=== PATIENT | male | born 1945 | race Caucasian/White ===

== ENCOUNTER 2016-07-01 15:20 | Inpatient (IN) | payer MEDICARE, OTHER ==
[2016-07-01] MEDS ORDERED: SODIUM CHLORIDE 0.9% 1,000 ML IV ONE (15:35)
--- NOTE | 2016-07-01 15:44 | ED ---
General Adult HPI - General Chief complaint: Extremity Injury, Lower Stated complaint: Fall Time Seen by Provider: 07/01/16 15:31 Source: patient, EMS, RN notes reviewed Mode of arrival: EMS Limitations: no limitations - History of Present Illness Initial comments: Patient is a pleasant 70-year-old male presenting to the emergency department following a fall. Incident occurred around 8 or so this morning. Patient states his chair broke and he fell to the ground. Patient did land on his right hip. Patient complains of pain since that time. Pain increases with movement. Patient is unable to get up or bear weight with the right hip. Patient is unclear if he hit his head. Patient has mild discomfort right posterior head. Patient denies any syncope or loss of consciousness. No neck or back pain. No chest pain or dyspnea. No abdominal pain. - Related Data Home Medications Medication Instructions Recorded Confirmed ALPRAZolam [Xanax] 0.25 mg PO Q8HR PRN 01/14/16 01/14/16 Albuterol Inhaler [Ventolin Hfa 1 - 2 puff INHALATION Q6HR PRN 01/15/16 01/15/16 Inhaler] Previous Rx's Medication Instructions Recorded HYDROcodone/APAP 7.5-325MG [[place] 1 tab PO Q6HR PRN #28 tab 01/14/16 7.5-325] Budesonide-Formot 160-4.5 Mcg 2 puff INHALATION BID #1 inhaler 01/15/16 [Symbicort 160-4.5 Mcg Inhaler] Levofloxacin [Levaquin] 750 mg PO DAILY #7 tab 01/15/16 Allergies Allergy/AdvReac Type Severity Reaction Status Date / Time No Known Allergies Allergy Verified 01/14/16 08:14 Review of Systems ROS Statement: Those systems with pertinent positive or pertinent negative responses have been documented in the HPI. ROS Other: All systems not noted in ROS Statement are negative. Constitutional: Denies: fever Eyes: Denies: eye pain ENT: Denies: ear pain Respiratory: Denies: cough Cardiovascular: Denies: chest pain Endocrine: Denies: fatigue Gastrointestinal: Denies: abdominal pain Genitourinary: Denies: dysuria Musculoskeletal: Reports: arthralgia Skin: Denies: rash Neurological: Reports: headache Past Medical History Past Medical History: COPD, Osteoarthritis (OA), Thyroid Disorder Additional Past Medical History / Comment(s): knees History of Any Multi-Drug Resistant Organisms: None Reported Past Surgical History: Orthopedic Surgery Additional Past Surgical History / Comment(s): knee surg. Past Anesthesia/Blood Transfusion Reactions: No Reported Reaction Past Psychological History: No Psychological Hx Reported Smoking Status: Former smoker Past Alcohol Use History: Rare Past Drug Use History: Marijuana Additional Drug Use History / Comment(s): rare use - Past Family History Mother Family Medical History: No Reported History ( at age 90), Unable to Obtain Father Family Medical History: Renal Disease ( from complications related to nephrostomy or kidney surgery) Brother(s) Family Medical History: Congestive Heart Failure (CHF) Sister(s) Family Medical History: Cancer (Lung cancer) Daughter(s) Family Medical History: No Reported History General Exam Limitations: no limitations General appearance: alert, in no apparent distress Head exam: Present: other (Mild soft tissue swelling right posterior scalp) Eye exam: Present: normal appearance, PERRL, EOMI ENT exam: Present: normal oropharynx Neck exam: Present: normal inspection. Absent: tenderness Respiratory exam: Present: normal lung sounds bilaterally. Absent: chest wall tenderness Cardiovascular Exam: Present: regular rate, normal rhythm Expanded Peripheral pulses: 2+: Posterior Tibialis (R), Dorsalis Pedis (R) GI/Abdominal exam: Present: soft. Absent: distended, tenderness Extremities exam: Present: tenderness (Moderate to severe tenderness right hip region.), other (Extremity is neurovascular intact) Back exam: Present: normal inspection. Absent: tenderness Neurological exam: Present: alert, CN II-XII intact. Absent: motor sensory deficit Expanded Motor strength exam: RUE: 5, LUE: 5, RLE: 5, LLE: 5 Psychiatric exam: Present: normal affect, normal mood Skin exam: Absent: rash Course Vital Signs 07/01/16 07/01/16 07/01/16 15:28 15:30 15:31 Temperature 98.6 F Pulse Rate 100 107 H Pulse Rate [ Apical] Respiratory 20 24 Rate Blood Pressure 176/106 207/89 O2 Sat by Pulse 96 97 Oximetry 07/01/16 07/01/16 07/01/16 15:42 16:27 17:00 Temperature 98.4 F Pulse Rate 98 95 97 Pulse Rate [ 105 H Apical] Respiratory 20 20 20 Rate Blood Pressure 178/91 179/77 157/87 O2 Sat by Pulse 98 99 99 Oximetry 07/01/16 07/01/16 18:00 19:00 Temperature Pulse Rate 100 98 Pulse Rate [ Apical] Respiratory 18 20 Rate Blood Pressure 156/97 178/80 O2 Sat by Pulse 98 95 Oximetry - Reevaluation(s) Reevaluation #1: 07/01/16 15:41 Patient did receive morphine by EMS just prior to arrival EKG Findings - EKG Comments: EKG Findings:: Sinus tachycardia 106. WA 132. QRS 94. QT 356. QTc 472. Normal axis. Normal QRS. Nonspecific ST-T. Medical Decision Making - Medical Decision Making Patient reevaluated and updated. Case discussed with practitioner Emelina bell, who will admit for Dr. Ceballos, covering for Dr. Canas. Patient will be given IV fluids and will need to have CPK and renal function monitored. Consult will be placed for orthopedics, Dr. Long notified. - Lab Data Result diagrams: 07/01/16 15:30 07/01/16 15:30 Lab Results 07/01/16 07/01/16 07/01/16 Range/Units 15:30 15:30 15:30 WBC 10.8 H (3.8-10.6) k/uL RBC 5.31 (4.30-5.90) m/uL Hgb 15.4 (13.0-17.5) gm/dL Hct 47.5 (39.0-53.0) % MCV 89.4 (80.0-100.0) fL MCH 29.0 (25.0-35.0) pg MCHC 32.5 (31.0-37.0) g/dL RDW 14.4 (11.5-15.5) % Plt Count 253 (150-450) k/uL Neutrophils % 80 % Lymphocytes % 13 % Monocytes % 6 % Eosinophils % 0 % Basophils % 0 % Neutrophils # 8.6 H (1.3-7.7) k/uL Lymphocytes # 1.4 (1.0-4.8) k/uL Monocytes # 0.7 (0-1.0) k/uL Eosinophils # 0.0 (0-0.7) k/uL Basophils # 0.0 (0-0.2) k/uL PT 10.7 (9.0-12.0) sec INR 1.1 (<1.1) APTT 22.7 (22.0-30.0) sec Sodium 142 (137-145) mmol/L Potassium 3.9 (3.5-5.1) mmol/L Chloride 103 (98-107) mmol/L Carbon Dioxide 27 (22-30) mmol/L Anion Gap 12 mmol/L BUN 16 (9-20) mg/dL Creatinine 0.89 (0.66-1.25) mg/dL Est GFR (MDRD) Af Amer >60 (>60 ml/min/1.73 sqM) Est GFR (MDRD) Non-Af >60 (>60 ml/min/1.73 sqM) Glucose 146 H (74-99) mg/dL Calcium 9.0 (8.4-10.2) mg/dL Total Bilirubin 1.2 (0.2-1.3) mg/dL AST 140 H (17-59) U/L ALT 49 (21-72) U/L Alkaline Phosphatase 99 (38-126) U/L Creatine Kinase (55-170) U/L Total Protein 7.9 (6.3-8.2) g/dL Albumin 4.2 (3.5-5.0) g/dL 07/01/16 Range/Units 15:30 WBC (3.8-10.6) k/uL RBC (4.30-5.90) m/uL Hgb (13.0-17.5) gm/dL Hct (39.0-53.0) % MCV (80.0-100.0) fL MCH (25.0-35.0) pg MCHC (31.0-37.0) g/dL RDW (11.5-15.5) % Plt Count (150-450) k/uL Neutrophils % % Lymphocytes % % Monocytes % % Eosinophils % % Basophils % % Neutrophils # (1.3-7.7) k/uL Lymphocytes # (1.0-4.8) k/uL Monocytes # (0-1.0) k/uL Eosinophils # (0-0.7) k/uL Basophils # (0-0.2) k/uL PT (9.0-12.0) sec INR (<1.1) APTT (22.0-30.0) sec Sodium (137-145) mmol/L Potassium (3.5-5.1) mmol/L Chloride (98-107) mmol/L Carbon Dioxide (22-30) mmol/L Anion Gap mmol/L BUN (9-20) mg/dL Creatinine (0.66-1.25) mg/dL Est GFR (MDRD) Af Amer (>60 ml/min/1.73 sqM) Est GFR (MDRD) Non-Af (>60 ml/min/1.73 sqM) Glucose (74-99) mg/dL Calcium (8.4-10.2) mg/dL Total Bilirubin (0.2-1.3) mg/dL AST (17-59) U/L ALT (21-72) U/L Alkaline Phosphatase (38-126) U/L Creatine Kinase 4693 H (55-170) U/L Total Protein (6.3-8.2) g/dL Albumin (3.5-5.0) g/dL - Radiology Data Radiology results: image reviewed (Hip x-ray shows no fracture of the femur. Questionable iliac crest fracture. Chest x-ray shows no acute process. CT of the right hip shows no fracture however does not show eyes the iliac crest region.) Disposition Clinical Impression: Rhabdomyolysis, Fracture of iliac crest Disposition: ADMITTED IP TO THIS HOSP
[2016-07-01 15:52] LABS: Basophils % (A) 0 %; CH 29.2; CHCM 32.8; Eosinophils % (A) 0 %; HCT 47.5 % (39.0-53.0); HDW 2.69; HGB 15.4 gm/dL (13.0-17.5); Luc % (Auto) 1; Lymphocytes # (A) 1.4 k/uL (1.0-4.8); Lymphocytes % (A) 13 %; MCHC 32.5 g/dL (31.0-37.0); MCV 89.4 fL (80.0-100.0); Mean Platelet Volume 7.2; Monocytes # (A) 0.7 k/uL (0-1.0); Monocytes % (A) 6 %; Neutrophils # (A) 8.6 k/uL (1.3-7.7); Neutrophils % (A) 80 %; RBC 5.31 m/uL (4.30-5.90); RDW 14.4 % (11.5-15.5); WBC 10.8 k/uL (3.8-10.6); WBC (Perox) 10.41
[2016-07-01 15:56] LABS: INR 1.1 (<1.1); Partial Thromboplastin Time 22.7 sec (22.0-30.0); Prothrombin Time 10.7 sec (9.0-12.0)
[2016-07-01 16:01] LABS: ALT 49 U/L (21-72); AST 140 U/L (17-59); Alkaline Phosphatase 99 U/L (38-126); Anion Gap 12 mmol/L; Blood Urea Nitrogen 16 mg/dL (9-20); Carbon Dioxide 27 mmol/L (22-30); Chloride 103 mmol/L (98-107); Glucose 146 mg/dL (74-99); Non-African American GFR(MDRD) >60 (>60 ml/min/1.73 sqM); Potassium 3.9 mmol/L (3.5-5.1); Sodium 142 mmol/L (137-145); Total Bilirubin 1.2 mg/dL (0.2-1.3); Total Protein 7.9 g/dL (6.3-8.2)
--- NOTE | 2016-07-01 16:18 | CT ---
EXAMINATION TYPE: CT brain wo con DATE OF EXAM: 07/01/2016 4:03 PM COMPARISON: NONE HISTORY: 70-year-old male fell today and hit head. Patient has high blood pressure. TECHNIQUE: Examination was done in axial plane without intravenous contrast. Coronal and sagittal r econstructions performed. CT DLP: 2116 mGycm Automated exposure control for dose reduction was used. FINDINGS: There is extensive motion artifact limiting the evaluation. No calvarial fracture is seen. Large scal p hematoma posteriorly extending up to the vertex. There is mild ventriculomegaly likely in part due to central cerebral atrophy. Moderate confluent per iventricular and deep white matter hypodensities. Allowing for all of the motion artifacts, no definite acute intracranial hemorrhage. No acute ischemi c changes, masses, mass effect, midline shift, or extra-axial fluid collection seen. No effacement of cerebral sulci or basal subarachnoid cisterns. Minimal opacification inferior most left mastoid air cells. IMPRESSION: 1. Extensive motion artifact limiting evaluation. No definite acute intracranial abnormality seen. 2. Large posterior scalp hematoma extending up towards the vertex. No underlying skull fracture. 3. Ventriculomegaly likely in part due to central cerebral atrophy. Correlate for a component of NPH. 4. Moderate confluent white matter hypodensities likely changes related to chronic small vessel ische arely disease.
--- NOTE | 2016-07-01 16:21 | XR ---
EXAMINATION TYPE: XR chest 1V portable DATE OF EXAM: 07/01/2016 4:16 PM Comparison: 10/27/2014 Clinical History: 70-year-old male with fall and pain Findings: Heart is upper limits of normal in size. Aorta and pulmonary vasculature within normal limits. Mild i nterstitial prominence is unchanged. No consolidation or pleural effusion seen. Impression: Chronic changes without acute process.
--- NOTE | 2016-07-01 16:29 | XR ---
EXAMINATION TYPE: XR Hip RT and AP Pelvis DATE OF EXAM: 07/01/2016 4:16 PM COMPARISON: NONE HISTORY: 70-year-old male right hip pain after fall TECHNIQUE: AP view pelvis and 2 views right hip. FINDINGS: Limited visualization of the femoral necks due to external rotation of the hips during patient positi oning. No displaced fracture seen at the hips. There is curvilinear bone density seen projecting above the right iliac bone. SI joints appear symmet linda and intact as does the pubic symphysis. IMPRESSION: 1. External rotation at the hips limiting adequate visualization of the femoral necks. No displaced h ip fracture seen. If the patient is nonweightbearing or concern for underlying occult fracture, CT or MRI can be performed. 2. Clinical correlation recommended for large curvilinear bone density projecting above the right amara ac bone. The possibility of an age indeterminate avulsion fracture of the right iliac crest is diffic ult to exclude but would be an unusual injury in an adult patient. Correlate for any focal symptoms i n this area and for any prior trauma history.
--- NOTE | 2016-07-01 17:07 | CT ---
EXAMINATION TYPE: CT hip RT wo con DATE OF EXAM: 07/01/2016 4:58 PM COMPARISON: Radiographs today HISTORY: 70-year-old male with right hip pain after fall injury. TECHNIQUE: Contiguous axial scanning of the right hip without IV contrast. Coronal and sagittal recon structions performed. CT DLP: 1102.6 mGycm Automated exposure control for dose reduction was used. FINDINGS: The patient's hip continues to remain prominently externally rotated. There is moderate degenerative joint space narrowing at the right hip. No acute fracture is seen of the acetabulum or proximal right femur. No significant hip joint effusion. There is prominent enthesopathy along the posterior superior margin of the acetabulum at the origin o f the tensor fascia kathryn. IMPRESSION: 1. THE PATIENT'S HIP CONTINUES TO REMAIN PROMINENTLY EXTERNALLY ROTATED. QUERY, IS THE PATIENT UNABLE TO REPOSITION THE HIP? NO ACUTE FRACTURE IS IDENTIFIED. 2. UNDERLYING MILD TO MODERATE OSTEOARTHROSIS. 3. THE RIGHT ILIAC CREST IS NOT INCLUDED ON THIS HIP EXAM. FURTHER CLINICAL CORRELATION IS RECOMMENDE D FOR THE RADIOGRAPHIC FINDINGS.
[2016-07-01] MEDS ORDERED: MORPHINE SULFATE 4 MG/ML SYRINGE IVP STA (19:02)
[2016-07-01] MEDS ORDERED: NALOXONE 0.4 MG/ML 1 ML VIAL IV PRN (19:48)
[2016-07-01] MEDS ORDERED: MORPHINE SULFATE 4 MG/ML SYRINGE IV PRN (19:48)
[2016-07-01] MEDS: SODIUM CHLORIDE 0.9% 1,000 ML IV SCH (21:05)
[2016-07-01 21:40] LABS: Appearance,Urine Clear (Clear); Bacteria,Urine Rare /hpf; Bilirubin,Urine Negative (Negative); Glucose,Urine (UA) Trace (Negative); Ketones,Urine Negative (Negative); Leukocyte Esterase,Urine Negative (Negative); Mucus,Urine Few /hpf; Nitrite,Urine Negative (Negative); PH, Urine 5.5 (5.0-8.0); Particle Count 5257; Protein,Urine 1+ (Negative); RBC,Urine 3 /hpf (0-5); Specific Gravity,Urine 1.023 (1.001-1.035); UA Billing (MACRO vs. MICRO) MICRO; Urobilinogen,Urine <2.0 mg/dL (<2.0); WBC,Urine 2 /hpf (0-5)
[2016-07-01] MEDS ORDERED: IPRATROPIUM-ALBUTEROL 3 ML NEB INHALATION PRN (22:42)
[2016-07-01] MEDS ORDERED: ALBUTEROL INHALER 60 PUFF/8 GM INHALER INHALATION PRN (22:42)
[2016-07-01] MEDS ORDERED: ALPRAZolam 0.5 MG TAB PO PRN (22:44)
[2016-07-02 01:04] LABS: Creatine Kinase MB 9.2 ng/mL (0.0-2.4)
[2016-07-02] MEDS: SODIUM CHLORIDE 0.9% 1,000 ML IV SCH ×2 (05:19→09:26)
[2016-07-02 08:03] LABS: Anion Gap 7 mmol/L; Blood Urea Nitrogen 16 mg/dL (9-20); Calcium 8.3 mg/dL (8.4-10.2); Carbon Dioxide 26 mmol/L (22-30); Chloride 107 mmol/L (98-107); Glucose 116 mg/dL (74-99); Non-African American GFR(MDRD) >60 (>60 ml/min/1.73 sqM); Potassium 3.8 mmol/L (3.5-5.1); Sodium 140 mmol/L (137-145)
[2016-07-02 08:07] LABS: Creatine Kinase MB 6.4 ng/mL (0.0-2.4)
[2016-07-02] MEDS: SYMBICORT 160-4.5 MCG INHALER INHALATION SCH ×2 (08:21→21:18)
[2016-07-02] MEDS: PANTOPRAZOLE 40 MG/10 ML VIAL IV SCH (09:25)
--- NOTE | 2016-07-02 10:12 | P.CNOR ---
History of Present Illness - HPI Consult date: 07/01/16 History of present illness: This is a 70-year-old male who presented to the on 07/01/2016 after a fall causing right hip pain. Patient states he fell out of his chair 2 days ago and landed on the right hip. Orthopedics is consulted due to possible avulsion fracture noted to the right hip. Patient states pain is worse to the lateral right hip, but patient states the pain has improved. Patient denies any numbness/weakness/tingling. Patient states he has not been able to ambulate since the injury. Patient denies being on any anticoagulants. Patient denies any known past injuries of the hip. Review of Systems See HPI. Past Medical History Past Medical History: COPD, Osteoarthritis (OA) Additional Past Medical History / Comment(s): knees-arthritis History of Any Multi-Drug Resistant Organisms: None Reported Past Surgical History: Orthopedic Surgery Additional Past Surgical History / Comment(s): knee surg. Past Anesthesia/Blood Transfusion Reactions: No Reported Reaction Past Psychological History: No Psychological Hx Reported Smoking Status: Former smoker Past Alcohol Use History: Rare Past Drug Use History: Marijuana Additional Drug Use History / Comment(s): rare use - Past Family History Mother Family Medical History: No Reported History, Unable to Obtain Father Family Medical History: Renal Disease Brother(s) Family Medical History: Congestive Heart Failure (CHF) Sister(s) Family Medical History: Cancer Daughter(s) Family Medical History: No Reported History Medications and Allergies Home Medications Medication Instructions Recorded Confirmed Type Albuterol Inhaler [Ventolin Hfa 2 puff INHALATION RT-QID PRN 01/15/16 07/01/16 History Inhaler] ALPRAZolam [Xanax] 1 mg PO HS PRN 07/01/16 07/01/16 History Budesonide-Formot 160-4.5 Mcg 2 puff INHALATION RT-BID 07/01/16 07/01/16 History [Symbicort 160-4.5 Mcg Inhaler] Ipratropium/Albuterol Sulfate 2 puff INHALATION RT-BID PRN 07/01/16 07/01/16 History [Combivent Respimat Inhaler] [place]-3 Fatty Acids/Fish Oil [Fish 1 cap PO DAILY 07/01/16 07/01/16 History Oil 1,000 mg Softgel] Triamcinolone 0.1% Cream [Kenalog] 1 applicatio TOPICAL BID PRN 07/01/16 History Allergies Allergy/AdvReac Type Severity Reaction Status Date / Time No Known Allergies Allergy Verified 01/14/16 08:14 Physical Examination Vital signs are stable. Patient has full foot and ankle motion. There is mild tenderness to palpation of the lateral aspect of the right hip. No ecchymosis. No pain with range of motion of the right hip. Neurovascular status is intact. Results - Labs Labs: Abnormal Lab Results - Last 24 Hours (Table) 07/01/16 07/02/16 07/02/16 Range/Units 21:30 00:03 07:09 Glucose 116 H (74-99) mg/dL Calcium 8.3 L (8.4-10.2) mg/dL Total Creatine Kinase 2420 H (55-170) U/L CK-MB (CK-2) 9.2 H* (0.0-2.4) ng/mL Urine Protein 1+ H (Negative) Urine Glucose (UA) Trace H (Negative) Urine Bacteria Rare H (None) /hpf Urine Mucus Few H (None) /hpf 07/02/16 Range/Units 07:09 Glucose (74-99) mg/dL Calcium (8.4-10.2) mg/dL Total Creatine Kinase 1580 H (55-170) U/L CK-MB (CK-2) 6.4 H* (0.0-2.4) ng/mL Urine Protein (Negative) Urine Glucose (UA) (Negative) Urine Bacteria (None) /hpf Urine Mucus (None) /hpf Result Diagrams: 07/01/16 15:30 07/02/16 07:09 Assessment and Plan (1) Right hip pain Status: Acute Plan: #1. PT to evaluate patient's ability to ambulate. #2. No surgery is planned at this time.
[2016-07-02 12:53] LABS: Creatine Kinase MB 4.8 ng/mL (0.0-2.4)
[2016-07-02] MEDS ORDERED: TRIAMCINOLONE 0.1% CREAM 80 GM TUBE TOPICAL PRN (14:34)
[2016-07-02] MEDS: HYDROcodone/APAP 5-325MG 1 EACH TAB PO PRN ×2 (14:58→22:47)
[2016-07-02] MEDS ORDERED: KETOROLAC 30 MG/ML 1 ML VIAL IVP PRN (15:59)
--- NOTE | 2016-07-02 20:23 | HP ---
DATE OF ADMISSION: Patient is admitted secondary to mechanical fall and found to have avulsion fracture of the right hip. Patient also was found to have elevated creatinine because of the fall. There was suspicion of rhabdomyolysis, although my suspicion is extremely low for that, as his CK is not high enough to cause rhabdomyolysis and UA did not show any blood or myoglobin. Patient may have sleep apnea. He is morbidly obese. Patient will be evaluated by Physical Therapy. Patient denied any fever or chills. Patient denied any dysuria, nausea, vomiting. Patient was having pain in the hip area after his fall. Patient denied any syncopal episode. REVIEW OF SYSTEMS: CONSTITUTIONAL: No fever, no malaise, no fatigue. HEENT: No recent visual problems or hearing problems. Denied any sore throat. CARDIOVASCULAR: No chest pain, orthopnea, PND, no palpitations, no syncope. PULMONARY: No shortness of breath, no cough, no hemoptysis. GASTROINTESTINAL: No diarrhea, no nausea, no vomiting, no abdominal pain. Normoactive bowel sounds. NEUROLOGICAL: No headaches, no weakness, no numbness. HEMATOLOGICAL: Denies any bleeding or petechiae. GENITOURINARY: Denies any burning micturition, frequency, or urgency. MUSCULOSKELETAL/RHEUMATOLOGICAL: As described in HPI. ENDOCRINE: Denies any polyuria or polydipsia. The rest of the 14 point review of systems is negative. PAST MEDICAL HISTORY: 1. COPD. 2. Osteoarthritis. 3. Patient may have sleep apnea. Patient does have all symptoms of sleep apnea, including daytime sleeping, excessive snoring and apneic episodes as described by his . SOCIAL HISTORY: Former smoker. Denied any alcohol abuse. Occasional use of marijuana. FAMILY HISTORY: Father had renal disease. Brother had congestive heart failure. Sister had cancer. Home medications include: 1. Albuterol. 2. Alprazolam. 3. Budesonide/Formoterol. 4. Combivent. 5. [place]-3 fatty acids. 6. Triamcinolone. ALLERGIES: NO KNOWN DRUG ALLERGIES. PHYSICAL EXAMINATION: VITAL SIGNS: Temperature 98.0, pulse of 95, respiratory rate of 16. Blood pressure is 150/81. Saturating at 95% on room air. GENERAL: Morbidly obese. Alert and oriented x3. HEENT: Pupils are round and equally reacting to light. EOMI. No scleral icterus. No conjunctival pallor. Normocephalic, atraumatic. No pharyngeal erythema. No thyromegaly. CARDIOVASCULAR: S1 and S2 present. No murmurs, rubs, or gallops. PULMONARY: Chest is clear to auscultation, no wheezing or crackles. ABDOMEN: Soft, nontender, nondistended, normoactive bowel sounds. No palpable organomegaly. MUSCULOSKELETAL: Deferred to Orthopedic Surgery. EXTREMITIES: No cyanosis, clubbing, or pedal edema. NEUROLOGICAL: Gross neurological examination did not reveal any focal deficits. SKIN: No rashes. LABORATORY DATA: All the imaging was reviewed. There is a large scalp hematoma as well without any underlying skull fracture. ASSESSMENT AND PLAN: 1. Mechanical fall and avulsion fracture of the iliac crest. Management as per Orthopedic Surgery. Pain management and physical therapy consultation and stabilization of the hip. 2. Elevated creatine kinase secondary to fall with low suspicion of rhabdomyolysis. Patient will be continued on IV fluids. 3. Morbid obesity. Counseling was provided. 4. Sleep apnea. Patient will need an outpatient sleep study. 5. Restrictive lung disease with a competent of obstructive lung disease and chronic obstructive pulmonary disease without any acute exacerbation. Continue his home medications. Patient probably can be discharged tomorrow to subacute rehabilitation, depending on the assessment from Physical Therapy and Occupational Therapy.
[2016-07-03] MEDS: SODIUM CHLORIDE 0.9% 1,000 ML IV SCH ×3 (07:14→15:11)
[2016-07-03] MEDS: SYMBICORT 160-4.5 MCG INHALER INHALATION SCH ×2 (08:22→20:35)
[2016-07-03] MEDS: PANTOPRAZOLE 40 MG/10 ML VIAL IV SCH (08:56)
[2016-07-03 14:22] VITALS: RESP 18
[2016-07-03] MEDS: HYDROcodone/APAP 5-325MG 1 EACH TAB PO PRN ×2 (15:51→20:00)
--- NOTE | 2016-07-03 20:24 | PN ---
Patient's pain is fairly controlled and he is complaining of pain now and patient is admitted for pelvic fracture. Awaiting disposition to subacute rehabilitation tomorrow. His CK has come down. No renal dysfunction at this time. REVIEW OF SYSTEMS: CARDIOVASCULAR: No chest pain, no orthopnea, no PND, no palpitations. PULMONARY: Denied any shortness of breath. No cough or hemoptysis. GASTROINTESTINAL: No diarrhea, nausea or vomiting. No abdominal pain. Normoactive bowel sounds. NEUROLOGIC: No headaches, no weakness, no numbness. MUSCULOSKELETAL: As described in HPI. Medications were reviewed. PHYSICAL EXAMINATION: VITAL SIGNS: Temperature 99.2, pulse of 95, respiratory rate of 18. Blood pressure is 160/74. Saturating at 94% on room air. GENERAL: Morbidly obese. Alert and oriented x3. HEENT: Pupils are round and equally reacting to light. EOMI. No scleral icterus. No conjunctival pallor. Normocephalic, atraumatic. No pharyngeal erythema. No thyromegaly. CARDIOVASCULAR: S1 and S2 present. No murmurs, rubs, or gallops. PULMONARY: Chest is clear to auscultation, no wheezing or crackles. ABDOMEN: Soft, nontender, nondistended, normoactive bowel sounds. No palpable organomegaly. MUSCULOSKELETAL: Deferred to Orthopedic Surgery. EXTREMITIES: No cyanosis, clubbing, or pedal edema. NEUROLOGICAL: Gross neurological examination did not reveal any focal deficits. SKIN: No rashes. ASSESSMENT AND PLAN 1. Mechanical fall and avulsion fracture of the iliac crest. Patient will need physical therapy. Disposition to subacute rehabilitation. Pain management until then. 2. Elevated creatine kinase secondary to fall. Low suspicion for rhabdomyolysis. Patient does not have any kidney dysfunction. 3. Morbid obesity. Counseling was provided. 4. Patient will need sleep study for sleep apnea. 5. Possibility of restrictive lung disease from morbid obesity.
[2016-07-04] MEDS: SODIUM CHLORIDE 0.9% 1,000 ML IV SCH ×3 (04:21→08:16)
[2016-07-04] MEDS: HYDROcodone/APAP 5-325MG 1 EACH TAB PO PRN (05:31)
[2016-07-04] MEDS: SYMBICORT 160-4.5 MCG INHALER INHALATION SCH (08:37)
[2016-07-04] MEDS ORDERED: PANTOPRAZOLE 40 MG TABLET PO SCH (09:00)
--- NOTE | 2016-07-04 12:48 | P.DS ---
Providers Date of admission: 07/01/16 19:48 Expected date of discharge: 07/04/16 Attending physician: MD Dr. Josias Burger Consults: AMA Kruse Primary care physician: Oskar [facility] Course: Final Diagnoses: 1. Mechanical fall with avulsion fracture of the right iliac crest, management as per orthopedic surgery, pain management and physical therapy regarding stabilization of hip ,nonacute as per orthopedics with no surgical intervention recommended. 2. Elevated creatinine kinase secondary to follow with low suspicion of rhabdomyolysis, 3. Morbid obesity, BMI 44.3 4. Sleep apnea, patient will need outpatient sleep study 5. Restrictive lung disease with a component of obstructive lung disease, COPD without acute exacerbation. Hospital course this is a 70-year-old gentleman admitted status post mechanical fall , right hip pain with discovered avulsion fracture of the right hip, elevated CK possible rhabdomyolysis and multiple other medical issues. She denied syncope, fever, chills, dysuria, nausea vomiting. UA failed to show any blood or myoglobin. Retained on IV fluid hydration with significant clinical improvement. Evaluated by orthopedics, with Hip x-ray and CT reviewed; no acute fracture, no surgical intervention. Evaluated by physical therapy, activity as per physical therapy and orthopedics .Patient is being discharged to [facility] rehab in a stable condition with guarded prognosis. Patient Condition at Discharge: Stable Plan - Discharge Summary New Discharge Prescriptions: ALPRAZolam [Xanax] 0.5 mg PO DAILY PRN #10 tab PRN Reason: Anxiety HYDROcodone/APAP 5-325MG [[place] 5-325] 1 each PO Q6HR PRN #20 tab PRN Reason: Moderate Pain Discharge Medication List [place]-3 Fatty Acids/Fish Oil [Fish Oil 1,000 mg Softgel] 1 cap PO DAILY [History] Triamcinolone 0.1% Cream [Kenalog] 1 applicatio TOPICAL BID PRN 07/01/16 [ History] ALPRAZolam [Xanax] 0.5 mg PO DAILY PRN #10 tab 07/04/16 [Rx] Budesonide-Formot 160-4.5 Mcg [Symbicort 160-4.5 Mcg Inhaler] 2 puff INHALATION RT-BID puff 07/04/16 [Rx] HYDROcodone/APAP 5-325MG [[place] 5-325] 1 each PO Q6HR PRN #20 tab 07/04/16 [Rx] Ipratropium-Albuterol Nebulize [Duoneb 0.5 mg-3 mg/3 ml Soln] 3 ml INHALATION RT -BID PRN #0 ampul.neb 07/04/16 [Rx] Pantoprazole [Protonix] 40 mg PO DAILY tablet. 07/04/16 [Rx] Follow up Appointment(s)/Referral(s): Yuri Baez MD [STAFF PHYSICIAN] - 3 Days (while at [facility]) Oskar Larkin DO [Primary Care Provider] - 1 Week (After DC from [facility]) [facility] [Provider Group] - As Needed Activity/Diet/Wound Care/Special Instructions: [facility] cbc,bmp [facility] 3 days Discharge Disposition: TRANSFER TO SNF/ECF
[2016-07-04 14:27] VITALS: BP 147/85; PULSE 82; TEMP 97.4
== END 2016-07-04 15:49 | DRG 536 ==
LOC: EC 15:20 → 3SUR 19:48
PROVIDERS: ADMIT Internal Medicine; ATTEND Internal Medicine
DX: S32.311A Displaced avulsion fracture of right ilium, initial encounter for closed fracture (principal); J44.9 Chronic obstructive pulmonary disease, unspecified; Z68.41 Body mass index [BMI] 40.0-44.9, adult; E66.01 Morbid (severe) obesity due to excess calories; R79.89 Other specified abnormal findings of blood chemistry; R00.0 Tachycardia, unspecified; E07.9 Disorder of thyroid, unspecified; M17.0 Bilateral primary osteoarthritis of knee; R51 Headache; J98.4 Other disorders of lung; G47.30 Sleep apnea, unspecified; F12.90 Cannabis use, unspecified, uncomplicated; Z82.49 Family history of ischemic heart disease and other diseases of the circulatory system; Z87.891 Personal history of nicotine dependence; Z79.51 Long term (current) use of inhaled steroids; Z79.899 Other long term (current) drug therapy; Z71.3 Dietary counseling and surveillance; Z80.1 Family history of malignant neoplasm of trachea, bronchus and lung; Z84.1 Family history of disorders of kidney and ureter; W07.XXXA Fall from chair, initial encounter; Y92.019 Unspecified place in single-family (private) house as the place of occurrence of the external cause
CPT/HCPCS: 36415; 70450; 71010; 73502; 80048; 80053; 81001; 82550; 82553; 85025; 85610; 85730; 93005; 94640; 94760; 96374; 96376; 99285

== ENCOUNTER 2016-08-21 20:17 | Inpatient (IN) | payer MEDICARE, OTHER ==
[2016-08-21] MEDS ORDERED: SODIUM CHLORIDE 0.9% 1,000 ML IV STA ×2 (20:25)
--- NOTE | 2016-08-21 20:40 | ED ---
Weakness HPI - General Chief complaint: Weakness Stated complaint: Nausea, Vomiting Time Seen by Provider: 08/21/16 20:17 Source: patient, EMS, RN notes reviewed, old records reviewed Mode of arrival: EMS Limitations: no limitations - History of Present Illness Initial comments: This is a 70-year-old male was running by EMS for evaluation was weakness. He had nausea vomiting and also was incontinent of urine and bowel movements. He was lethargic and pale per paramedics. Blood pressure 178/72/100. CMP chair he would lean to the left. No focal deficits was rechecked upper and lower extremity movement no facial drooping. He has a cough fevers chills sweats. No dysuria. MD Complaint: generalized weakness - Related Data Home Medications Medication Instructions Recorded Confirmed Albuterol Inhaler [Ventolin Hfa 2 puff INHALATION RT-Q6H PRN 08/21/16 08/21/16 Inhaler] HYDROcodone/APAP 5-325MG [[place] 1 tab PO Q6HR PRN 08/21/16 08/21/16 5-325] Previous Rx's Medication Instructions Recorded ALPRAZolam [Xanax] 0.5 mg PO DAILY PRN #10 tab 07/04/16 Budesonide-Formot 160-4.5 Mcg 2 puff INHALATION RT-BID puff 07/04/16 [Symbicort 160-4.5 Mcg Inhaler] Allergies Allergy/AdvReac Type Severity Reaction Status Date / Time No Known Allergies Allergy Verified 08/21/16 22:11 Review of Systems ROS Statement: Those systems with pertinent positive or pertinent negative responses have been documented in the HPI. ROS Other: All systems not noted in ROS Statement are negative. Past Medical History Past Medical History: COPD, Osteoarthritis (OA) Additional Past Medical History / Comment(s): knees-arthritis History of Any Multi-Drug Resistant Organisms: None Reported Past Surgical History: Orthopedic Surgery Additional Past Surgical History / Comment(s): knee surg. Past Anesthesia/Blood Transfusion Reactions: No Reported Reaction Past Psychological History: No Psychological Hx Reported Smoking Status: Former smoker Past Alcohol Use History: Rare Past Drug Use History: Marijuana - Past Family History Mother Family Medical History: No Reported History, Unable to Obtain Father Family Medical History: Renal Disease Brother(s) Family Medical History: Congestive Heart Failure (CHF) Sister(s) Family Medical History: Cancer Daughter(s) Family Medical History: No Reported History General Exam - General Exam Comments Initial Comments: Physical well-nourished awake alert but somewhat lethargic male Limitations: no limitations General appearance: alert, in no apparent distress Head exam: Present: atraumatic, normocephalic, normal inspection Eye exam: Present: normal appearance, PERRL, EOMI. Absent: scleral icterus, conjunctival injection, periorbital swelling ENT exam: Present: mucous membranes dry Neck exam: Present: normal inspection. Absent: tenderness, meningismus, lymphadenopathy Respiratory exam: Present: normal lung sounds bilaterally. Absent: respiratory distress, wheezes, rales, rhonchi, stridor Cardiovascular Exam: Present: regular rate, normal rhythm, normal heart sounds. Absent: systolic murmur, diastolic murmur, rubs, gallop, clicks GI/Abdominal exam: Present: soft, normal bowel sounds. Absent: distended, tenderness, guarding, rebound, rigid Extremities exam: Present: normal inspection, full ROM, normal capillary refill. Absent: tenderness, pedal edema, joint swelling, calf tenderness Back exam: Present: normal inspection Neurological exam: Present: alert, oriented X3, CN II-XII intact Psychiatric exam: Present: normal affect, normal mood Skin exam: Present: warm, dry, intact, normal color. Absent: rash Course Vital Signs 08/21/16 08/21/16 08/21/16 20:25 20:55 22:23 Temperature 97.8 F Pulse Rate 88 81 80 Respiratory 20 20 20 Rate Blood Pressure 170/82 153/71 177/78 O2 Sat by Pulse 94 L 98 98 Oximetry 08/21/16 23:38 Temperature 97.7 F Pulse Rate 82 Respiratory 18 Rate Blood Pressure 171/85 O2 Sat by Pulse 95 Oximetry EKG Findings - EKG Results: EKG: interpreted by ERMD, sinus rhythm (Sinus rhythm rate of 80 MA interval 150 QRS 98 QT/QTC of 400/461 nonspecific T-wave configuration no changes seen with compared to an EKG dated 07/16) Medical Decision Making - Medical Decision Making I did discuss findings with the patient family and later with the patient the CAT scan report patient be admitted consultation by neurology. This is not an acute CVA patient does not want code stroke activation this time. - Lab Data Result diagrams: 08/21/16 20:25 08/21/16 20:25 Lab Results 08/21/16 08/21/16 08/21/16 Range/Units 20:25 20:25 20:25 WBC 7.8 (3.8-10.6) k/uL RBC 5.34 (4.30-5.90) m/uL Hgb 16.2 (13.0-17.5) gm/dL Hct 46.4 (39.0-53.0) % MCV 87.0 (80.0-100.0) fL MCH 30.4 (25.0-35.0) pg MCHC 35.0 (31.0-37.0) g/dL RDW 13.9 (11.5-15.5) % Plt Count 251 (150-450) k/uL Neutrophils % 84 % Lymphocytes % 10 % Monocytes % 4 % Eosinophils % 1 % Basophils % 0 % Neutrophils # 6.6 (1.3-7.7) k/uL Lymphocytes # 0.8 L (1.0-4.8) k/uL Monocytes # 0.3 (0-1.0) k/uL Eosinophils # 0.1 (0-0.7) k/uL Basophils # 0.0 (0-0.2) k/uL PT (9.0-12.0) sec INR (<1.1) APTT (22.0-30.0) sec Sodium 139 (137-145) mmol/L Potassium 4.4 (3.5-5.1) mmol/L Chloride 104 (98-107) mmol/L Carbon Dioxide 22 (22-30) mmol/L Anion Gap 13 mmol/L BUN 16 (9-20) mg/dL Creatinine 0.79 (0.66-1.25) mg/dL Est GFR (MDRD) Af Amer >60 (>60 ml/min/1.73 sqM) Est GFR (MDRD) Non-Af >60 (>60 ml/min/1.73 sqM) Glucose 162 H (74-99) mg/dL Calcium 8.9 (8.4-10.2) mg/dL Magnesium 1.7 (1.6-2.3) mg/dL Total Bilirubin 0.9 (0.2-1.3) mg/dL AST 33 (17-59) U/L ALT 27 (21-72) U/L Alkaline Phosphatase 108 (38-126) U/L Total Creatine Kinase 73 (55-170) U/L CK-MB (CK-2) 1.5 (0.0-2.4) ng/mL CK-MB (CK-2) Rel Index 2.1 Troponin I <0.012 (0.000-0.034) ng/mL NT-Pro-B Natriuret Pep pg/mL Total Protein 7.6 (6.3-8.2) g/dL Albumin 4.1 (3.5-5.0) g/dL Amylase 31 (30-110) U/L Lipase 51 (23-300) U/L Urine Color Urine Appearance (Clear) Urine pH (5.0-8.0) Ur Specific [place] (1.001-1.035) Urine Protein (Negative) Urine Glucose (UA) (Negative) Urine Ketones (Negative) Urine Blood (Negative) Urine Nitrite (Negative) Urine Bilirubin (Negative) Urine Urobilinogen (<2.0) mg/dL Ur Leukocyte Esterase (Negative) 08/21/16 08/21/16 08/21/16 Range/Units 20:25 20:25 22:26 WBC (3.8-10.6) k/uL RBC (4.30-5.90) m/uL Hgb (13.0-17.5) gm/dL Hct (39.0-53.0) % MCV (80.0-100.0) fL MCH (25.0-35.0) pg MCHC (31.0-37.0) g/dL RDW (11.5-15.5) % Plt Count (150-450) k/uL Neutrophils % % Lymphocytes % % Monocytes % % Eosinophils % % Basophils % % Neutrophils # (1.3-7.7) k/uL Lymphocytes # (1.0-4.8) k/uL Monocytes # (0-1.0) k/uL Eosinophils # (0-0.7) k/uL Basophils # (0-0.2) k/uL PT 10.8 (9.0-12.0) sec INR 1.1 (<1.1) APTT 22.6 (22.0-30.0) sec Sodium (137-145) mmol/L Potassium (3.5-5.1) mmol/L Chloride (98-107) mmol/L Carbon Dioxide (22-30) mmol/L Anion Gap mmol/L BUN (9-20) mg/dL Creatinine (0.66-1.25) mg/dL Est GFR (MDRD) Af Amer (>60 ml/min/1.73 sqM) Est GFR (MDRD) Non-Af (>60 ml/min/1.73 sqM) Glucose (74-99) mg/dL Calcium (8.4-10.2) mg/dL Magnesium (1.6-2.3) mg/dL Total Bilirubin (0.2-1.3) mg/dL AST (17-59) U/L ALT (21-72) U/L Alkaline Phosphatase (38-126) U/L Total Creatine Kinase (55-170) U/L CK-MB (CK-2) (0.0-2.4) ng/mL CK-MB (CK-2) Rel Index Troponin I (0.000-0.034) ng/mL NT-Pro-B Natriuret Pep 328 pg/mL Total Protein (6.3-8.2) g/dL Albumin (3.5-5.0) g/dL Amylase (30-110) U/L Lipase (23-300) U/L Urine Color Yellow Urine Appearance Clear (Clear) Urine pH 7.0 (5.0-8.0) Ur Specific [place] 1.013 (1.001-1.035) Urine Protein Trace H (Negative) Urine Glucose (UA) Trace H (Negative) Urine Ketones 1+ H (Negative) Urine Blood Negative (Negative) Urine Nitrite Negative (Negative) Urine Bilirubin Negative (Negative) Urine Urobilinogen <2.0 (<2.0) mg/dL Ur Leukocyte Esterase Negative (Negative) - Radiology Data Radiology results: report reviewed (I did review the imaging and reports and discussed the CAT scan with radiologist. CAT scan does show evidence of a interval development of a posterior left cerebellar infarct since her last CAT scan.), image reviewed Disposition Clinical Impression: CVA (cerebral vascular accident), Near syncope Disposition: ADMITTED IP TO THIS [facility] Condition: Stable Referrals: Oskar Larkin DO [Primary Care Provider] - 1-2 days
[2016-08-21 20:43] LABS: Basophils % (A) 0 %; CHCM 33.5; Eosinophils # (A) 0.1 k/uL (0-0.7); Eosinophils % (A) 1 %; HCT 46.4 % (39.0-53.0); HDW 2.83; HGB 16.2 gm/dL (13.0-17.5); Luc # (Auto) 0.07; Luc % (Auto) 1; Lymphocytes # (A) 0.8 k/uL (1.0-4.8); Lymphocytes % (A) 10 %; MCH 30.4 pg (25.0-35.0); Mean Platelet Volume 7.4; Monocytes # (A) 0.3 k/uL (0-1.0); Monocytes % (A) 4 %; Neutrophils # (A) 6.6 k/uL (1.3-7.7); Neutrophils % (A) 84 %; RBC 5.34 m/uL (4.30-5.90); RDW 13.9 % (11.5-15.5); WBC 7.8 k/uL (3.8-10.6); WBC (Perox) 7.62
[2016-08-21 20:52] LABS: ALT 27 U/L (21-72); AST 33 U/L (17-59); Alkaline Phosphatase 108 U/L (38-126); Amylase 31 U/L (30-110); Anion Gap 13 mmol/L; Blood Urea Nitrogen 16 mg/dL (9-20); Calcium 8.9 mg/dL (8.4-10.2); Carbon Dioxide 22 mmol/L (22-30); Chloride 104 mmol/L (98-107); Glucose 162 mg/dL (74-99); Magnesium 1.7 mg/dL (1.6-2.3); Non-African American GFR(MDRD) >60 (>60 ml/min/1.73 sqM); Potassium 4.4 mmol/L (3.5-5.1); Sodium 139 mmol/L (137-145); Total Bilirubin 0.9 mg/dL (0.2-1.3); Total Protein 7.6 g/dL (6.3-8.2)
[2016-08-21 20:54] LABS: INR 1.1 (<1.1); Partial Thromboplastin Time 22.6 sec (22.0-30.0); Prothrombin Time 10.8 sec (9.0-12.0)
--- NOTE | 2016-08-21 21:14 | XR ---
EXAMINATION TYPE: XR chest 2V DATE OF EXAM: 08/21/2016 COMPARISON: 07/01/2016 HISTORY: Weakness TECHNIQUE: Frontal and lateral views of the chest are obtained. FINDINGS: Heart and mediastinum are normal. Lungs are clear. There is no pleural effusion. Bony thor ax appears intact. There are chest leads. IMPRESSION: No active cardiopulmonary disease. No change.
[2016-08-21 21:24] LABS: Creatine Kinase 73 U/L (55-170)
[2016-08-21 21:36] LABS: Creatine Kinase MB 1.5 ng/mL (0.0-2.4); Troponin I <0.012 ng/mL (0.000-0.034)
[2016-08-21 22:33] LABS: Appearance,Urine Clear (Clear); Bilirubin,Urine Negative (Negative); Glucose,Urine (UA) Trace (Negative); Ketones,Urine 1+ (Negative); Leukocyte Esterase,Urine Negative (Negative); Nitrite,Urine Negative (Negative); Protein,Urine Trace (Negative); Specific Gravity,Urine 1.013 (1.001-1.035); UA Billing (MACRO vs. MICRO) CHEM; Urobilinogen,Urine <2.0 mg/dL (<2.0)
--- NOTE | 2016-08-21 23:21 | CT ---
EXAM: CT Head Without Intravenous Contrast CLINICAL HISTORY: Reason: Weakness and dizziness TECHNIQUE: Axial computed tomography images of the head/brain without intravenous contrast. CTDI is 57.40 mGy and DLP is 922.80 mGy-cm. This CT exam was performed using one or more of the following dose reduction techniques: automated exposure control, adjustment of the mA and/or kV according to patient size, and/or use of iterative reconstruction technique. COMPARISON: 07/01/[address] FINDINGS: Brain: There is now hypodensity within the inferior and medial left cerebellum, suggesting sequela from interval infarct, that may be recent. No associated mass effect or midline shift. There is again prominence of the ventricles slightly greater than the degree of sulcal prominence that may be on the basis of advanced central atrophy versus NPH. Likewise stable bilateral periventricular white matter hypodensity most commonly seen on a chronic small vessel ischemic basis. No acute intracranial hemorrhage. Ventricles: Stable. Bones/joints: No acute fracture. Soft tissues: Interval resolution of previous posterior scalp soft tissue swelling. Sinuses: Unremarkable as visualized. No acute sinusitis. Mastoid air cells: Stable. No mastoid effusion. IMPRESSION: Interval development of inferior left cerebellar infarct, which may be recent. No associated mass effect or shift is seen. [employer] 08/21/16 23:25 Call Doctor Regarding Stroke, called Dr. Godwin on 08/21 23: 24 (-04:00)
[2016-08-21] MEDS ORDERED: HYDROcodone/APAP 5-325MG 1 EACH TAB PO PRN (23:53)
[2016-08-21] MEDS ORDERED: ALPRAZolam 0.5 MG TAB PO PRN (23:53)
[2016-08-21] MEDS ORDERED: ALBUTEROL NEBULIZED 2.5 MG/3 ML INHALATION PRN (23:53)
[2016-08-22] MEDS: SODIUM CHLORIDE 0.9% 1,000 ML IV SCH ×2 (02:02→08:49)
[2016-08-22 06:28] LABS: Cholesterol 219 mg/dL (<200); HDL Cholesterol 39 mg/dL (40-60); Triglycerides 143 mg/dL (<150)
[2016-08-22] MEDS: SYMBICORT 160-4.5 MCG INHALER INHALATION SCH ×2 (07:38→20:13)
[2016-08-22 10:18] VITALS: BMI 41.0
--- NOTE | 2016-08-22 11:00 | US ---
EXAMINATION TYPE: US carotid duplex BILAT DATE OF EXAM: 08/22/2016 COMPARISON: NONE CLINICAL HISTORY: Stenosis. Overall body weakness. Weakness and dizziness yesterday. EXAM MEASUREMENTS: RIGHT: Peak Systolic Velocity (PSV) cm/sec ----- Right CCA: 48.1 ----- Right ICA: 41.2 ----- Right ECA: 92.5 ICA/CCA ratio: 0.9 RIGHT: End Diastole cm/sec ----- Right CCA: 10.6 ----- Right ICA: 15.6 ----- Right ECA: 11.6 LEFT: Peak Systolic Velocity (PSV) cm/sec ----- Left CCA: 59.0 ----- Left ICA: 68.8 ----- Left ECA: 120.5 ICA/CCA ratio: 1.2 LEFT: End Diastole cm/sec ----- Left CCA: 9.5 ----- Left ICA: 18.2 ----- Left ECA: 13.9 VERTEBRALS (direction of flow): Right Vertebral: Antegrade Left Vertebral: Antegrade Mild to moderate irregular intimal wall changes are noted at bilateral carotid bifurcation, but PSV i s wnl bilaterally. Exam is technically limited by short, thick neck and low carotid bifurcation. Suboptimal study per technologist as noted above. Grayscale images show more prominent plaque at left carotid bulb. Velocity measurements and ratios in visualized portion of both internal carotid arteri es is within normal limits. IMPRESSION: No hemodynamically significant stenosis is seen in either internal carotid artery.
[2016-08-22] MEDS: ASPIRIN 325 MG TAB PO SCH (12:18)
--- NOTE | 2016-08-22 13:51 | P.CNNES ---
History of Present Illness Consult date: 08/22/16 Reason for Consult: Patient admitted with weakness and acute stroke. History of Present Illness: This patient is a 70-year-old right-handed white male was initially usual state of health until early yesterday morning. Patient states he had awakened his usual at about 9 AM and was trying to get to the kitchen area when he noticed that he was very unsteady and weak in his legs. He was able to contact his girlfriend who came to assist him. Apparently he was having difficulty with weakness and unsteadiness in his gait. He was leaning to his left side. The girlfriend immediately called EMS who arrived at the home to assess him. He was felt to have some weakness and for this reason was transported to the emergency room at [facility]. He was seen in the ER by Dr. Godwin. His NIH stroke scale was noted to be 0. He was sent for computed tomography scan of the brain in the ER which came back positive for a left cerebellar infarct. It is unclear if this was acute versus subacute and it was felt the patient should be admitted for full stroke evaluation. He was not felt to be a TPA candidate as the onset of symptoms and the NIH findings were not consistent with acute stroke. Patient was noted to have some difficulty with his speech at home as well as in the ER. He was advised admission to the hospital for a full stroke evaluation. Patient states he has no previous history of TIA or stroke. He has not been taking any aspirin on any regular basis. According to the girlfriend about 2 months ago he did sustain a right hip fracture and from that time has been having difficulty with walking and gait imbalance. His major medical problem has been COPD for which she is under treatment. Patient states that she no family history of stroke. He is not on any specific medication for hypercholesterolemia. He states that his speech has improved but he does have dentures which may be contributing to some of his difficulties. The patient is now been admitted and neurology has been consulted for further evaluation and recommendations. Review of Systems Constitutional: Denies chills, Denies fever Eyes: denies blurred vision, denies pain Ears, nose, mouth and throat: Denies headache, Denies sore throat Cardiovascular: Denies chest pain, Denies shortness of breath Respiratory: Denies cough Gastrointestinal: Denies abdominal pain, Denies diarrhea, Denies nausea, Denies vomiting Musculoskeletal: Denies myalgias Integumentary: Denies pruritus, Denies rash Neurological: Reports change in speech, Reports gait dysfunction, Reports lack of coordination, Reports motor disturbance, Reports tingling, Denies numbness, Denies weakness Psychiatric: Denies anxiety, Denies depression Endocrine: Denies fatigue, Denies weight change Past Medical History Past Medical History: COPD, Osteoarthritis (OA) Additional Past Medical History / Comment(s): knees-arthritis History of Any Multi-Drug Resistant Organisms: None Reported Past Surgical History: Orthopedic Surgery Additional Past Surgical History / Comment(s): knee surg. Past Anesthesia/Blood Transfusion Reactions: No Reported Reaction Past Psychological History: No Psychological Hx Reported Smoking Status: Former smoker Past Alcohol Use History: Rare Past Drug Use History: Marijuana - Past Family History Mother Family Medical History: No Reported History Father Family Medical History: Renal Disease Brother(s) Family Medical History: Congestive Heart Failure (CHF) Sister(s) Family Medical History: Cancer Daughter(s) Family Medical History: No Reported History Medications and Allergies Home Medications Medication Instructions Recorded Confirmed Type Albuterol Inhaler [Ventolin Hfa 2 puff INHALATION RT-Q6H PRN 08/21/16 08/21/16 History Inhaler] HYDROcodone/APAP 5-325MG [[place] 1 tab PO Q6HR PRN 08/21/16 08/21/16 History 5-325] Allergies Allergy/AdvReac Type Severity Reaction Status Date / Time No Known Allergies Allergy Verified 08/21/16 22:11 Physical Examination - Vital Signs Vital Signs: Vital Signs Temp Pulse Pulse Resp BP BP BP 08/22/16 11:40 97.6 F 81 16 148/82 08/22/16 08:59 97.7 F 95 16 144/92 08/22/16 04:00 84 18 159/99 08/22/16 01:05 97.9 F 90 18 166/87 08/22/16 01:02 97.9 F 90 18 166/87 08/21/16 23:38 97.7 F 82 18 171/85 08/21/16 22:23 80 20 177/78 08/21/16 20:55 81 20 153/71 08/21/16 20:25 97.8 F 88 20 170/82 Pulse Ox 08/22/16 11:40 93 L 08/22/16 08:59 92 L 08/22/16 04:00 95 08/22/16 01:05 96 08/22/16 01:02 96 08/21/16 23:38 95 08/21/16 22:23 98 08/21/16 20:55 98 08/21/16 20:25 94 L Intake and Output 08/21/16 08/22/16 08/22/16 22:59 06:59 14:59 Intake Total 120 Output Total 300 450 Balance -180 -450 Intake: IV 120 Sodium Chloride 0.9% 1, 120 000 ml @ 20 mls/hr IV . Q24H [facility] Rx#:[id number] Output: Urine 300 450 Other: Voiding Method Urinal # Voids 1 1 Weight 136.078 kg 126 kg 126 kg Patient Weight 08/23/16 06:59 Weight 126 kg - Constitutional General appearance: average body habitus, cooperative - EENT EENT: PERRL, mucous membranes moist - Respiratory Respiratory: lungs clear, normal breath sounds - Cardiovascular Cardiovascular: regular rate, normal S1, normal S2 Extremities: no peripheral edema bilaterally - Gastrointestinal Gastrointestinal: normoactive bowel sounds - Integumentary Integumentary: normal - Neurologic Cranial nerve examination: PERRL, EOMI, VFF, V1/V2/V3 grossly intact, face symmetric, tongue midline, intact gag reflex, intact corneal reflex, normal palatal elevation Speech examination: intact Sensorimotor examination: intact Motor examination - right side: 4/5: biceps, triceps, wrist flexion, wrist extension, tile professional, hip flexors, knee extensors, dorsiflexion, toe extension (EHL) , plantarflexion Motor examination - left side: 4/5: biceps, triceps, wrist flexion, wrist extension, tile professional, hip flexors, knee extensors, dorsiflexion, toe extension (EHL) , plantarflexion Detailed sensory examination: intact Reflex and gait examination: intact Reflexes: 1+: ankle, bicep, knee, tricep Cerebellar examination: dysmetria - Musculoskeletal Musculoskeletal: no pain - Psychiatric Psychiatric: mood/affect appropriate, cooperative Results - Laboratory Findings CBC and BMP: 08/21/16 20:25 08/21/16 20:25 Abnormal Lab Findings: Abnormal Labs 08/21/16 08/21/16 08/21/16 20:25 20:25 22:26 Lymphocytes # 0.8 L Glucose 162 H Cholesterol LDL Cholesterol, Calc HDL Cholesterol Urine Protein Trace H Urine Glucose (UA) Trace H Urine Ketones 1+ H 08/22/16 05:53 Lymphocytes # Glucose Cholesterol 219 H LDL Cholesterol, Calc 151 H HDL Cholesterol 39 L Urine Protein Urine Glucose (UA) Urine Ketones Assessment and Plan (1) Cerebellar stroke syndrome Status: Acute Code(s): G46.4 - CEREBELLAR STROKE SYNDROME (2) COPD (chronic obstructive pulmonary disease) Status: Acute Code(s): J44.9 - CHRONIC OBSTRUCTIVE PULMONARY DISEASE, UNSPECIFIED (3) Hip fracture, right Status: Acute Code(s): S72.001A - FRACTURE OF UNSP PART OF NECK OF RIGHT FEMUR , INIT (4) Near syncope Status: Acute Code(s): R55 - SYNCOPE AND COLLAPSE Plan: This patient is a 70-year-old right-handed white male who was seen in the emergency room at the [facility] yesterday for symptoms of unsteady gait and weakness. Patient apparently woke up yesterday morning and was unable to ambulate due to unsteady gait and ataxia. He was leaning to his left side. He was brought in by EMS to the emergency room where he was evaluated by Dr. Godwin. Underwent a computed tomography scan of the brain which revealed evidence of a left cerebellar infarct. This was not appreciated on previous CAT scan that was done on 07/01/2016. Patient was admitted to hospital last it was felt he had a subacute infarct. His NIH stroke scale in the ER was 0. His neurological examination reveals dysmetria with the left finger nose testing. His computed tomography scan of the brain was reviewed and revealed evidence of an acute infarct in the left cerebellar hemisphere. We are recommending an MRI of the brain for further evaluation. Patient will be admitted for a complete stroke evaluation. We will check his lipid profile as well. He is to be maintained on aspirin daily for secondary stroke prevention. His overall prognosis at this time remains guarded. Time with Patient: Greater than 30
--- NOTE | 2016-08-22 17:40 | MR ---
MR brain without contrast HISTORY: Left cerebellar stroke Multiplanar multisequence imaging obtained through the brain. Fast brain protocol utilized Correlation CT brain 08/21/2016 Abnormal increased signal present on diffusion, inversion recovery and T2-weighted sequences along th e inferior left cerebellar hemisphere corresponding to abnormal findings on CT brain compatible with patient's history of left cerebellar infarct, there is no hemorrhage or hydrocephalus. Cortical atrop hy is present. Confluent areas of hyperintensity present in the periventricular and deep white matter on inversion recovery and T2-weighted sequences. Corpus callosum, pituitary, cervical medullary junc tion, cerebellopontine angles are within normal limits. There is no significant mass effect or midlin e shift. Orbits show symmetric appearance. IMPRESSION: Left inferior cerebellar subacute infarct. Age-related changes of atrophy and probable ch ronic small vessel ischemia.
--- NOTE | 2016-08-22 17:49 | HP ---
DATE OF ADMISSION: 08/21/2016 Chief complaint: Weakness. HISTORY OF PRESENT ILLNESS: Mr. Delgado is a 70-year-old man with a known history of chronic obstructive pulmonary disease and osteoarthritis, was brought in by EMS with complaints of weakness. Apparently weakness started yesterday morning when he woke. Patient woke up in the morning and felt very weak and tried to get into the kitchen area and he noticed that he has unsteady gait and weak legs. He was leaning to the left side. Patient also had nausea and vomiting and also had incontinence of urine and a bowel movement and bowels. He was very lethargic and pale as per paramedics and blood pressure was 178/100 and he was leaning onto the left side when sitting up in the chair. No other focal deficit noted. Patient had a CT of the brain that showed evidence of left cerebellar infarct. He was not felt to be TPA candidate as onset of symptoms and stroke scale is not consistent with acute cerebrovascular accident. Patient had right hip fracture about 2 months ago. Patient had previous history of smoking but not currently smoking. Patient also found to hyperlipidemia with LDL level in 140s. Otherwise, the patient denied any recent illnesses or sick contacts at home. No recent travel. The patient otherwise poor historian. REVIEW OF SYSTEMS: CONSTITUTIONAL: No fever. No chills. Patient does have weakness. CARDIOVASCULAR: No chest pain. No short of breath. No leg swelling. RESPIRATORY: No cough or sputum production. No short of breath. ABDOMEN: No nausea, vomiting, abdominal pain. No diarrhea. GENITOURINARY: No dysuria. No hematuria. NEUROLOGIC: Patient denied any numbness or tingling. Patient does have weakness of the left side and unsteady gait. PSYCHIATRIC: Negative. SKIN: Negative. MUSCULOSKELETAL: Negative. All other fourteen-point review of systems negative except as above. PAST MEDICAL HISTORY: COPD, osteoarthritis. PAST SURGICAL HISTORY: 1. Appendectomy. 2. Orthopedic surgery. No psychosocial history. SOCIAL HISTORY: Patient is a former smoker, quit several years ago. History of marijuana use in the past. Denied any drugs and denied any alcohol, drugs or IVDU. FAMILY HISTORY: Father had renal disease, brother had congestive heart failure. Sister had cancer. Home medication: 1. Albuterol inhaler. 2. [place] 5. ALLERGIES: No known known drug allergies. PHYSICAL EXAMINATION: A 70-year-old male lying in the bed. Awake, alert, oriented, x3. Appears to be in no apparent distress. VITALS: Blood pressure is 148/82, pulse is 81, respirations 16, temperature afebrile. Pulse ox is 93% on 2 liters nasal cannula. HEENT: Atraumatic, currently neck is supple. No JVD. CVS: S1, S2 heard. No murmurs, no gallop. LUNGS: Bilateral air entry is present. No wheezing. Decreased air entry basally. Nonlabored breathing. ABDOMEN: Soft, obese. Bowel sounds are present. NEON TUBE PUMPER: Awake, alert, oriented, x3. No focal deficits noted. The patient does have gait abnormality and asymmetry in finger-nose testing. SKIN: No rash or skin lesions. EXTREMITIES: Trace edema. Pulses palpable bilaterally. No clubbing or cyanosis. PSYCHIATRIC: Cooperative. LABORATORY DATA: WBC 7.8, hemoglobin 16.2, platelets 251, sodium 139, potassium 4.4. Chloride 104, bicarb 62, BUN 16, creatinine 0.79. Liver enzymes are not elevated. NT proBNP 328. LDL is 151, total cholesterol is 219. UA negative for infection. EKG normal sinus rhythm. CHEST X-RAY: No acute cardiopulmonary process. CT head interval development of inferior left cerebellar infarct which may be recent no associated or mass affect or shift is noted. Carotid duplex, no significant carotid artery stenosis. IMPRESSION: 1. Acute left inferior infarct/cerebrovascular accident with gait disturbance. 2. History of chronic obstructive pulmonary disease, not in exacerbation. 3. Osteoarthritis. 4. Morbid obesity with body mass index 41.0. 5. Recent right hip fracture. 6. Near syncope secondary to #1. 7. Deep venous thrombosis prophylaxis with heparin subcu. 8. Hyperlipidemia. DISCUSSION AND PLAN: 68-year-old male admitted to the hospital for acute left cerebellar infarct with gait disturbance and abnormal balance. Patient will be continued on telemetry and continue with the aspirin at this time. We will start Atorvastatin 40 mg p.o. at bedtime due to hyperlipidemia. Neurology is following the patient. Stroke up work-up, including CT head and carotid duplex was done and MRI was ordered as per neurology recommendations. Will continue the breathing treatments and follow up closely. Continue the PT, OT. Further recommendations based on clinical course. Blood pressure seems to be improving.
[2016-08-22] MEDS: ATORVASTATIN 40 MG TAB PO SCH (19:49)
[2016-08-23] MEDS: ASPIRIN 325 MG TAB PO SCH (08:27)
[2016-08-23] MEDS: SYMBICORT 160-4.5 MCG INHALER INHALATION SCH ×2 (09:33→19:08)
--- NOTE | 2016-08-23 13:27 | P.PN ---
Subjective This patient is a 70-year-old right-handed white male who was seen yesterday in neurology consultation for evaluation of unsteady gait and weakness. Patient was subsequent admitted to the hospital and did undergo a evaluation in the emergency room. His NIH stroke scale was 0. He was seen in the ER by Dr. Godwin. Computed tomography scan of the brain was done and revealed evidence of a left cerebellar infarct. Patient subsequent he underwent MRI of the brain for further evaluation. This MRI confirmed evidence of a left inferior cerebellar subacute infarct. No evidence of vascular ischemia or edema. Age- related atrophy and chronic small vessel ischemic changes were noted. Patient continues to do fairly well today he's been sitting up in the chair at bedside. He denies any headache today. He is taking one aspirin daily for secondary stroke prevention. His laboratory testing including a lipid profile was done yesterday. His total cholesterol is 219. He was started on atorvastatin 40 mg daily for treatment of the hyperlipidemia. He underwent a carotid Doppler ultrasound yesterday which revealed no significant carotid artery stenosis. Patient has been up and walking in the room. He still feels unsteady with his gait. We have recommended a physical therapy consultation for the patient. He may benefit from inpatient rehab. We will await further evaluation by PT. Patient otherwise seems to be doing fairly well. We will continue his complete stroke evaluation at this time. His overall prognosis remains guarded. Objective - Vital Signs Vital signs: Vital Signs Temp 98.8 F 08/23/16 08:00 Pulse 78 08/23/16 12:14 Resp 16 08/23/16 12:15 BP 155/84 08/23/16 12:14 Pulse Ox 95 08/23/16 12:14 Intake & Output 08/22/16 08/23/16 08/23/16 18:59 06:59 18:59 Intake Total 350 480 Output Total 850 450 Balance -500 -450 480 Weight 126 kg 122.5 kg Intake: IV 160 240 Sodium Chloride 0.9% 1, 160 240 000 ml @ 20 mls/hr IV . Q24H [facility]ONIA Rx#:[id number] Oral 190 240 Output: Urine 850 450 Other: Voiding Method Urinal Urinal Urinal # Voids 1 1 - Exam Physical examination: PHYSICAL EXAMINATION: Patient is resting comfortably in bed. VITAL SIGNS: Blood pressure is [155/84]. Heart rate is [78]. Respiration is [18] . Temperature is [98.8]. HEENT: Head is atraumatic, neck is supple, there were no carotid bruits. CHEST: Lungs are clear to auscultation and percussion. CARDIAC: S1, S2 normal rate and rhythm. There is no murmur. ABDOMEN: Soft and nontender. Bowel sounds are present. EXTREMITIES: There is no pedal edema. Peripheral pulses are present. Neurological examination: Patient's neurological examination is unchanged from yesterday. Patient still demonstrates evidence of dysmetria with the left finger-nose testing and heel-to -mayers testing on the left side. He ambulates very slowly with unsteady gait. - Labs CBC & Chem 7: 08/21/16 20:25 08/21/16 20:25 Assessment and Plan (1) Cerebellar stroke syndrome Status: Acute Code(s): G46.4 - CEREBELLAR STROKE SYNDROME (2) COPD (chronic obstructive pulmonary disease) Status: Acute Code(s): J44.9 - CHRONIC OBSTRUCTIVE PULMONARY DISEASE, UNSPECIFIED (3) Hip fracture, right Status: Acute Code(s): S72.001A - FRACTURE OF UNSP PART OF NECK OF RIGHT FEMUR , INIT (4) Near syncope Status: Acute Code(s): R55 - SYNCOPE AND COLLAPSE Plan: This patient is a 70-year-old right-handed white male who was seen in the emergency room at the [facility] yesterday for symptoms of unsteady gait and weakness. Patient apparently woke up yesterday morning and was unable to ambulate due to unsteady gait and ataxia. He was leaning to his left side. He was brought in by EMS to the emergency room where he was evaluated by Dr. Godwin. Underwent a computed tomography scan of the brain which revealed evidence of a left cerebellar infarct. This was not appreciated on previous CAT scan that was done on 07/01/2016. Patient was admitted to hospital last it was felt he had a subacute infarct. His NIH stroke scale in the ER was 0. His neurological examination reveals dysmetria with the left finger nose testing. His computed tomography scan of the brain was reviewed and revealed evidence of an acute infarct in the left cerebellar hemisphere. We are recommending an MRI of the brain for further evaluation. Patient completed MRI of the brain results which are noted above. MRI confirms a left inferior cerebellar subacute infarct. Patient will require physical therapy evaluation and treatment. He is to continue on aspirin daily for secondary stroke prevention. Patient will be admitted for a complete stroke evaluation. We will check his lipid profile as well. His total cholesterol was 219. He has been started on atorvastatin 40 mg daily. He is to be maintained on aspirin daily for secondary stroke prevention. His overall prognosis at this time remains guarded.
[2016-08-23] MEDS: ATORVASTATIN 40 MG TAB PO SCH (20:21)
[2016-08-24] MEDS: SODIUM CHLORIDE 0.9% 1,000 ML IV SCH ×2 (02:30→23:14)
[2016-08-24 06:25] LABS: Basophils % (A) 0 %; CHCM 32.3; Eosinophils # (A) 0.2 k/uL (0-0.7); Eosinophils % (A) 2 %; HCT 48.1 % (39.0-53.0); HGB 15.3 gm/dL (13.0-17.5); Luc # (Auto) 0.16; Luc % (Auto) 2; Lymphocytes # (A) 2.2 k/uL (1.0-4.8); Lymphocytes % (A) 26 %; MCH 28.6 pg (25.0-35.0); MCHC 31.7 g/dL (31.0-37.0); MCV 90.2 fL (80.0-100.0); Mean Platelet Volume 6.8; Monocytes # (A) 0.5 k/uL (0-1.0); Monocytes % (A) 6 %; Neutrophils # (A) 5.4 k/uL (1.3-7.7); Neutrophils % (A) 64 %; RBC 5.34 m/uL (4.30-5.90); RDW 14.2 % (11.5-15.5); WBC 8.6 k/uL (3.8-10.6); WBC (Perox) 8.48
[2016-08-24 06:35] LABS: Anion Gap 9 mmol/L; Blood Urea Nitrogen 18 mg/dL (9-20); Calcium 8.8 mg/dL (8.4-10.2); Carbon Dioxide 22 mmol/L (22-30); Chloride 107 mmol/L (98-107); Glucose 98 mg/dL (74-99); Non-African American GFR(MDRD) >60 (>60 ml/min/1.73 sqM); Potassium 4.2 mmol/L (3.5-5.1); Sodium 138 mmol/L (137-145)
[2016-08-24] MEDS: SYMBICORT 160-4.5 MCG INHALER INHALATION SCH ×2 (08:42→21:16)
[2016-08-24] MEDS ORDERED: ASPIRIN 325 MG TAB ONE (09:00)
--- NOTE | 2016-08-24 11:21 | PN ---
DATE OF SERVICE: 08/23/2016 Mr. Delgado is a 70-year-old man with a known history of COPD and osteoarthritis was brought to the hospital with complaints of weakness and unsteady gait and swaying to the left side. Patient had a CT of the brain showed evidence of left cerebellar infarct. The patient had subsequent MRI which showed left inferior cerebellar subacute infarct and age related chronic small vessel ischemia. Patient had a stroke work-up including carotid duplex was done, showed no evidence of stenosis. Otherwise, patient denied any new complaints today. Tolerating p.o. diet. Patient is undergoing physical therapy and stroke prophylaxis with aspirin. Hence he was discharged to rehab. REVIEW OF SYSTEMS: CONSTITUTIONAL: No fever. No chills. RESPIRATORY: No cough or sputum production. CARDIOVASCULAR: No chest pain or shortness of breath. ABDOMEN: No nausea or vomiting, abdominal pain. GENITOURINARY: Negative. ENDOCRINE: Negative. PSYCHIATRY: Negative. SKIN: Negative. All other 14 point review of systems negative except as above. CURRENT MEDICATIONS: Reviewed. PHYSICAL EXAMINATION: A 70-year-old male lying in the bed. Awake, alert, oriented x3. No focal deficits. EXTREMITIES: ( ). VITAL SIGNS: Blood pressure is 153/76, pulse is 75, respirations 16, temperature afebrile, pulse ox 97% on room air. HEENT: Atraumatic, normocephalic. Neck is supple. No JVD. CENTRAL NERVOUS SYSTEM: S1, S2 heard. No murmurs, no gallop. LUNGS: Bilateral air entry is present. No wheezing. No crackles. ABDOMEN: Soft, nontender. Bowel sounds present. CENTRAL NERVOUS SYSTEM: Awake, alert, oriented x3. No focal deficits. Patient does have gait imbalance as well as asymmetry in finger-nose testing. EXTREMITIES: No edema. Pulses palpable bilaterally. No clubbing or cyanosis. PSYCHIATRIC: Cooperative. LABORATORY DATA: Reviewed. IMPRESSION: 1. Acute/subacute left inferior cerebellar infarct with gait disturbance and swaying to the left side. 2. Hyperlipidemia. 3. Chronic obstructive pulmonary disease, not in exacerbation. 4. Osteoarthritis. 5. Morbid obesity with body mass index of 41. 6. Recent right hip fracture. 7. Near syncope secondary to #1. 8. Deep venous thrombosis prophylaxis with heparin subcu. DISCUSSION AND PLAN: Patient will be continued on aspirin and statins. Continue with the physical therapy. Neurology is on board. Anticipate discharge to rehab possibly on Thursday.
--- NOTE | 2016-08-24 12:20 | EEG ---
DATE OF SERVICE: 08/23/2016 INDICATIONS FOR EXAMINATION: This patient is a 70-year-old male being evaluated for acute cerebellar stroke. AGE: 70Y FINDINGS: A routine 21-channel awake digital EEG recording was accomplished utilizing the 10 to 20 international system with bipolar and referential montages. The background activity in the most alert resting state consists of a low to medium amplitude fairly well developed and well sustained 7 to 8 Hz activity over the posterior head regions. This posterior rhythm attenuates to eye opening. There is a small amount of low amplitude 18 to 20 Hz beta activity seen maximally over the anterior head regions. Muscle and movement artifact was observed on a few occasions during the tracing. Hyperventilation was not performed. Photic stimulation at flash frequencies of 2 to 30 Hz produced a minimal occipital driving response. No epileptiform discharges were seen. IMPRESSION: This EEG is within normal limits for the patient's age. The EEG failed to reveal any focal, lateralizing or epileptiform abnormalities. Clinical correlation is recommended.
--- NOTE | 2016-08-24 12:24 | P.PN ---
Subjective This patient is a 70-year-old right-handed white male who was seen yesterday in neurology consultation for evaluation of unsteady gait and weakness. Patient was subsequent admitted to the hospital and did undergo a evaluation in the emergency room. His NIH stroke scale was 0. He was seen in the ER by Dr. Godwin. Computed tomography scan of the brain was done and revealed evidence of a left cerebellar infarct. Patient subsequent he underwent MRI of the brain for further evaluation. This MRI confirmed evidence of a left inferior cerebellar subacute infarct. No evidence of vascular ischemia or edema. Age- related atrophy and chronic small vessel ischemic changes were noted. Patient continues to do fairly well today he's been sitting up in the chair at bedside. He denies any headache today. He is taking one aspirin daily for secondary stroke prevention. His laboratory testing including a lipid profile was done yesterday. His total cholesterol is 219. He was started on atorvastatin 40 mg daily for treatment of the hyperlipidemia. He underwent a carotid Doppler ultrasound yesterday which revealed no significant carotid artery stenosis. Patient has been up and walking in the room. He still feels unsteady with his gait. We have recommended a physical therapy consultation for the patient. He may benefit from inpatient rehab. We will await further evaluation by PT. Patient is being considered for transfer to inpatient rehab tomorrow. He is sitting up in the chair today and states he is noticing still some unsteadiness when he stands and ambulates. He may benefit from use of a walker once he is evaluated in the inpatient rehab unit. Patient otherwise seems to be doing fairly well. We will continue his complete stroke evaluation at this time. Patient is being considered for placement into rehab possibly tomorrow. His overall prognosis remains guarded. Objective - Vital Signs Vital signs: Vital Signs Temp 98.0 F 08/24/16 08:00 Pulse 94 08/24/16 08:00 Resp 18 08/24/16 08:00 BP 131/95 08/24/16 08:00 Pulse Ox 95 08/24/16 08:00 Intake & Output 08/23/16 08/24/16 08/24/16 18:59 06:59 18:59 Intake Total 1120 240 Output Total 600 425 300 Balance 520 -425 -60 Weight 133.5 kg Intake: IV 400 Sodium Chloride 0.9% 1, 400 000 ml @ 20 mls/hr IV . Q24H [facility]ONIA Rx#:[id number] Oral 720 240 Output: Urine 600 425 300 Other: Voiding Method Urinal Urinal Urinal # Voids 2 1 # Bowel Movements 0 1 - Exam Physical examination: PHYSICAL EXAMINATION: Patient is resting comfortably in bed. VITAL SIGNS: Blood pressure is [131/95]. Heart rate is [94]. Respiration is [18] . Temperature is [98.0]. HEENT: Head is atraumatic, neck is supple, there were no carotid bruits. CHEST: Lungs are clear to auscultation and percussion. CARDIAC: S1, S2 normal rate and rhythm. There is no murmur. ABDOMEN: Soft and nontender. Bowel sounds are present. EXTREMITIES: There is no pedal edema. Peripheral pulses are present. Neurological examination: Patient's neurological examination is unchanged from yesterday. Patient still demonstrates evidence of dysmetria with the left finger-nose testing and heel-to -mayers testing on the left side. He ambulates very slowly with unsteady gait. - Labs CBC & Chem 7: 08/24/16 05:22 08/24/16 05:22 Assessment and Plan (1) Cerebellar stroke syndrome Status: Acute Code(s): G46.4 - CEREBELLAR STROKE SYNDROME (2) COPD (chronic obstructive pulmonary disease) Status: Acute Code(s): J44.9 - CHRONIC OBSTRUCTIVE PULMONARY DISEASE, UNSPECIFIED (3) Hip fracture, right Status: Acute Code(s): S72.001A - FRACTURE OF UNSP PART OF NECK OF RIGHT FEMUR , INIT (4) Near syncope Status: Acute Code(s): R55 - SYNCOPE AND COLLAPSE Plan: This patient is a 70-year-old male who is being followed for recent left cerebellar stroke. Patient is been making slow progress and has been working with PT OT. He is being considered for inpatient rehab placement. His stroke workup thus far has been negative for any acute findings. His MRI did confirm evidence of a left cerebellar infarct. We would recommend he continue on Lipitor for treatment of his hyperlipidemia. He underwent routine EEG yesterday which was reviewed and reveals only mild slowing with no epileptiform discharges. We reviewed the results of the EEG today with the patient. He is being considered for transfer to inpatient rehab tomorrow and we would agree with this treatment plan. He may follow-up in the outpatient neurology clinic once he is discharged from rehab in 3-4 weeks. His overall prognosis at this time remains guarded.
[2016-08-24] MEDS: ASPIRIN 325 MG TAB PO SCH (16:59)
[2016-08-24] MEDS: ATORVASTATIN 40 MG TAB PO SCH (20:58)
[2016-08-25] MEDS: ASPIRIN 325 MG TAB PO SCH (08:42)
[2016-08-25] MEDS: SYMBICORT 160-4.5 MCG INHALER INHALATION SCH ×2 (09:00→21:06)
--- NOTE | 2016-08-25 10:18 | P.CONS ---
History of Present Illness - Chief Complaint Gait disturbance - History of Present Illness I had the opportunity see patient for inpatient rehab consultation with regard to gait disturbance. He was admitted to [facility] August 21 acute onset gait disturbance. Head CT demonstrated left cerebellar infarct. MRI demonstrated subacute left cerebral infarct as well as age-related change. Seen by Dr. [place] Turner for the stroke. Carotid duplex and chest x-rays negative. PT reports minimal assistance for gait 10 feet with hand-held assist and fatigues. OT and speech prescribed. Previous functional history as elicited from patient: 70-year-old right-handed white male who is single lives in his first-floor of 2 floor home alone. Retired. Describes independent with cooking, laundry, driving, standing shower and gait with standard cane. Dr. Larkin is regular doctor. Family history of mother with CHF and father were chronic kidney disease. Review of Systems Review of systems: ENT: Denies sneezes or discharge. Eyes: Denies discharge or photophobia. Cardiac: Denies chest pain or palpitation. Pulmonary: Denies cough or shortness of breath. Gastrointestinal: Denies nausea, emesis, constipation, diarrhea. Genitourinary: Denies discharge or frequency. Musculoskeletal: Denies muscle or bone aches. Neurologic: Mild left-sided weakness. Endocrine: Denies shakes or sweats. Oncology: Denies cancers. Dermatologic: Denies rash, itching, pruritus. ALLERGY/immunology: Denies sneezes, rashes. Past Medical History Past Medical History: COPD, Osteoarthritis (OA) Additional Past Medical History / Comment(s): knees-arthritis History of Any Multi-Drug Resistant Organisms: None Reported Past Surgical History: Orthopedic Surgery Additional Past Surgical History / Comment(s): knee surg. Past Anesthesia/Blood Transfusion Reactions: No Reported Reaction Past Psychological History: No Psychological Hx Reported Smoking Status: Former smoker Past Alcohol Use History: Rare Past Drug Use History: Marijuana - Past Family History Mother Family Medical History: No Reported History Father Family Medical History: Renal Disease Brother(s) Family Medical History: Congestive Heart Failure (CHF) Sister(s) Family Medical History: Cancer Daughter(s) Family Medical History: No Reported History Medications and Allergies Home Medications Medication Instructions Recorded Confirmed Type Albuterol Inhaler [Ventolin Hfa 2 puff INHALATION RT-Q6H PRN 08/21/16 08/21/16 History Inhaler] HYDROcodone/APAP 5-325MG [[place] 1 tab PO Q6HR PRN 08/21/16 08/21/16 History 5-325] Allergies Allergy/AdvReac Type Severity Reaction Status Date / Time No Known Allergies Allergy Verified 08/21/16 22:11 Physical Exam Vitals: Vital Signs Temp Pulse Resp BP BP Pulse Ox 08/25/16 08:00 97.0 F L 83 18 143/78 92 L 08/25/16 04:00 97.4 F L 73 20 141/74 93 L 08/25/16 00:00 97.7 F 75 20 136/72 95 08/24/16 20:00 97.7 F 75 20 145/76 95 08/24/16 16:00 97.2 F L 76 18 152/75 95 08/24/16 11:49 97.4 F L 78 18 134/74 95 Intake and Output 08/24/16 08/25/16 08/25/16 22:59 06:59 14:59 Intake Total 240 0 240 Output Total 325 150 Balance -85 -150 240 Intake: IV 0 0 Sodium Chloride 0.9% 1, 0 0 000 ml @ 20 mls/hr IV . Q24H [facility]ONIA Rx#:[id number] Oral 240 240 Output: Urine 325 150 Other: Voiding Method Urinal Urinal Urinal # Voids 2 1 Weight 133.9 kg Skin: Good color, texture, turgor. Obese. General: Medium build and comfortable appearance. Head: Normocephalic, atraumatic. Eyes: Symmetric. Pupils equal round. Ears: Symmetric. Hearing within normal limits. Mouth: Clear. Neck: Supple. Carotid without bruit. Cardiac: Regular rate and rhythm. Lungs: Clear anteriorly and posteriorly. Abdomen: Soft active nontender obese. Extremities: Normal tone. Neurological: Mental status: Alert, cooperative, pleasant. Cranial nerves: Symmetric facial tone and trapezius. Motor: Normal strength and isolation all 4 limbs. Mildly apraxic left hand and ankle, only. Sensation: Intact throughout. DTRs: Symmetric and equal throughout. Mobility: Sits and stands with minimal assistance. Results CBC & Chem 7: 08/24/16 05:22 08/24/16 05:22 CT Scan - head: report reviewed (Left cerebellar infarct.) MRI - head: report reviewed (Subacute left cerebellar infarct with age-related atrophy as well as.) Assessment and Plan (1) Cerebellar stroke syndrome Status: Acute Plan: Impression: 1. Gait disturbance. 2. Left cerebellar stroke with left-sided ataxia. 3. Right femoral fracture reported. 4. Morbid obese. 5. COPD. 6. Osteoarthritis. Comments and plan: At this time PT, OT, PHONE TECHNICIAN ongoing. Noted PT did work on gait and fact patient reports ambulating in the hallway today. Unsure of diagnosis of femoral fracture. Neurologic deficits appear to be minimal currently. Complicated however by patient's obesity and lives alone. We'll follow with you for possible inpatient rehab needs.
--- NOTE | 2016-08-25 10:49 | PN ---
DATE OF SERVICE: 08/24/2016 INTERVAL HISTORY: Mr. Delgado is a 70-year-old male with known history of COPD and osteoarthritis, was brought to the hospital with complaints of weakness and unsteady gait and swaying to the left side. Patient was found to have CT evidence of left cerebellar infarct, confirmed with left inferior cerebellar subacute infarct. Currently, patient does not have any slurred speech, no difficulty in swallowing, continued on aspirin at this time for stroke prophylaxis. Carotid duplex showed no significant stenosis. Otherwise, patient is currently being followed with PT, OT and anticipate transfer to rehab tomorrow. REVIEW OF SYSTEMS: No complaints of chest pain or short of breath, no nausea or vomiting. No acute overnight issues. Other review of systems negative except as above. CURRENT MEDICATIONS: Reviewed. PHYSICAL EXAMINATION: A 70-year-old male lying in bed comfortably; awake, alert and oriented x3. Appears to be in no apparent distress. VITALS: Blood pressure is 136/72, pulse is 75, respirations 20, temperature afebrile, pulse ox 94% on room air. HEENT: Atraumatic, normocephalic. Neck is supple. No JVD. CVS EXAM: S1, S2 heard. No murmurs, no gallop, no rub. LUNGS: Bilateral air entry is present. No wheezing, no crackles. ABDOMEN: Soft, nontender, bowel sounds present, obese. BEREAVEMENT COUNSELOR: Awake, alert, and oriented x3. No focal deficit. EXTREMITIES: No edema, pulses palpable bilaterally. No clubbing or cyanosis. PSYCHIATRIC: Cooperative. LABORATORY DATA: Reviewed. WBC is 8.6, hemoglobin is 15.3 and platelets 232. Sodium 138, potassium 4.2, chloride 107, bicarb is 22, BUN 18, creatinine 1.0, calcium 8.8, LDL is 151. IMPRESSION: 1. Acute/subacute left inferior cerebellar infarct with gait disturbance and swaying to the left side. 2. Hyperlipidemia. 3. Chronic obstructive pulmonary disease, not in exacerbation. 4. Osteoarthritis. 5. Moderate obesity with body mass index of 41. 6. Recent right hip fracture. 7. Near syncope secondary to #1. 8. Deep venous thrombosis prophylaxis with heparin subcutaneous. DISCUSSION AND PLAN: Patient will be continued on aspirin and statins for prophylaxis. Continue with the PT, OT. Neurology on board. Anticipate discharge to rehab a possibly Thursday. ( ).
[2016-08-25] MEDS: ATORVASTATIN 40 MG TAB PO SCH (21:04)
--- NOTE | 2016-08-25 21:16 | P.PN ---
Subjective This patient is a 70-year-old right-handed white male who was seen yesterday in neurology consultation for evaluation of unsteady gait and weakness. Patient was subsequent admitted to the hospital and did undergo a evaluation in the emergency room. His NIH stroke scale was 0. He was seen in the ER by Dr. Godwin. Computed tomography scan of the brain was done and revealed evidence of a left cerebellar infarct. Patient subsequent he underwent MRI of the brain for further evaluation. This MRI confirmed evidence of a left inferior cerebellar subacute infarct. No evidence of vascular ischemia or edema. Age- related atrophy and chronic small vessel ischemic changes were noted. Patient continues to do fairly well today he's been sitting up in the chair at bedside. He denies any headache today. He is taking one aspirin daily for secondary stroke prevention. His laboratory testing including a lipid profile was done yesterday. His total cholesterol is 219. He was started on atorvastatin 40 mg daily for treatment of the hyperlipidemia. He underwent a carotid Doppler ultrasound yesterday which revealed no significant carotid artery stenosis. Patient has been up and walking in the room. He still feels unsteady with his gait. We have recommended a physical therapy consultation for the patient. He may benefit from inpatient rehab. We will await further evaluation by PT. Patient is being considered for transfer to inpatient rehab tomorrow. Patient was seen by Dr. Magaña today. We will await their final recommendation regarding inpatient rehab. He is sitting up in the chair today and states he is noticing still some unsteadiness when he stands and ambulates. He may benefit from use of a walker once he is evaluated in the inpatient rehab unit. Patient states he was able to walk in the hallway today with the use of the walker and did quite well. Patient otherwise seems to be doing fairly well. We will continue his complete stroke evaluation at this time. Patient is being considered for placement into rehab possibly tomorrow. His overall prognosis remains guarded. Objective - Vital Signs Vital signs: Vital Signs Temp 97.6 F 08/25/16 16:00 Pulse 75 08/25/16 16:00 Resp 18 08/25/16 16:00 BP 147/82 08/25/16 16:00 Pulse Ox 95 08/25/16 16:00 Intake & Output 08/25/16 08/25/16 08/26/16 06:59 18:59 06:59 Intake Total 0 840 Output Total 475 200 Balance -475 640 Weight 133.9 kg Intake: IV 0 Sodium Chloride 0.9% 1, 0 000 ml @ 20 mls/hr IV . Q24H [facility] Rx#:[id number] Oral 840 Output: Urine 475 200 Other: Voiding Method Urinal Urinal # Voids 1 - Exam Physical examination: PHYSICAL EXAMINATION: Patient is resting comfortably in bed. VITAL SIGNS: Blood pressure is [147/82]. Heart rate is [75]. Respiration is [18] . Temperature is [97.7]. HEENT: Head is atraumatic, neck is supple, there were no carotid bruits. CHEST: Lungs are clear to auscultation and percussion. CARDIAC: S1, S2 normal rate and rhythm. There is no murmur. ABDOMEN: Soft and nontender. Bowel sounds are present. EXTREMITIES: There is no pedal edema. Peripheral pulses are present. Neurological examination: Patient's neurological examination is unchanged from yesterday. Patient still demonstrates evidence of dysmetria with the left finger-nose testing and heel-to -mayers testing on the left side. He ambulates very slowly with unsteady gait. - Labs CBC & Chem 7: 08/24/16 05:22 08/24/16 05:22 Assessment and Plan (1) Cerebellar stroke syndrome Status: Acute Code(s): G46.4 - CEREBELLAR STROKE SYNDROME (2) COPD (chronic obstructive pulmonary disease) Status: Acute Code(s): J44.9 - CHRONIC OBSTRUCTIVE PULMONARY DISEASE, UNSPECIFIED (3) Hip fracture, right Status: Acute Code(s): S72.001A - FRACTURE OF UNSP PART OF NECK OF RIGHT FEMUR , INIT (4) Near syncope Status: Acute Code(s): R55 - SYNCOPE AND COLLAPSE Plan: This patient is a 70-year-old male who is being followed for recent left cerebellar stroke. Patient is been making slow progress and has been working with PT OT. He is being considered for inpatient rehab placement. His stroke workup thus far has been negative for any acute findings. His MRI did confirm evidence of a left cerebellar infarct. We would recommend he continue on Lipitor for treatment of his hyperlipidemia. He underwent routine EEG yesterday which was reviewed and reveals only mild slowing with no epileptiform discharges. We reviewed the results of the EEG today with the patient. He is being considered for transfer to inpatient rehab tomorrow and we would agree with this treatment plan. Patient was seen today by Dr. Magaña. He is being considered for inpatient rehab placement. He was able to ambulate today quite well with the use of his walker. He may follow-up in the outpatient neurology clinic once he is discharged from rehab in 3-4 weeks. His overall prognosis at this time remains guarded.
[2016-08-26] MEDS: SODIUM CHLORIDE 0.9% 1,000 ML IV SCH (00:48)
[2016-08-26] MEDS: SYMBICORT 160-4.5 MCG INHALER INHALATION SCH (07:51)
[2016-08-26] MEDS: ASPIRIN 325 MG TAB PO SCH (08:58)
[2016-08-26 09:30] VITALS: RESP 18
[2016-08-26 15:41] VITALS: BP 131/70; PULSE 78; TEMP 97.1
--- NOTE | 2016-08-26 23:45 | DS ---
DATE OF ADMISSION: 08/21/2016 DATE OF DISCHARGE: 08/26/2016 DISCHARGE DIAGNOSES: 1. Subacute left inferior cerebellar infarct with gait disturbance and swaying to the left side. 2. Hyperlipidemia. 3. Chronic obstructive pulmonary disease, not in exacerbation. 4. Osteoarthritis. 5. Morbid obesity with a body mass index of 41. 6. Recent right hip fracture. 7. Near-syncope secondary to number 1. 8. Deep venous thrombosis prophylaxis with subcutaneous heparin. HOSPITAL COURSE: Mr. Delgado is a 70-year-old male with a known history of COPD and osteoarthritis. He was brought to the hospital with complaints of weakness and unsteady gait and swaying to the left side. Patient was found to have CT evidence of left cerebellar infarct which was confirmed by MRI which did indicate left inferior cerebellar subacute infarct. The patient had stroke workup, including carotid duplex and EEG, which was an essentially negative workup. The patient was seen by Neurology while in the hospital. He was seen by ( ). Patient otherwise participated in physical therapy and is being discharged to rehabilitation. The patient was found to have hyperlipidemia and was started on atorvastatin. The patient will be continued on aspirin as well. Currently patient denies any complaints of chest pain or shortness of breath. No acute overnight issues. The patient will be discharged to rehab in stable condition. DISCHARGE PHYSICAL EXAMINATION: [id number]-old male lying in the bed comfortably. Awake, alert, oriented x3. No apparent distress. VITALS: Blood pressure 152/97, pulse 79, respiration 18, temperature afebrile, pulse ox 97% on room air. LAB DATA: Reviewed. Sodium 138, potassium 4.2, chloride 107, bicarb 72. BUN 18, creatinine 1.0. WBC 8.6, hemoglobin 15.3, platelets 232. MCV 90.2. RDW 14.2. LDL 151. UA negative. Discharge physical examination done. Discharge medications include: 1. Xanax 0.5 mg p.o. daily p.r.n. for anxiety. 2. Symbicort 2 puffs b.i.d. 3. Albuterol inhaler 2 puffs q.6 hourly p.r.n. for shortness of breath. 4. [place] 5/325 one tablet p.o. q.6 hourly p.r.n. for pain. 5. Aspirin 325 mg p.o. daily. 6. Atorvastatin 40 mg p.o. at bedtime. This patient will be discharged to rehab in stable condition. Activity as tolerated. Heart-healthy diet. Follow with Dr. Oskar Larkin in one week. [facility]
== END 2016-08-26 17:02 | DRG 65 ==
LOC: EC 20:17 → 6SEL 23:50
PROVIDERS: ADMIT Internal Medicine; ATTEND Internal Medicine
DX: I63.9 Cerebral infarction, unspecified (principal); Z68.41 Body mass index [BMI] 40.0-44.9, adult; J44.9 Chronic obstructive pulmonary disease, unspecified; E66.01 Morbid (severe) obesity due to excess calories; R26.0 Ataxic gait; R29.700 NIHSS score 0; M19.91 Primary osteoarthritis, unspecified site; G46.4 Cerebellar stroke syndrome; F12.90 Cannabis use, unspecified, uncomplicated; R32 Unspecified urinary incontinence; E78.5 Hyperlipidemia, unspecified; S72.001D Fracture of unspecified part of neck of right femur, subsequent encounter for closed fracture with routine healing; Z87.891 Personal history of nicotine dependence; Z79.51 Long term (current) use of inhaled steroids; Z79.899 Other long term (current) drug therapy
CPT/HCPCS: 36415; 70450; 70551; 71020; 80048; 80053; 80061; 81003; 82150; 82550; 82553; 83690; 83735; 83880; 84484; 85025; 85610; 85730; 93005; 93880; 94640; 95816; 96360; 99285

== ENCOUNTER 2017-01-14 10:58 | Day surgery (SDC) | payer MEDICARE, OTHER ==
[2017-01-12 10:19] VITALS: BMI 44.3
[2017-01-14] MEDS ORDERED: SODIUM CHLORIDE 0.9% 500 ML IV ONE (11:25)
[2017-01-14] MEDS ORDERED: MIDAZOLAM 2 MG/2 ML VIAL ONE (12:01)
[2017-01-14] MEDS ORDERED: fentaNYL (PF) 50 MCG/ML 2 ML AMP ONE (12:02)
[2017-01-14] MEDS ORDERED: fentaNYL (PF) 50 MCG/ML 2 ML AMP IV ONE (12:23)
[2017-01-14] MEDS ORDERED: BENZOCAINE SPRAY 1 CAN MUCOUS MEM ONE (12:24)
[2017-01-14] MEDS ORDERED: MIDAZOLAM 2 MG/2 ML VIAL IV ONE ×3 (12:24→12:30)
[2017-01-14 13:09] VITALS: RESP 22
[2017-01-14] MEDS ORDERED: SODIUM CHLORIDE 0.9% 1,000 ML IV SCH (13:15)
--- NOTE | 2017-01-14 13:24 | ECHOT ---
TRANSESOPHAGEAL ECHOCARDIOGRAM Mr. Delgado was advised transesophageal echocardiogram to rule out any cardiac source of emboli. The patient was given intravenous sedation with fentanyl and Versed and transesophageal echocardiogram was performed without any complications. FINDINGS: Left ventricular chamber is normal in size with normal left ventricular systolic function. Aortic valve is mildly thickened. Mitral and tricuspid valve morphology is normal. There is a mild mitral regurgitation noted. There is no evidence of any thrombus in left atrium or atrial appendage. Interatrial septum is intact. There is no evidence of any PFO by saline contrast study. Descending thoracic aorta shows minimal atherosclerotic abnormality. FINAL IMPRESSION: 1. There is no evidence of thrombus in left atrium or left atrial appendage. 2. Left ventricular systolic function is normal. 3. Aortic mitral and tricuspid valve morphology is normal. 4. Interatrial septum is intact. 5. There is no evidence of PFO by saline contrast study. MMODL / IJN: [id number] /
[2017-01-14 14:29] VITALS: BP 146/82; PULSE 76
== END 2017-01-14 14:05 | disposition home or self-care (01) ==
LOC: CATHCVL 10:58
PROVIDERS: ATTEND Internal Medicine Cardiovascular Disease
DX: Z86.73 Personal history of transient ischemic attack (TIA), and cerebral infarction without residual deficits (principal); E78.2 Mixed hyperlipidemia; J44.9 Chronic obstructive pulmonary disease, unspecified; Z82.49 Family history of ischemic heart disease and other diseases of the circulatory system; Z87.891 Personal history of nicotine dependence; Z79.82 Long term (current) use of aspirin; Z79.51 Long term (current) use of inhaled steroids; Z79.899 Other long term (current) drug therapy
CPT/HCPCS: 93312; 93320; 93325; J2250; J3010

== ENCOUNTER → 2017-09-10 | Outpatient (CLI) | payer MEDICARE, OTHER ==
[2017-09-10 12:57] LABS: HCT 45.7 % (39.0-53.0); HGB 14.5 gm/dL (13.0-17.5); MCH 27.9 pg (25.0-35.0); MCHC 31.8 g/dL (31.0-37.0); MCV 87.8 fL (80.0-100.0); Mean Platelet Volume 7.6; Platelet Count 226 k/uL (150-450); RDW 14.7 % (11.5-15.5); WBC 6.9 k/uL (3.8-10.6)
[2017-09-10 13:10] LABS: Albumin 3.9 g/dL (3.5-5.0); Calcium 8.9 mg/dL (8.4-10.2); Potassium 4.8 mmol/L (3.5-5.1); Total Bilirubin 0.4 mg/dL (0.2-1.3); Total Protein 6.8 g/dL (6.3-8.2)
[2017-09-10 13:12] LABS: Prothrombin Time 9.8 sec (9.0-12.0)
[2017-09-10 13:18] LABS: Appearance,Urine Clear (Clear); Bilirubin,Urine Negative (Negative); Blood,Urine Negative (Negative); Color,Urine Yellow; Glucose,Urine (UA) Negative (Negative); Ketones,Urine Negative (Negative); Leukocyte Esterase,Urine Negative (Negative); Nitrite,Urine Negative (Negative); Protein,Urine Negative (Negative); Specific Gravity,Urine 1.015 (1.001-1.035); Urobilinogen,Urine <2.0 mg/dL (<2.0)
== END | disposition home or self-care (01) ==
LOC: LABPAT 12:06
PROVIDERS: ATTEND Orthopaedic Surgery
DX: Z01.812 Encounter for preprocedural laboratory examination (principal); Z79.01 Long term (current) use of anticoagulants; Z51.81 Encounter for therapeutic drug level monitoring; Z01.818 Encounter for other preprocedural examination
CPT/HCPCS: 36415; 80053; 81003; 85027; 85610; 85730; 87070; 93005

== ENCOUNTER → 2017-09-23 | Outpatient (CLI) | payer MEDICARE, OTHER ==
--- NOTE | 2017-09-23 11:42 | XR ---
EXAMINATION TYPE: XR chest 2V DATE OF EXAM: 09/23/2017 COMPARISON: 08/21/2016 INDICATION: COPD, preop surgery evaluation TECHNIQUE: Frontal and lateral views of the chest are obtained. FINDINGS: The heart size is normal. The pulmonary vasculature is normal. The lungs are clear. There is some mild hyperinflation present. IMPRESSION: 1. No acute pulmonary process.
== END | disposition home or self-care (01) ==
LOC: RADXRMAIN 11:29
PROVIDERS: ATTEND Family Medicine
DX: Z01.818 Encounter for other preprocedural examination (principal); Z87.09 Personal history of other diseases of the respiratory system
CPT/HCPCS: 71046

== ENCOUNTER → 2018-07-30 | Outpatient (CLI) | payer MEDICARE, OTHER ==
--- NOTE | 2018-07-30 12:49 | CT ---
EXAMINATION TYPE: CT foot LT wo con DATE OF EXAM: 07/30/2018 COMPARISON: None HISTORY: Left heel fracture CT DLP: 313.3 mGycm Automated exposure control for dose reduction was used. FINDINGS: Multiple axial sections were obtained from the distal tibia to the bottom of the foot with no contras t. There is a nondisplaced fracture of the body of the calcaneus in the coronal plane extending to the s ubtalar joint and to the plantar calcaneus. There is small plantar calcaneal spur. There is moderate Achilles calcaneal spur. Subtalar joint is anatomic. There is some spurring at the ankle joint involving anterior malleolus. Ankle mortise is anatomic. Th e talus appears intact. Distal fibula is intact. There is calcification at the distal fibula and medi al malleolus consistent with old ligamentous injury. There is 4 mm degenerative cyst formation in the medial dome of the talus. There is subcutaneous edema and soft tissue swelling around the hindfoot. Metatarsals are intact. The toes appear intact. IMPRESSION: NONDISPLACED CALCANEUS FRACTURE. ANKLE JOINT OSTEOARTHRITIS. CALCANEAL SPURRING.
== END | disposition home or self-care (01) ==
LOC: RADCTMAIN 11:45
PROVIDERS: ATTEND Orthopaedic Surgery
DX: S92.002A Unspecified fracture of left calcaneus, initial encounter for closed fracture (principal); M19.072 Primary osteoarthritis, left ankle and foot

== ENCOUNTER → 2018-12-01 | Outpatient (CLI) | payer MEDICARE, OTHER ==
--- NOTE | 2018-12-01 14:08 | CT ---
EXAMINATION TYPE: CT chest wo con DATE OF EXAM: 12/01/2018 COMPARISON: NONE HISTORY: pulmonary nodules per order CT DLP: 800 mGycm. Automated Exposure Control for Dose Reduction was Utilized. TECHNIQUE: CT scan of the thorax is performed without IV contrast. FINDINGS: LUNGS: Mild peripheral reticulation and fibrosis is seen bilaterally. There is additional patchy or l inear scarring or atelectasis in both bases. There is 5 mm anterior inferior right upper lobe nodule image 21. No additional definitive greater than 4 mm nodules. No pleural effusion or pneumothorax. MEDIASTINUM: Lack of IV contrast is noted to limit evaluation for mediastinal and especially hilar a denopathy. There are no definitive greater than 1 cm hilar or mediastinal lymph nodes. No cardiomeg dominic or pericardial effusion is seen. Moderate coronary artery calcification is present. Moderate conc entric wall thickening mid to distal esophagus. Debris-filled stomach. OTHER: Fairly severe multilevel spurring in the spine. Cholecystectomy clips are redemonstrated. Occa sional colonic diverticula. IMPRESSION: 1. There is 5 mm anterior-inferior right upper lobe nodule. Correlate clinically and/or with outside studies to determine follow-up. 2. Moderate concentric wall thickening mid to distal esophagus could reflect esophagitis or product o f reflux. Correlate clinically.
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
== END | disposition home or self-care (01) ==
LOC: RADCTMAIN 12:31
PROVIDERS: ATTEND Family Medicine
DX: R91.8 Other nonspecific abnormal finding of lung field (principal); G31.1 Senile degeneration of brain, not elsewhere classified; Z87.828 Personal history of other (healed) physical injury and trauma
CPT/HCPCS: 70551; 71250

== ENCOUNTER → 2018-12-08 | Outpatient (CLI) | payer MEDICARE, OTHER ==
--- NOTE | 2018-12-08 15:47 | US ---
EXAMINATION TYPE: US kidneys/renal and bladder DATE OF EXAM: 12/08/2018 COMPARISON: NONE CLINICAL HISTORY: R31.9 Hematuria. Hematuria. Exam limitations due to body habitus. 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 Bladder: Anechoic Bilateral Jets seen: No There is no evidence for hydronephrosis at this point in time. No nephrolithiasis is seen. No suspi cious renal masses are identified. The urinary bladder is anechoic. IMPRESSION: No hydronephrosis nor nephrolithiasis. Urinary bladder is anechoic and grossly unremarkab le on ultrasound.
== END | disposition home or self-care (01) ==
LOC: RADUSWWP 14:59
PROVIDERS: ATTEND Urology
DX: R31.9 Hematuria, unspecified (principal)
CPT/HCPCS: 76770

== ENCOUNTER 2019-02-20 11:17 | Emergency (ER) | payer MEDICARE, OTHER ==
[2019-02-20 11:24] VITALS: BP 128/82; PULSE 99; RESP 20; TEMP 97.8
[2019-02-20] MEDS ORDERED: HYDROmorphone 0.5 MG/0.5 ML SYRINGE IM STA (12:02)
--- NOTE | 2019-02-20 12:30 | ED ---
Upper Extremity HPI - General Chief Complaint: Extremity Injury, Upper Stated Complaint: right arm pain Time Seen by Provider: 02/20/19 11:19 Source: patient, RN notes reviewed, old records reviewed Mode of arrival: wheelchair Limitations: physical limitation - History of Present Illness Initial Comments: this is a 73-year-old male here for evaluation of right elbow pain. patient has significant right elbowal pain and unable to straighten his right elbow Y states patient fools her own sleep and may have had an injury during that time. Patient currently and we'll choose for the most part not Raquel complaining of right elbow pain. Denying any other injury or complaints symptoms 3 days swelling is worsening and range of motion of right elbow has worsened MD Complaint: Injury to:: right, elbow -: days(s) Other Extremity Injury: Elbow: Right Other Injuries: none Handedness: right Place: home Severity scale (1-10): 8 Improves With: none Worsens With: none Context: direct blow Associated Symptoms: denies other symptoms - Related Data Home Medications Medication Instructions Recorded Confirmed Albuterol Inhaler [Ventolin Hfa 2 puff INHALATION RT-Q6H PRN 08/21/16 09/24/17 Inhaler] Albuterol Updraft-Unknown Dose 1 dose INHALATION DIRECTED PRN 09/24/17 Cholecalciferol (Vitamin D3) 2,000 unit PO DAILY 09/24/17 [Vitamin D3] Donepezil HCl [Aricept] 10 mg PO QAM 09/24/17 Memantine [Namenda] 10 mg PO BID 09/24/17 Tamsulosin HCl [Flomax] 0.4 mg PO BID 09/24/17 Previous Rx's Medication Instructions Recorded Budesonide-Formot 160-4.5 Mcg 2 puff INHALATION RT-BID puff 07/04/16 [Symbicort 160-4.5 Mcg Inhaler] Aspirin 325 mg PO DAILY #30 tab 08/26/16 Allergies Allergy/AdvReac Type Severity Reaction Status Date / Time No Known Allergies Allergy Verified 02/20/19 11:24 Review of Systems ROS Statement: Those systems with pertinent positive or pertinent negative responses have been documented in the HPI. ROS Other: All systems not noted in ROS Statement are negative. Past Medical History Past Medical History: COPD, CVA/TIA, Osteoarthritis (OA) Additional Past Medical History / Comment(s): knees-arthritis, mini stroke last June. History of Any Multi-Drug Resistant Organisms: None Reported Past Surgical History: Cholecystectomy Additional Past Surgical History / Comment(s): knee surg. Past Anesthesia/Blood Transfusion Reactions: No Reported Reaction Past Psychological History: No Psychological Hx Reported Smoking Status: Former smoker Past Alcohol Use History: None Reported Past Drug Use History: None Reported - Past Family History Mother Family Medical History: No Reported History Father Family Medical History: Renal Disease Brother(s) Family Medical History: Congestive Heart Failure (CHF) Sister(s) Family Medical History: Cancer Daughter(s) Family Medical History: No Reported History General Exam - General Exam Comments Initial Comments: decreased range of motion of right elbow with tenderness Limitations: physical limitation General appearance: alert, in no apparent distress Head exam: Present: atraumatic, normocephalic, normal inspection Eye exam: Present: normal appearance, PERRL, EOMI. Absent: scleral icterus, conjunctival injection, periorbital swelling ENT exam: Present: normal exam, mucous membranes moist Neck exam: Present: normal inspection. Absent: tenderness, meningismus, lymphadenopathy Respiratory exam: Present: normal lung sounds bilaterally. Absent: respiratory distress, wheezes, rales, rhonchi, stridor Cardiovascular Exam: Present: regular rate, normal rhythm, normal heart sounds. Absent: systolic murmur, diastolic murmur, rubs, gallop, clicks GI/Abdominal exam: Present: soft, normal bowel sounds. Absent: distended, tenderness, guarding, rebound, rigid Extremities exam: Present: normal inspection, full ROM, normal capillary refill. Absent: tenderness, pedal edema, joint swelling, calf tenderness Back exam: Present: normal inspection Neurological exam: Present: alert, oriented X3, CN II-XII intact Psychiatric exam: Present: normal affect, normal mood Skin exam: Present: warm, dry, intact, normal color. Absent: rash Course Vital Signs 02/20/19 11:20 Temperature 97.8 F Pulse Rate 99 Respiratory 20 Rate Blood Pressure 128/82 O2 Sat by Pulse 95 Oximetry Medical Decision Making - Medical Decision Making 73 male who is here in ER with likely radial head fracture, patient is splinted here in the ER will be discharged home - Radiology Data Radiology results: report reviewed (ultrasound right upper x-rays negative for DVT x-ray right elbow is positive for likely radial head fracture), image reviewed Disposition Clinical Impression: Elbow fracture, right, Fall, Radial head fracture Disposition: HOME SELF-CARE Condition: Good Instructions (If sedation given, give patient instructions): Arm Fracture in Adults (ED) Is patient prescribed a controlled substance at d/c from ED?: No Referrals: Janusz Hickey MD [STAFF PHYSICIAN] - 1-2 days
--- NOTE | 2019-02-20 12:54 | US ---
EXAMINATION TYPE: US venous doppler duplex UE RT DATE OF EXAM: 02/20/2019 COMPARISON: NONE CLINICAL HISTORY: pain. SIDE PERFORMED: Right Right Arm: Negative for DVT Morbidly obese patient, technically difficult study. IMPRESSION: THIS EXAMINATION IS NEGATIVE FOR DVT IN THE RIGHT ARM.
--- NOTE | 2019-02-20 13:54 | XR ---
EXAMINATION TYPE: XR elbow complete RT , 4 VIEWS DATE OF EXAM ORDERED: 02/20/2019 HISTORY: pain. COMPARISON: None. FINDINGS: There are degenerative changes within the elbow joint. There is a small olecranon spur. Th ere is a lucency through the radial head in multiple projections. I cannot exclude a joint effusion. IMPRESSION: MILDLY SUSPICIOUS FOR RADIAL HEAD FRACTURE. IMMOBILIZATION AND REPEAT EXAMINATION IN 10-14 DAYS WOULD BE SUGGESTED.
[2019-02-20] MEDS ORDERED: ACET/COD 300 MG/30 MG STARTER PACK 6 TAB BTL PO STA (14:15)
--- NOTE | 2019-02-23 04:18 | CDI ---
Dear Vince Evans DO: Please do addendum type of the splint applied. Thank you, Pao Rodriguez, Masonry Teacher. If you have any questions, please contact [employer] at [phone]. mtdD
--- NOTE | 2019-03-07 17:32 | ED ---
Medical Decision Making - Medical Decision Making This is documentation regarding splint application 73 male ER for evaluation of left elbow injury and pain, patient does have a radial head fracture. Patient is put in a posterior mold splint with sling. Patient feeling comfortable can be discharged home Disposition Clinical Impression: Elbow fracture, right, Fall, Radial head fracture Disposition: HOME SELF-CARE Condition: Good Instructions (If sedation given, give patient instructions): Arm Fracture in Adults (ED) Is patient prescribed a controlled substance at d/c from ED?: No Referrals: Janusz Hickey MD [STAFF PHYSICIAN] - 1-2 days Procedures - Orthopedic Splinting/Casting Injury #1 Side: right Upper Extremity Injury Location: elbow Upper Extremity Immobilizer: posterior splint
== END 2019-02-20 14:42 | disposition home or self-care (01) ==
LOC: EC 11:17
DX: S52.121A Displaced fracture of head of right radius, initial encounter for closed fracture (principal); J44.9 Chronic obstructive pulmonary disease, unspecified; Z87.891 Personal history of nicotine dependence; Z79.899 Other long term (current) drug therapy; X58.XXXA Exposure to other specified factors, initial encounter; Y92.009 Unspecified place in unspecified non-institutional (private) residence as the place of occurrence of the external cause; M79.601 Pain in right arm
CPT/HCPCS: 99284 ×2; 29105 ×2; 96372 ×2; 73080; 93971; J1170

== ENCOUNTER 2022-03-15 13:09 | Inpatient (IN) | payer MEDICARE, OTHER ==
--- NOTE | 2022-03-15 13:44 | ED ---
General Adult HPI - General Chief complaint: Weakness Stated complaint: AMS Time Seen by Provider: 03/15/22 13:15 Source: EMS Mode of arrival: EMS Limitations: altered mental status - History of Present Illness Initial comments: Dictation was produced using [employer] dictation software. please excuse any grammatical, word or spelling errors. Chief Complaint: 76-year-old male brought in by significant other for altered mental status History of Present Illness: Patient is 68-year-old male who has past medical history of COPD, stroke and early onset dementia. He is brought in by who provides history of present illness. at the bedside reports that since last night patient has been having outbursts as if he was in pain. She also notes that when he did fall asleep that his oxygen levels with decrease to the 80s. Patient has history of COPD and stroke. Patient does not use supplemental oxygen at home. Patient unable to write history present illness at this time due to baseline mental health. at the bedside reports that she has a visiting physician is I come to the house. Patient normally is unwilling to l eave the house for evaluation. This time he agreed. The ROS documented in this emergency department record has been reviewed and confirmed by me. Those systems with pertinent positive or negative responses have been documented in the HPI. All other systems are other negative and/or noncontributory. PHYSICAL EXAM: General Impression: Alert and oriented, not in acute distress HEENT: Normocephalic atraumatic, extra-ocular movements intact, pupils equal and reactive to light bilaterally, mucous membranes moist. Cardiovascular: Heart regular rate and rhythm Chest: no retractions, no tachypnea Abdomen: abdomen soft, non-tender, non-distended, no organomegaly Musculoskeletal: Pulses present and equal in all extremities, no peripheral edema Motor: no focal deficits noted Neurological: CN II-XII grossly intact, no focal motor or sensory deficits noted Skin: Intact with no visualized rashes Psych: Normal affect and mood ED course: 76-year-old male presents to the emergency department for altered mental status. Patient is well-appearing no acute distress. Vital signs upon arrival are within acceptable limits. Nursing notes and chart review was performed My EKG interpretation: Ventricular rate 70, sinus rhythm, HI interval 152, QRS 108, QTC 418. No HI prolongation, no QTC prolongation, no ST or T-wave changes noted. EKG compared to 09/10/2017 showing no changes. Overall, this EKG is unremarkable Lavatory evaluation obtained. CBC unremarkable. Coag panel is negative. Ve nous blood gas shows pCO2 of 62 with a bicarb of 32. She is regular flex hypercarbia with metabolic compensation. Metabolic panel shows acute kidney injury with significant elevated creatinine of 5.5 and BUN of 73. Rest of labs unremarkable. Computed tomography scan of brain is negative. Chest x-ray is nonacute. Patient be admitted with consultation to nephrology. Case discussed with Dr. Ferrara. Was pt. sent in by a medical professional or institution (, PA, [employer], urgent care, hospital, or residential...) When possible be specific @ -No Did you speak to anyone other than the patient for history (EMS, parent, family, police, friend...)? What history was obtained from this source @ - Did you review nursing and triage notes (agree or disagree)? Why? @ -I reviewed and agree with nursing and triage notes Were old charts reviewed (outside hosp., previous admission, EMS record, old EKG, old radiological studies, urgent care reports/EKG's, residential records)? Report findings @ -No old charts were reviewed Differential Diagnosis (chest pain, altered mental status, abdominal pain women, abdominal pain men, vaginal bleeding, weakness, fever, dyspnea, syncope, headache, dizziness, GI bleed, back pain, seizure, CVA, palpatations, mental health)? @ -not applicable EKG interpreted by me (3pts min.). @ -As above X-rays interpreted by me (1pt min.). @ -As above CT interpreted by me (1pt min.). @ -As above U/S interpreted by me (1pt. min.). @ -None done What testing was considered but not performed or refused? (CT, X-rays, U/S, labs)? Why? @ -None What meds were considered but not given or refused? Why? @ -None Did you discuss the management of the patient with other professionals (professionals i.e. , JOSE, AUT[employer]TER, lab, RT, psych nurse, social sciences department chair, angledozer operator, teacher, special weapons and tactics officer, case maker)? Give summary @ -See above Was smoking cessation discussed for >3mins.? @ -No Was critical care preformed (if so, how long)? @ -No Were there social determinants of health that impacted care today? How? (Homelessness, low income, unemployed, alcoholism, drug addiction, transportation, low edu. Level, literacy, decrease access to med. care, correction, rehab)? @ -No Was there de-escalation of care discussed even if they declined (Discuss DNR or withdrawal of care, Hospice)? DNR status @ -No What co-morbidities impacted this encounter? (DM, HTN, Smoking, COPD, CAD, Cancer, CVA, ARF, Chemo, Hep., AIDS, mental health diagnosis, sleep apnea, mor bid obesity)? @ -Obesity, CVA Was patient admitted / discharged? Hospital course, mention meds given and route, prescriptions, significant lab abnormalities, going to OR and other pertinent info. @ -See above Undiagnosed new problem with uncertain prognosis? @ -No Drug Therapy requiring intensive monitoring for toxicity (Heparin, Nitro, Insulin, Cardizem)? @ -No Were any procedures done? @ -No Diagnosis/symptom? @ -Acute kidney injury Acute, or Chronic, or Acute on Chronic? @ -Acute Uncomplicated (without systemic symptoms) or Complicated (systemic symptoms)? @ -default Side effects of treatment? @ -No Exacerbation, Progression, or Severe Exacerbation? @ -No Poses a threat to life or bodily function? How? (Chest pain, USA, VT, pneumonia, PE, COPD, DKA, ARF, appy, cholecystitis, CVA, Diverticulitis, Homicidal, Suicidal, threat to staff... and all critical care pts) @ -Yes - Related Data Home Medications Medication Instructions Recorded Confirmed Albuterol Inhaler [Ventolin Hfa 2 puff INHALATION RT-Q6H PRN 08/21/16 03/15/22 Inhaler] Memantine [Namenda] 10 mg PO BID 09/24/17 03/15/22 Tamsulosin HCl [Flomax] 0.4 mg PO BID 09/24/17 03/15/22 Atorvastatin [Lipitor] 10 mg PO DIRECTED 03/15/22 03/15/22 Cholecalciferol [Vitamin D3 (25 50 mcg PO DAILY 03/15/22 03/15/22 Mcg = 1000 Iu)] Furosemide [Lasix] 40 mg PO BID 03/15/22 03/15/22 Glycopyrrolate [Robinul Forte] 2 mg PO TID 03/15/22 03/15/22 Potassium Chloride [Klor-Con M20] 20 meq PO DAILY 03/15/22 03/15/22 Sertraline [Zoloft] 50 mg PO DIRECTED 03/15/22 03/15/22 Umeclidinium [place] [Incruse 1 puff INHALATION RT-DAILY 03/15/22 03/15/22 Ellipta] Allergies Allergy/AdvReac Type Severity Reaction Status Date / Time No Known Allergies Allergy Verified 03/15/22 15:33 Review of Systems ROS Statement: Those systems with pertinent positive or pertinent negative responses have been documented in the HPI. ROS Other: All systems not noted in ROS Statement are negative. Past Medical History Past Medical History: COPD, CVA/TIA, Osteoarthritis (OA) Additional Past Medical History / Comment(s): knees-arthritis, mini stroke last June. History of Any Multi-Drug Resistant Organisms: None Reported Past Surgical History: Cholecystectomy Additional Past Surgical History / Comment(s): knee surg. Past Anesthesia/Blood Transfusion Reactions: No Reported Reaction Past Psychological History: No Psychological Hx Reported Smoking Status: Never smoker Past Alcohol Use History: Rare Past Drug Use History: Marijuana - Past Family History Mother Family Medical History: No Reported History Father Family Medical History: Renal Disease Brother(s) Family Medical History: Congestive Heart Failure (CHF) Sister(s) Family Medical History: Cancer Daughter(s) Family Medical History: No Reported History General Exam Limitations: altered mental status Course Vital Signs 03/15/22 03/15/22 13:16 13:22 Temperature 97.4 F L Pulse Rate 72 Respiratory 22 Rate Blood Pressure 146/83 O2 Sat by Pulse 98 97 Oximetry Medical Decision Making - Lab Data Result diagrams: 03/15/22 13:46 03/15/22 13:46 Lab Results 03/15/22 03/15/22 03/15/22 Range/Units 13:46 13:46 13:46 WBC 7.7 (3.8-10.6) k/uL RBC 4.66 (4.30-5.90) m/uL Hgb 13.4 (13.0-17.5) gm/dL Hct 40.6 (39.0-53.0) % MCV 87.0 (80.0-100.0) fL MCH 28.6 (25.0-35.0) pg MCHC 32.9 (31.0-37.0) g/dL RDW 14.5 (11.5-15.5) % Plt Count 265 (150-450) k/uL MPV 7.8 Neutrophils % 70 % Lymphocytes % 18 % Monocytes % 7 % Eosinophils % 3 % Basophils % 0 % Neutrophils # 5.4 (1.3-7.7) k/uL Lymphocytes # 1.4 (1.0-4.8) k/uL Monocytes # 0.5 (0-1.0) k/uL Eosinophils # 0.3 (0-0.7) k/uL Basophils # 0.0 (0-0.2) k/uL PT (9.0-12.0) sec INR (<1.2) APTT (22.0-30.0) sec VBG pH (7.31-7.41) VBG pCO2 (37-51) mmHg VBG HCO3 (24-28) mmol/L Sodium 140 (137-145) mmol/L Potassium 4.3 (3.5-5.1) mmol/L Chloride 99 (98-107) mmol/L Carbon Dioxide 31 H (22-30) mmol/L Anion Gap 10 mmol/L BUN 73 H (9-20) mg/dL Creatinine 5.53 H (0.66-1.25) mg/dL Est GFR (CKD-EPI)AfAm 11 (>60 ml/min/1.73 sqM) Est GFR (CKD-EPI)NonAf 9 (>60 ml/min/1.73 sqM) Glucose 118 H (74-99) mg/dL Plasma Lactic Acid Samuel 0.8 (0.7-2.0) mmol/L Calcium 8.4 (8.4-10.2) mg/dL Magnesium 2.4 H (1.6-2.3) mg/dL Total Bilirubin 0.7 (0.2-1.3) mg/dL AST 29 (17-59) U/L ALT 23 (4-49) U/L Alkaline Phosphatase 116 (38-126) U/L Ammonia <9 (<30) umol/L Troponin I (0.000-0.034) ng/mL Total Protein 6.9 (6.3-8.2) g/dL Albumin 3.8 (3.5-5.0) g/dL Influenza Type A (PCR) (Not Detectd) Influenza Type B (PCR) (Not Detectd) RSV (PCR) (Not Detectd) SARS-CoV-2 (PCR) (Not Detectd) 03/15/22 03/15/22 03/15/22 Range/Units 13:46 13:46 13:46 WBC (3.8-10.6) k/uL RBC (4.30-5.90) m/uL Hgb (13.0-17.5) gm/dL Hct (39.0-53.0) % MCV (80.0-100.0) fL MCH (25.0-35.0) pg MCHC (31.0-37.0) g/dL RDW (11.5-15.5) % Plt Count (150-450) k/uL MPV Neutrophils % % Lymphocytes % % Monocytes % % Eosinophils % % Basophils % % Neutrophils # (1.3-7.7) k/uL Lymphocytes # (1.0-4.8) k/uL Monocytes # (0-1.0) k/uL Eosinophils # (0-0.7) k/uL Basophils # (0-0.2) k/uL PT 10.0 (9.0-12.0) sec INR 0.9 (<1.2) APTT 23.6 (22.0-30.0) sec VBG pH 7.33 (7.31-7.41) VBG pCO2 62 H (37-51) mmHg VBG HCO3 32 H (24-28) mmol/L Sodium (137-145) mmol/L Potassium (3.5-5.1) mmol/L Chloride (98-107) mmol/L Carbon Dioxide (22-30) mmol/L Anion Gap mmol/L BUN (9-20) mg/dL Creatinine (0.66-1.25) mg/dL Est GFR (CKD-EPI)AfAm (>60 ml/min/1.73 sqM) Est GFR (CKD-EPI)NonAf (>60 ml/min/1.73 sqM) Glucose (74-99) mg/dL Plasma Lactic Acid Samuel (0.7-2.0) mmol/L Calcium (8.4-10.2) mg/dL Magnesium (1.6-2.3) mg/dL Total Bilirubin (0.2-1.3) mg/dL AST (17-59) U/L ALT (4-49) U/L Alkaline Phosphatase (38-126) U/L Ammonia (<30) umol/L Troponin I 0.015 (0.000-0.034) ng/mL Total Protein (6.3-8.2) g/dL Albumin (3.5-5.0) g/dL Influenza Type A (PCR) (Not Detectd) Influenza Type B (PCR) (Not Detectd) RSV (PCR) (Not Detectd) SARS-CoV-2 (PCR) (Not Detectd) 03/15/22 Range/Units 13:46 WBC (3.8-10.6) k/uL RBC (4.30-5.90) m/uL Hgb (13.0-17.5) gm/dL Hct (39.0-53.0) % MCV (80.0-100.0) fL MCH (25.0-35.0) pg MCHC (31.0-37.0) g/dL RDW (11.5-15.5) % Plt Count (150-450) k/uL MPV Neutrophils % % Lymphocytes % % Monocytes % % Eosinophils % % Basophils % % Neutrophils # (1.3-7.7) k/uL Lymphocytes # (1.0-4.8) k/uL Monocytes # (0-1.0) k/uL Eosinophils # (0-0.7) k/uL Basophils # (0-0.2) k/uL PT (9.0-12.0) sec INR (<1.2) APTT (22.0-30.0) sec VBG pH (7.31-7.41) VBG pCO2 (37-51) mmHg VBG HCO3 (24-28) mmol/L Sodium (137-145) mmol/L Potassium (3.5-5.1) mmol/L Chloride (98-107) mmol/L Carbon Dioxide (22-30) mmol/L Anion Gap mmol/L BUN (9-20) mg/dL Creatinine (0.66-1.25) mg/dL Est GFR (CKD-EPI)AfAm (>60 ml/min/1.73 sqM) Est GFR (CKD-EPI)NonAf (>60 ml/min/1.73 sqM) Glucose (74-99) mg/dL Plasma Lactic Acid Samuel (0.7-2.0) mmol/L Calcium (8.4-10.2) mg/dL Magnesium (1.6-2.3) mg/dL Total Bilirubin (0.2-1.3) mg/dL AST (17-59) U/L ALT (4-49) U/L Alkaline Phosphatase (38-126) U/L Ammonia (<30) umol/L Troponin I (0.000-0.034) ng/mL Total Protein (6.3-8.2) g/dL Albumin (3.5-5.0) g/dL Influenza Type A (PCR) Not Detected (Not Detectd) Influenza Type B (PCR) Not Detected (Not Detectd) RSV (PCR) Not Detected (Not Detectd) SARS-CoV-2 (PCR) Not Detected (Not Detectd) Disposition Clinical Impression: VINAY (acute kidney injury) Disposition: ADMITTED IP TO THIS HOSP Condition: Fair Referrals: Keshia Oneill MD [Primary Care Provider] - 1-2 days Decision Time: 15:42
[2022-03-15 14:17] LABS: VBG PH 7.33 (7.31-7.41)
--- NOTE | 2022-03-15 14:23 | XR ---
EXAMINATION TYPE: XR chest 2V DATE OF EXAM: 03/15/2022 COMPARISON: 02/13/2021 HISTORY: Altered mental status TECHNIQUE: 2 views FINDINGS: There is no heart failure or confluent pneumonic infiltrate. Costophrenic angles are clear. Bony thorax is intact heart size is normal. IMPRESSION: No active cardiopulmonary disease. No change.
[2022-03-15 14:28] LABS: Lactic Acid, Venous 0.8 mmol/L (0.7-2.0)
[2022-03-15 14:32] LABS: INR 0.9 (<1.2); Partial Thromboplastin Time 23.6 sec (22.0-30.0)
[2022-03-15 14:33] LABS: Albumin 3.8 g/dL (3.5-5.0); Basophils % (A) 0 %; Calcium 8.4 mg/dL (8.4-10.2); Eosinophils # (A) 0.3 k/uL (0-0.7); Eosinophils % (A) 3 %; HCT 40.6 % (39.0-53.0); HGB 13.4 gm/dL (13.0-17.5); Lymphocytes # (A) 1.4 k/uL (1.0-4.8); Lymphocytes % (A) 18 %; MCH 28.6 pg (25.0-35.0); MCHC 32.9 g/dL (31.0-37.0); Magnesium 2.4 mg/dL (1.6-2.3); Mean Platelet Volume 7.8; Monocytes # (A) 0.5 k/uL (0-1.0); Monocytes % (A) 7 %; Neutrophils # (A) 5.4 k/uL (1.3-7.7); Neutrophils % (A) 70 %; Platelet Count 265 k/uL (150-450); Potassium 4.3 mmol/L (3.5-5.1); RBC 4.66 m/uL (4.30-5.90); RDW 14.5 % (11.5-15.5); Total Bilirubin 0.7 mg/dL (0.2-1.3); Total Protein 6.9 g/dL (6.3-8.2); WBC 7.7 k/uL (3.8-10.6)
--- NOTE | 2022-03-15 15:10 | CT ---
EXAMINATION TYPE: CT brain wo con DATE OF EXAM: 03/15/2022 COMPARISON: 08/21/2016 HISTORY: AMS CT DLP: 1158.4 mGycm Automated exposure control for dose reduction was used. There is moderate diffuse cerebral cortical atrophy. There is extensive hypodensity in the periventri cular white matter. There is enlargement of the ventricles. No mass effect or midline shift. No sign of intracranial hemorrhage. There is hypodensity in the inferior left cerebellar hemisphere consisten t with old infarct. Calvarium is intact. IMPRESSION: Cerebral atrophy and chronic small vessel ischemia. 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 No acute intracranial abnormality.
[2022-03-15] MEDS ORDERED: SODIUM CHLORIDE 0.9% 1,000 ML IV STA (15:15)
[2022-03-15] MEDS ORDERED: NALOXONE 0.4 MG/ML 1 ML VIAL IV PRN (15:38)
[2022-03-15] MEDS ORDERED: ALBUTEROL NEBULIZED 2.5 MG/3 ML INHALATION PRN (16:02)
[2022-03-15 16:26] LABS: Appearance,Urine Clear (Clear); Bacteria,Urine Rare /hpf; Bilirubin,Urine Negative (Negative); Blood,Urine Large (Negative); Color,Urine Light Yellow; Glucose,Urine (UA) Negative (Negative); Hyaline Casts,Urine 1 /lpf (0-2); Ketones,Urine Negative (Negative); Leukocyte Esterase,Urine Negative (Negative); Nitrite,Urine Negative (Negative); PH, Urine 5.5 (5.0-8.0); Protein,Urine Trace (Negative); RBC,Urine 89 /hpf (0-5); Specific Gravity,Urine 1.006 (1.001-1.035); Squamous Epithelial Cell,Urine <1 /hpf (0-4); Urobilinogen,Urine <2.0 mg/dL (<2.0); WBC,Urine 1 /hpf (0-5)
--- NOTE | 2022-03-15 16:40 | P.HPIM ---
History of Present Illness 70-year-old male was brought in because of altered mental status patient has been not been himself. Patient does have Alzheimer's dementia history. Patient is any fever chills patient had nausea vomiting. Patient the is alert oriented 2. Patient appears to have advanced dementia at baseline from the history obtained from his significant other. Patient is found to be in acute renal failure with a limited be enough 73 and creatinine of 5.53. Patient baseline is within normal limits. Patient does take Lasix at home doesn't have any history of His Heart Failure. Patient Is Obese Probably Taking His Lasix for Peripheral Edema. REVIEW OF SYSTEMS: Current review of systems dictated in HPI PHYSICAL EXAMINATION: GENERAL: The patient is alert and oriented x1, not in any acute distress. Well developed, well nourished. HEENT: Pupils are round and equally reacting to light. EOMI. No scleral icterus. No conjunctival pallor. Normocephalic, atraumatic. No pharyngeal erythema. No thyromegaly. CARDIOVASCULAR: S1 and S2 present. No murmurs, rubs, or gallops. PULMONARY: Chest is clear to auscultation, no wheezing or crackles. ABDOMEN: Soft, nontender, nondistended, normoactive bowel sounds. No palpable organomegaly. MUSCULOSKELETAL: No joint swelling or deformity. EXTREMITIES: No cyanosis, clubbing, or pedal edema. NEUROLOGICAL: Gross neurological examination did not reveal any focal deficits. SKIN: No rashes. Assessment and plan -Acute renal failure: Patient does have urinary retention about 2 L of urine most probably secondary to urinary retention patient has a Henry catheter at this time, there may be a competent of renal azotemia from Lasix use Lasix will be held and patient was started on IV fluids will monitor the kidney function OF THE KIDNEY WILL BE OBTAINED URINE RANDOM SODIUM URINE RANDOM CREATININE WILL BE OBTAINED. -Dementia, also must type: Patient's CT although showed some chronic small vessel ischemic changes as well have a competent of vascular dementia patient appears to have advanced dementia, supportive care physical therapy and occupational therapy evaluation -History of for CVAs TIAs in the past -COPD without any acute exacerbation -Hyperlipidemia -Depression - benign prostatic hypertrophy for which patient is on tamsulosin DVT prophylaxis: Subcutaneous heparin Past Medical History Past Medical History: COPD, CVA/TIA, Osteoarthritis (OA) Additional Past Medical History / Comment(s): knees-arthritis, mini stroke last June. History of Any Multi-Drug Resistant Organisms: None Reported Past Surgical History: Cholecystectomy Additional Past Surgical History / Comment(s): knee surg. Past Anesthesia/Blood Transfusion Reactions: No Reported Reaction Past Psychological History: No Psychological Hx Reported Smoking Status: Never smoker Past Alcohol Use History: Rare Past Drug Use History: Marijuana - Past Family History Mother Family Medical History: No Reported History Father Family Medical History: Renal Disease Brother(s) Family Medical History: Congestive Heart Failure (CHF) Sister(s) Family Medical History: Cancer Daughter(s) Family Medical History: No Reported History Medications and Allergies Home Medications Medication Instructions Recorded Confirmed Type Albuterol Inhaler [Ventolin Hfa 2 puff INHALATION RT-Q6H PRN 08/21/16 03/15/22 History Inhaler] Memantine [Namenda] 10 mg PO BID 09/24/17 03/15/22 History Tamsulosin HCl [Flomax] 0.4 mg PO BID 09/24/17 03/15/22 History Atorvastatin [Lipitor] 10 mg PO DIRECTED 03/15/22 03/15/22 History Cholecalciferol [Vitamin D3 (25 50 mcg PO DAILY 03/15/22 03/15/22 History Mcg = 1000 Iu)] Furosemide [Lasix] 40 mg PO BID 03/15/22 03/15/22 History Glycopyrrolate [Robinul Forte] 2 mg PO TID 03/15/22 03/15/22 History Potassium Chloride [Klor-Con M20] 20 meq PO DAILY 03/15/22 03/15/22 History Sertraline [Zoloft] 50 mg PO DIRECTED 03/15/22 03/15/22 History Umeclidinium [place] [Incruse 1 puff INHALATION RT-DAILY 03/15/22 03/15/22 History Ellipta] Allergies Allergy/AdvReac Type Severity Reaction Status Date / Time No Known Allergies Allergy Verified 03/15/22 15:33 Physical Exam Vitals: Vital Signs Temp Pulse Resp BP Pulse Ox 03/15/22 16:08 91 20 154/88 95 03/15/22 13:22 97 03/15/22 13:16 97.4 F L 72 22 146/83 98 Intake and Output 03/15/22 03/15/22 03/15/22 06:59 14:59 22:59 Other: Weight 136.078 kg Results CBC & Chem 7: 03/15/22 13:46 03/15/22 13:46 Labs: Abnormal Lab Results - Last 24 Hours (Table) 03/15/22 03/15/22 03/15/22 Range/Units 13:46 13:46 13:46 VBG pCO2 62 H (37-51) mmHg VBG HCO3 32 H (24-28) mmol/L Carbon Dioxide 31 H (22-30) mmol/L BUN 73 H (9-20) mg/dL Creatinine 5.53 H (0.66-1.25) mg/dL Glucose 118 H (74-99) mg/dL Phosphorus (2.5-4.5) mg/dL Magnesium 2.4 H (1.6-2.3) mg/dL Urine Protein Trace H (Negative) Urine Blood Large H (Negative) Urine RBC 89 H (0-5) /hpf Urine Bacteria Rare H (None) /hpf 03/15/22 Range/Units 13:46 VBG pCO2 (37-51) mmHg VBG HCO3 (24-28) mmol/L Carbon Dioxide (22-30) mmol/L BUN (9-20) mg/dL Creatinine (0.66-1.25) mg/dL Glucose (74-99) mg/dL Phosphorus 6.8 H (2.5-4.5) mg/dL Magnesium (1.6-2.3) mg/dL Urine Protein (Negative) Urine Blood (Negative) Urine RBC (0-5) /hpf Urine Bacteria (None) /hpf
--- NOTE | 2022-03-15 16:55 | US ---
EXAMINATION TYPE: US kidneys/renal and bladder DATE OF EXAM: 03/15/2022 COMPARISON: NONE CLINICAL HISTORY: VINAY. EXAM MEASUREMENTS: Right Kidney: 13.2 x 6.3 x 5.2 cm Left Kidney: unable to visualize well enough to obtain estimate on sagittal view. 5.2 cm transverse Morbidly obese patient, laying supine, unable to move for examiner. Technically difficult, very limit ed study. Right Kidney: hydronephrosis vs pyonephrosis. measures large Left Kidney: probable hydronephrosis vs pyonephrosis seen on this kidney as well, visualization much more limited than right Bladder: not visualized due to Henry and obesity There is no evidence for hydronephrosis at this point in time. No nephrolithiasis is seen. No karie s are identified. The urinary bladder is anechoic. Bilateral ureteral jets are seen. IMPRESSION: Exam was technically limited. There is evidence for bilateral hydronephrosis. Urinary bladder not wel l seen. No evidence of a solid renal mass. Limited exam.
[2022-03-15] MEDS: SERTRALINE 50 MG TAB PO SCH (17:19)
[2022-03-15] MEDS: SODIUM CHLORIDE 0.9% 1,000 ML IV SCH (18:06)
[2022-03-15] MEDS ORDERED: traZODone HCL 50 MG TAB PO PRN (19:32)
[2022-03-15] MEDS: ATORVASTATIN 10 MG TAB PO SCH (20:05)
[2022-03-15] MEDS: FAMOTIDINE 20 MG TAB PO SCH (20:05)
[2022-03-15] MEDS: HEPARIN SODIUM,PORCINE/PF 5,000 UNIT/0.5 ML SYRINGE SQ SCH (20:05)
[2022-03-15] MEDS: TAMSULOSIN 0.4 MG CAP.ER.24H PO SCH (20:06)
[2022-03-15] MEDS: HYDROcodone/APAP 5-325MG 1 EACH TAB PO PRN (20:06)
[2022-03-15] MEDS ORDERED: MEMANTINE 10 MG TAB PO SCH (21:00)
[2022-03-16] MEDS: SODIUM CHLORIDE 0.9% 1,000 ML IV SCH (06:26)
[2022-03-16 06:51] LABS: African American GFR (CKD) 11 (>60 ml/min/1.73 sqM); Anion Gap 9 mmol/L; Blood Urea Nitrogen 73 mg/dL (9-20); Calcium 8.5 mg/dL (8.4-10.2); Carbon Dioxide 28 mmol/L (22-30); Chloride 101 mmol/L (98-107); Glucose 161 mg/dL (74-99); Magnesium 2.3 mg/dL (1.6-2.3); Non-African American GFR(CKD) 9 (>60 ml/min/1.73 sqM); Potassium 4.5 mmol/L (3.5-5.1); Sodium 138 mmol/L (137-145)
[2022-03-16] MEDS: IPRATROPIUM 0.5 MG/2.5 ML NEBU INHALATION SCH ×4 (08:17→20:58)
[2022-03-16] MEDS: HEPARIN SODIUM,PORCINE/PF 5,000 UNIT/0.5 ML SYRINGE SQ SCH ×2 (08:53→20:21)
[2022-03-16] MEDS: SERTRALINE 50 MG TAB PO SCH (09:00)
[2022-03-16] MEDS: TAMSULOSIN 0.4 MG CAP.ER.24H PO SCH ×2 (09:00→20:21)
[2022-03-16] MEDS: MEMANTINE 5 MG TAB PO SCH ×2 (09:01→20:21)
[2022-03-16] MEDS: CHOLECALCIFEROL 25 MCG (1000 IU) TABLET PO SCH (09:01)
--- NOTE | 2022-03-16 11:36 | XR ---
EXAMINATION TYPE: XR chest 1V portable DATE OF EXAM: 03/16/2022 11:12 AM COMPARISON: Chest radiographs from same day TECHNIQUE: XR chest 1V portable Portable AP radiograph of the chest. CLINICAL INDICATION:Male, 76 years old with history of difficulty breathing; FINDINGS: Lungs/Pleura: There is no evidence of pleural effusion, focal consolidation, or pneumothorax. Pulmonary vascularity: Pulmonary vascular congestion. Heart/mediastinum: Cardiomediastinal silhouette is enlarged and stable. Musculoskeletal: No acute osseous pathology. IMPRESSION: Cardiomegaly and mild pulmonary vascular congestion. Correlate with BNP for congestive heart failure.
--- NOTE | 2022-03-16 12:20 | P.NPCON ---
History of Present Illness - Reason for Consult Consult date: 03/16/22 acute renal failure - Chief Complaint Acute kidney injury - History of Present Illness This is 68-year-old male with history of dementia who came in because of changes in mental status. He is unable to give any reliable history Spoke to his girlfriend. He's been eating well. No nausea vomiting no fever chills he was incontinent of urine. Creatinine on admission is 5.53, previously was 0.9 dated 08/05/2021. Vital signs are stable urine output is documented 16 50 mL with an indwelling catheter, blood-tinged urine. Urinalysis suggestive of urinary tract infection with large blood 89 RBCs but only 1 WBC. Workup has included a ultrasound which shows technically limited bilateral hydronephrosis right kidney 13.2 and left kidney not visualized well chest x-ray that shows cardiomegaly and mild vascular congestion CT of the head cerebral atrophy and chronic small is ischemia old left cerebellar hemisphere cortical infarct History of Present Illness: Patient is 68-year-old male who has past medical history of COPD, stroke and early onset dementia. He is brought in by who provides history of present illness. at the bedside reports that since last night patient has been having outbursts as if he was in pain. She also notes that when he did fall asleep that his oxygen levels with decrease to the 80s. Patient has history of COPD and stroke. Patient does not use supplemental oxygen at home. Patient unable to write history present illness at this time due to baseline mental health. at the bedside reports that she has a visiting physician is I come to the house. Patient normally is unwilling to leave the house for evaluation. This time he agreed. Past Medical History Past Medical History: COPD, CVA/TIA, Osteoarthritis (OA) Additional Past Medical History / Comment(s): knees-arthritis, mini stroke last June. History of Any Multi-Drug Resistant Organisms: None Reported Past Surgical History: Cholecystectomy Additional Past Surgical History / Comment(s): knee surg. Past Anesthesia/Blood Transfusion Reactions: No Reported Reaction Past Psychological History: No Psychological Hx Reported Additional Psychological History / Comment(s): Was very agitated when I spoke with him on the phone. Smoking Status: Never smoker Past Alcohol Use History: Rare Past Drug Use History: Marijuana Additional Drug Use History / Comment(s): rare use - Past Family History Mother Family Medical History: No Reported History Father Family Medical History: Renal Disease Brother(s) Family Medical History: Congestive Heart Failure (CHF) Sister(s) Family Medical History: Cancer Daughter(s) Family Medical History: No Reported History Medications and Allergies Home Medications Medication Instructions Recorded Confirmed Type Albuterol Inhaler [Ventolin Hfa 2 puff INHALATION RT-Q6H PRN 08/21/16 03/15/22 H istory Inhaler] Memantine [Namenda] 10 mg PO BID 09/24/17 03/15/22 History Tamsulosin HCl [Flomax] 0.4 mg PO BID 09/24/17 03/15/22 History Atorvastatin [Lipitor] 10 mg PO DAILY 03/15/22 03/15/22 History Cholecalciferol [Vitamin D3 (25 50 mcg PO DAILY 03/15/22 03/15/22 History Mcg = 1000 Iu)] Furosemide [Lasix] 40 mg PO BID 03/15/22 03/15/22 History Glycopyrrolate [Robinul Forte] 2 mg PO TID 03/15/22 03/15/22 History Potassium Chloride [Klor-Con M20] 20 meq PO DAILY 03/15/22 03/15/22 History Sertraline [Zoloft] 50 mg PO DAILY 03/15/22 03/15/22 History Umeclidinium [place] [Incruse 1 puff INHALATION RT-DAILY 03/15/22 03/15/22 History Ellipta] Allergies Allergy/AdvReac Type Severity Reaction Status Date / Time No Known Allergies Allergy Verified 03/15/22 15:33 Physical Exam Vitals: Vital Signs Temp Pulse Pulse Resp BP BP Pulse Ox 03/16/22 11:36 78 03/16/22 11:28 78 03/16/22 11:25 98 03/16/22 11:08 95 24 131/72 98 03/16/22 07:05 98.1 F 83 17 128/61 93 L 03/15/22 20:06 91 20 03/15/22 19:51 97.9 F 91 20 163/90 93 L 03/15/22 18:13 18 03/15/22 17:53 98 F 93 18 139/70 97 03/15/22 16:08 91 20 154/88 95 03/15/22 13:22 97 03/15/22 13:16 97.4 F L 72 22 146/83 98 Intake and Output 03/15/22 03/16/22 03/16/22 22:59 06:59 14:59 Output Total 900 750 Balance -900 -750 Output: Urine 900 750 Other: Voiding Method Indwelling Catheter Weight 136.078 kg on examination is somewhat obtunded. He does follow commands. No JVP noted neck is supple no facial asymmetry Lungs are significant for an occasional coarse crackle and diminished air entry. Heart sounds unremarkable except for irregular heartbeat. Abdomen is soft obese no masses felt nontender Extremity exams trace edema Neurologically arousable pressure follow commands Results - Lab Results Most recent lab results Calcium 8.5 mg/dL (8.4-10.2) 03/16/22 06:07 Phosphorus 6.8 mg/dL (2.5-4.5) H 03/15/22 13:46 Magnesium 2.3 mg/dL (1.6-2.3) 03/16/22 06:07 03/15/22 13:46 03/16/22 06:07 Assessment and Plan Assessment: Impression 1. Acute kidney injury likely from outlet obstruction rule out urinary tract infection although urine analysis does not have any WBCs but has blood RBCs and bacteria. Creatinine on admission yesterday was 5.53 and this morning is 5.4. He is making fair amount of urine. Ultrasound shows 13.2 cm right kidney left kidney is not well visualized, hydronephrosis was noted bilaterally 2. Possible congestive heart failure. 3. Irregular heart beat although EKG shows normal sinus rhythm yesterday. 4. Dementia 5. Rule out urinary tract infection Recommendation 1. KVO IV fluids because of risk for congestive heart failure 2. 20 mg of Lasix IV 1 dose 3. Urine culture is not done 4. Rocephin 1 g every 24 hours until cultures are back 5. Repeat labs tomorrow Thank you for this consultation we'll continue follow closely
[2022-03-16] MEDS ORDERED: FUROSEMIDE 10 MG/ML 2 ML VIAL IV ONE (12:30)
--- NOTE | 2022-03-16 14:18 | P.PN ---
Subjective Progress Note Date: 03/16/22 70-year-old male was brought in because of altered mental status patient has been not been himself. Patient does have Alzheimer's dementia history. Patient is any fever chills patient had nausea vomiting. Patient the is alert oriented 2. Patient appears to have advanced dementia at baseline from the history obtained from his significant other. Patient is found to be in acute renal failure with a limited be enough 73 and creatinine of 5.53. Patient baseline is within normal limits. Patient does take Lasix at home doesn't have any history of His Heart Failure. Patient Is Obese Probably Taking His Lasix for Peripheral Edema. 03/16/2022 Patient is evaluated today resting in bed with his significant other at the bedside. She is concerned with his mentation, he appears encephalopathic. There is no focal weakness noted on exam. He is following commands however he is significantly weak. He has been followed by Dr. Selvin huynh who has been coming to the house to see him, he has not been out of the house in the last year and his significant other has been caring for him. Currently he is requiring 2L of oxygen via nasal cannula. He had abdomen/bladder ultrasound completed showing eveidence for bilateral hydronephrosis and indwelling catheter was placed. His creatinine today is stable and not improved currently 5.40 today and nephrology is consulted. His labs otherwise are essentially normal. He was receiving IV fluids initially for the kidney injury however he had chest xray done as he does appear to be short of breath which his xray is showing cardiomegaly and mild pulmonary vascular congestion possible CHF. He is currently on 2 to 3L of oxygen, afebrile, heart rate 78 and blood pressure 131/72. Review of Systems Difficult to complete ros as patient has some respiratory distress and is drowsy today. All inpatient medications were reviewed and appropriate changes in these medications as dictated in the interval history and assessment and plan. PHYSICAL EXAMINATION: GENERAL: The patient is alert and oriented x1, having some mild respiratory distress on 3 L nasal cannula.. Well developed, well nourished. HEENT: Pupils are round and equally reacting to light. EOMI. No scleral icterus. No conjunctival pallor. Normocephalic, atraumatic. No pharyngeal erythema. No thyromegaly. CARDIOVASCULAR: S1 and S2 present. No murmurs, rubs, or gallops. PULMONARY: Chest is diminished and tight with decreased aeration throughout. ABDOMEN: Soft, nontender, nondistended, normoactive bowel sounds. No palpable organomegaly. MUSCULOSKELETAL: No joint swelling or deformity. EXTREMITIES: No cyanosis, clubbing, or pedal edema. Mild peripheral edema. NEUROLOGICAL: Gross neurological examination did not reveal any focal deficits. SKIN: No rashes. Assessment and plan -Acute renal failure: patient was found to have obstructive uropathy with bilateral hydronephrosis and indwelling catheter was placed. Lasix was placed on hold and patient was being hydrated without improvement of his creatinine. -Acute hypoxic respiratory failure most likely from CHF exacerbation received a dose of IV lasix and continues on 2-3L of oxygen. -Altered mental status likely from metabolic encephalopathy from VINAY with component of dementia -Dementia, Alzheimers type: Patient's CT although showed some chronic small vessel ischemic changes as well have a competent of vascular dementia patient appears to have advanced dementia, supportive care physical therapy and occupational therapy evaluation -History of for CVAs TIAs in the past -COPD without any acute exacerbation -Hyperlipidemia -Depression -Benign prostatic hypertrophy for which patient is on tamsulosin DVT prophylaxis: Subcutaneous heparin GI prophylaxis: Pepcid Full Code Plan IV fluids will be discontinued, patient is given a one time dose of IV lasix and will repeat labs in the morning. Nephrology is following the patient closely. He continues indwelling catheter in place. Will check a serum BNP and obtain echocardiogram. Patient has been started on empiric antibiotics with IV ceftriaxone although urinalysis not overly suspicious for infection patient has no white count and normal lactic acid. Urine culture is pending and procalcitonin level will be checked also. Continue all other supportive care and also physical therapy and occupational therapy will be consulted. Recommend also for bedside swallow evaluation and caution with oral intake until his mentation improves. Consider speech therapy evaluation also. The impression and plan of care has been dictated by Leena Sal Nurse Practitioner as directed. Dr. Josias MD I have performed a history and physical examination and medical decision making of this patient, discussed the same with the dictator, and agree with the d ictators assessment and plan as written, documented as a scribe. Based on total visit time, I have performed more than 50% of this visit. Objective - Vital Signs Vital signs: Vital Signs Temp 98.1 F 03/16/22 07:05 Pulse 78 01/15/23 11:36 Resp 24 03/16/22 11:08 BP 131/72 03/16/22 11:08 Pulse Ox 98 03/16/22 11:25 FiO2 Intake & Output 03/15/22 03/16/22 03/16/22 18:59 06:59 18:59 Output Total 1650 Balance -1650 Weight 136.078 kg 136.078 kg Output: Urine 1650 Other: Voiding Method Indwelling Catheter Indwelling Catheter - Labs CBC & Chem 7: 03/15/22 13:46 03/16/22 06:07 Labs: Abnormal Lab Results - Last 24 Hours (Table) 03/15/22 03/15/22 03/15/22 Range/Units 13:46 13:46 13:46 VBG pCO2 62 H (37-51) mmHg VBG HCO3 32 H (24-28) mmol/L Carbon Dioxide 31 H (22-30) mmol/L BUN 73 H (9-20) mg/dL Creatinine 5.53 H (0.66-1.25) mg/dL Glucose 118 H (74-99) mg/dL Phosphorus (2.5-4.5) mg/dL Magnesium 2.4 H (1.6-2.3) mg/dL Urine Protein Trace H (Negative) Urine Blood Large H (Negative) Urine RBC 89 H (0-5) /hpf Urine Bacteria Rare H (None) /hpf 03/15/22 03/16/22 Range/Units 13:46 06:07 VBG pCO2 (37-51) mmHg VBG HCO3 (24-28) mmol/L Carbon Dioxide (22-30) mmol/L BUN 73 H (9-20) mg/dL Creatinine 5.40 H (0.66-1.25) mg/dL Glucose 161 H (74-99) mg/dL Phosphorus 6.8 H (2.5-4.5) mg/dL Magnesium (1.6-2.3) mg/dL Urine Protein (Negative) Urine Blood (Negative) Urine RBC (0-5) /hpf Urine Bacteria (None) /hpf Assessment and Plan Time with Patient: Greater than 30
[2022-03-16] MEDS: FAMOTIDINE 20 MG TAB PO SCH (20:21)
[2022-03-16] MEDS: ATORVASTATIN 10 MG TAB PO SCH (20:21)
[2022-03-16] MEDS ORDERED: METOPROLOL TARTRATE 50 MG TAB PO STA (23:30)
[2022-03-16] MEDS ORDERED: HEPARIN SODIUM 1,000 UN/ML (10ML VL) IV ONE (23:50)
[2022-03-17] MEDS: HEPARIN SOD,PORK IN 0.45% NACL 25,000 UNIT in 0.45% NACL 1 250ML.BAG IV SCH ×2 (00:03→21:43)
[2022-03-17] MEDS ORDERED: DILTIAZEM 125 MG in SODIUM CHLORIDE 0.9% 100 ML IV SCH (00:15)
[2022-03-17 00:38] LABS: INR 1.2 (<1.2); Partial Thromboplastin Time 84.1 sec (22.0-30.0)
[2022-03-17] MEDS: HYDROcodone/APAP 5-325MG 1 EACH TAB PO PRN (03:43)
[2022-03-17] MEDS ORDERED: HYDROmorphone 0.5 MG/0.5 ML SYRINGE IVP STA (06:17)
[2022-03-17 06:39] LABS: Basophils % (A) 0 %; Eosinophils % (A) 0 %; HCT 40.2 % (39.0-53.0); HGB 12.8 gm/dL (13.0-17.5); Lymphocytes # (A) 1.3 k/uL (1.0-4.8); Lymphocytes % (A) 8 %; MCH 27.5 pg (25.0-35.0); MCHC 31.9 g/dL (31.0-37.0); MCV 86.1 fL (80.0-100.0); Mean Platelet Volume 7.8; Monocytes # (A) 0.8 k/uL (0-1.0); Monocytes % (A) 5 %; Neutrophils # (A) 13.7 k/uL (1.3-7.7); Neutrophils % (A) 86 %; Platelet Count 304 k/uL (150-450); RBC 4.67 m/uL (4.30-5.90); RDW 14.1 % (11.5-15.5); WBC 15.9 k/uL (3.8-10.6)
[2022-03-17 07:04] LABS: INR 1.1 (<1.2); Partial Thromboplastin Time 42.7 sec (22.0-30.0); Prothrombin Time 11.3 sec (9.0-12.0)
[2022-03-17] MEDS: CHOLECALCIFEROL 25 MCG (1000 IU) TABLET PO SCH (08:21)
[2022-03-17] MEDS: SERTRALINE 50 MG TAB PO SCH (08:21)
[2022-03-17] MEDS: ACETAMINOPHEN TAB 325 MG TAB PO PRN (08:21)
[2022-03-17] MEDS: MEMANTINE 5 MG TAB PO SCH ×2 (08:21→21:43)
[2022-03-17] MEDS: TAMSULOSIN 0.4 MG CAP.ER.24H PO SCH ×2 (08:21→21:43)
[2022-03-17] MEDS: HEPARIN SODIUM 1,000 UN/ML (10ML VL) IV PRN (08:24)
[2022-03-17 08:36] LABS: Calcium 8.3 mg/dL (8.4-10.2); Potassium 4.1 mmol/L (3.5-5.1)
[2022-03-17] MEDS: IPRATROPIUM 0.5 MG/2.5 ML NEBU INHALATION SCH ×2 (09:18→12:16)
--- NOTE | 2022-03-17 11:09 | P.PN ---
Subjective Patient is seen for follow-up for acute kidney injury. Admitted with a serum creatinine of about 5.5 which increased to 5.8 today. Previous creatinine 0.9 on 08/05/2021. Ultrasound shows evidence of bilateral hydronephrosis. Patient currently has an indwelling Henry catheter which was flushed last night. Urine output documented at 1.8 L. Patient's mentation has decreased from baseline according to girlfriend's report. This morning however patient was lethargic but was able to communicate. He is also noted to be eating. Chest x-ray showed evidence of pulmonary vascular congestion. Currently not on any IV fluids. Patient also has A. fib with RVR and maintained on IV Cardizem drip. Objective - Vital Signs Vital signs: Vital Signs Temp 98.3 F 03/17/22 08:20 Pulse 84 03/17/22 09:18 Resp 20 03/17/22 08:20 BP 129/67 03/17/22 08:20 Pulse Ox 88 L 03/17/22 08:20 FiO2 Intake & Output 03/16/22 03/17/22 03/17/22 18:59 06:59 18:59 Intake Total 83.333 Output Total 1100 700 Balance -1100 -700 83.333 Weight 137 kg Intake: Intake, IV Titration 83.333 Amount Heparin Sod,Pork in 0.45% 83.333 NaCl 25,000 unit In 0.45 % NaCl 1 250ml.bag @ 7. 3487 UNITS/KG/HR 10 mls/ hr IV .Q24H [facility] Rx#: [id number] Output: Urine 1100 700 Other: Voiding Method Indwelling Catheter Indwelling Catheter # Bowel Movements 0 - Exam Awake, comfortable, no acute distress. Does not communicate much however he was communicating with the respiratory therapist. Examination of the heart S1 and S2 Examination lungs decreased breath sounds at the bases Abdomen is soft distended obese, nontender Examination lower extremity shows chronic skin changes, trace edema No asterixis noted. - Labs CBC & Chem 7: 03/17/22 05:54 03/17/22 05:54 Labs: Abnormal Lab Results - Last 24 Hours (Table) 03/16/22 03/17/22 03/17/22 Range/Units 18:50 00:12 05:54 WBC (3.8-10.6) k/uL Hgb (13.0-17.5) gm/dL Neutrophils # (1.3-7.7) k/uL INR 1.2 H (<1.2) APTT 84.1 H 42.7 H (22.0-30.0) sec BUN (9-20) mg/dL Creatinine (0.66-1.25) mg/dL Glucose (74-99) mg/dL Calcium (8.4-10.2) mg/dL Procalcitonin 0.62 H (0.02-0.09) ng/mL 03/17/22 03/17/22 Range/Units 05:54 05:54 WBC 15.9 H (3.8-10.6) k/uL Hgb 12.8 L (13.0-17.5) gm/dL Neutrophils # 13.7 H (1.3-7.7) k/uL INR (<1.2) APTT (22.0-30.0) sec BUN 71 H (9-20) mg/dL Creatinine 5.88 H (0.66-1.25) mg/dL Glucose 133 H (74-99) mg/dL Calcium 8.3 L (8.4-10.2) mg/dL Procalcitonin (0.02-0.09) ng/mL Microbiology - Last 24 Hours (Table) 03/16/22 12:24 Urine Culture - Preliminary Urine,Clean Catch Assessment and Plan Assessment: 1. Acute kidney injury likely from outlet obstruction rule out urinary tract infection although urine analysis does not have any WBCs but has blood RBCs and bacteria. Creatinine on admission yesterday was 5.53 and is 5.8 today He is making fair amount of urine. Ultrasound shows 13.2 cm right kidney left kidney is not well visualized, hydronephrosis was noted bilaterally 2. Possible congestive heart failure. 3. Irregular heart beat although EKG shows normal sinus rhythm yesterday. Maintained on Cardizem drip. Being followed by cardiology and patient will be switched to oral Cardizem. 4. Dementia 5. Altered mentation most likely related to worsening renal function Plan: If renal function does not improve in the next 24-48 hours patient will need to start renal replacement therapy. Consult urology.
--- NOTE | 2022-03-17 13:42 | XR ---
EXAMINATION TYPE: XR abdomen 1V DATE OF EXAM: 03/17/2022 COMPARISON: NONE HISTORY: Abdominal pain TECHNIQUE: Supine view of the abdomen was obtained with 3 radiographs. FINDINGS: Small bowel demonstrates no evidence for dilatation or air fluid levels. Gas and fecal material is seen in the distended colon. No convincing evidence for pneumoperitoneum. Multiple pelvic phleboliths. The lung bases are clear. The osseous structures are intact. Multilevel degenerative disc disease of the lumbar spine. IMPRESSION: Mildly distended colon with moderate amount of stool present throughout the colon and rectum. Correla te for constipation.
--- NOTE | 2022-03-17 14:42 | P.CRDCN ---
History of Present Illness Consult date: 03/17/22 Consult reason: atrial fibrillation (with RVR) History of present illness: History of present illness: This is a 76 year old male patient with no previous cardiac history, does not follow with cleaner signs. Patient has a past medical history of Alzheimer's dementia, TIA, osteoarthritis. Patient is normally oriented 2. He has been homebound for the past year. Patient presented with worsening mental status changes noted was found to have acute kidney injury and bilateral hydronephrosis. Patient is also been treated for urinary tract infection. We've been asked to see the patient for A. fib with RVR around midnight last evening. Ventricular rate was in the 150s to 160s. Patient was started on Cardizem drip and heparin drip. Patient has converted to a sinus rhythm in the 90s EKG #1 A. fib with RVR #2 sinus rhythm Chest x-ray cardiomegaly with mild pulmonary vascular congestion BNP 1930, TSH 5.2, BUN 73 and creatinine 5.4 Home cardiac medications include Lipitor. Review Of Systems: At the time of my evaluation: Unable to obtain due to patient's confusion Physical examination: Gen: This is a 76-year-old obese occasional male. He is resting in bed and appears to be comfortable. No acute distress VS: reviewed HEENT: Head is atraumatic, normocephalic. Pupils equal, round. Sclerae is anicteric. Oral mucous membranes very dry NECK: Supple. No JVD. No lymphadenopathy. No thyromegaly. LUNGS: Clear to auscultation. No wheezes or rhonchi. No intercostal retractions. HEART: Regular rate and rhythm. ABDOMEN: Soft. No tenderness. EXTREMITIES: No pedal edema. No calf tenderness. NEUROLOGICAL: Patient is awake, confused. Assessment: New onset of paroxysmal atrial fibrillation with RVR, currently in a sinus rhythm Acute kidney injury Bilateral hydronephrosis Alzheimer's dementia Plan: Discontinue Cardizem drip Start patient on Toprol-XL 50 mg daily Further recommendations to follow based upon clinical course Thank you kindly for this consultation. Nurse practitioner note has been reviewed, I agree with documented findings and plan of care. Patient was seen and examined. Past Medical History Past Medical History: COPD, CVA/TIA, Osteoarthritis (OA) Additional Past Medical History / Comment(s): knees-arthritis, mini stroke last June. History of Any Multi-Drug Resistant Organisms: None Reported Past Surgical History: Cholecystectomy Additional Past Surgical History / Comment(s): knee surg. Past Anesthesia/Blood Transfusion Reactions: No Reported Reaction Past Psychological History: No Psychological Hx Reported Additional Psychological History / Comment(s): Was very agitated when I spoke with him on the phone. Smoking Status: Never smoker Past Alcohol Use History: Rare Past Drug Use History: Marijuana Additional Drug Use History / Comment(s): rare use - Past Family History Mother Family Medical History: No Reported History Father Family Medical History: Renal Disease Brother(s) Family Medical History: Congestive Heart Failure (CHF) Sister(s) Family Medical History: Cancer Daughter(s) Family Medical History: No Reported History Medications and Allergies Home Medications Medication Instructions Recorded Confirmed Type Albuterol Inhaler [Ventolin Hfa 2 puff INHALATION RT-Q6H PRN 08/21/16 03/15/22 History Inhaler] Memantine [Namenda] 10 mg PO BID 09/24/17 03/15/22 History Tamsulosin HCl [Flomax] 0.4 mg PO BID 09/24/17 03/15/22 History Atorvastatin [Lipitor] 10 mg PO DAILY 03/15/22 03/15/22 History Cholecalciferol [Vitamin D3 (25 50 mcg PO DAILY 03/15/22 03/15/22 History Mcg = 1000 Iu)] Furosemide [Lasix] 40 mg PO BID 03/15/22 03/15/22 History Glycopyrrolate [Robinul Forte] 2 mg PO TID 03/15/22 03/15/22 History Potassium Chloride [Klor-Con M20] 20 meq PO DAILY 03/15/22 03/15/22 History Sertraline [Zoloft] 50 mg PO DAILY 03/15/22 03/15/22 History Umeclidinium [place] [Incruse 1 puff INHALATION RT-DAILY 03/15/22 03/15/22 History Ellipta] Allergies Allergy/AdvReac Type Severity Reaction Status Date / Time No Known Allergies Allergy Verified 03/15/22 15:33 Physical Exam Vitals: Vital Signs Temp Pulse Pulse Resp BP Pulse Ox 03/17/22 03:49 111 H 17 140/69 96 03/17/22 01:20 109/58 03/17/22 00:50 100/56 03/17/22 00:40 150 H 18 128/68 95 03/17/22 00:18 153 H 116/63 96 03/16/22 23:49 153 H 97/54 03/16/22 23:30 168 H 119/72 96 03/16/22 21:09 90 03/16/22 20:58 88 03/16/22 18:55 98.6 F 102 H 19 135/68 95 03/16/22 15:28 90 03/16/22 15:17 95 03/16/22 13:47 99.1 F 50 L 17 124/66 95 03/16/22 11:36 78 03/16/22 11:28 78 164 H 22 110/61 95 03/16/22 11:25 98 03/16/22 11:08 95 24 131/72 98 Intake and Output 03/16/22 03/17/22 03/17/22 22:59 06:59 14:59 Output Total 1100 700 Balance -1100 -700 Output: Urine 1100 700 Other: Voiding Method Indwelling Catheter Indwelling Catheter # Bowel Movements 0 Weight 137 kg Results 03/17/22 05:54 03/17/22 05:54 Coagulation 03/17/22 03/17/22 Range/Units 00:12 05:54 PT 12.0 11.3 (9.0-12.0) sec APTT 84.1 H 42.7 H (22.0-30.0) sec CBC 03/17/22 Range/Units 05:54 WBC 15.9 H (3.8-10.6) k/uL RBC 4.67 (4.30-5.90) m/uL Hgb 12.8 L (13.0-17.5) gm/dL Hct 40.2 (39.0-53.0) % Plt Count 304 (150-450) k/uL Current Medications Generic Name Dose Route Start Last Admin Trade Name Freq PRN Reason Stop Dose Admin Hydrocodone Bitart/Acetaminophen 1 each 03/15/22 19:32 03/17/22 03:43 Hydrocodone/Apap 5-325mg 1 Each Tab PO 1 each Q8HR PRN Administration Pain Albuterol Sulfate 2.5 mg 03/15/22 16:02 Albuterol Nebulized 2.5 Mg/3 Ml INHALATION RT-Q6H PRN Shortness Of Breath Atorvastatin Calcium 10 mg 03/15/22 21:00 03/16/22 20:21 Atorvastatin 10 Mg Tab PO 10 mg HS ZONIA Administration Cholecalciferol 50 mcg 03/16/22 09:00 03/16/22 09:01 Cholecalciferol 25 Mcg (1000 Iu) Tablet PO Not Given DAILY ZONIA Famotidine 20 mg 03/15/22 21:00 03/16/22 20:21 Famotidine 20 Mg Tab PO 20 mg HS ZONIA Administration Heparin Sodium (Porcine) 0 unit 03/16/22 23:50 Heparin Sodium 1,000 Un/Ml (10ml Vl) IV PER PROTOCOL PRN Low PTT Protocol Ceftriaxone Sodium 1 gm/ 50 mls @ 100 mls/hr 03/16/22 12:15 03/16/22 13:01 Sodium Chloride IVPB 100 mls/hr Q24HR ZONIA Administration Protocol Heparin Sodium/Sodium Chloride 250 mls @ 10 mls/hr 03/16/22 23:45 03/17/22 00:03 25,000 unit/ Sodium Chloride IV 7.3487 units/kg/hr .Q24H ZONIA 10 mls/hr Administration Protocol 7.3487 UNITS/KG/HR Diltiazem HCl 125 mg/ Sodium 125 mls @ 5 mls/hr 03/17/22 00:15 03/17/22 00:22 Chloride IV 5 mg/hr .Q24H ZONIA 5 mls/hr Administration 5 MG/HR Ipratropium [place] 0.5 mg 03/16/22 08:00 03/16/22 20:58 Ipratropium 0.5 Mg/2.5 Ml Nebu INHALATION 0.5 mg RT-QID ZONIA Administration Memantine 5 mg 03/16/22 09:00 03/16/22 20:21 Memantine 5 Mg Tab PO 5 mg BID ZONIA Administration Naloxone HCl 0.2 mg 03/15/22 15:38 Naloxone 0.4 Mg/Ml 1 Ml Vial IV Q2M PRN Opioid Reversal Sertraline HCl 50 mg 03/15/22 16:15 03/16/22 09:00 Sertraline 50 Mg Tab PO 50 mg DAILY ZONIA Administration Tamsulosin HCl 0.4 mg 03/15/22 21:00 03/16/22 20:21 Tamsulosin 0.4 Mg Cap.Er.24h PO 0.4 mg BID ZONIA Administration Trazodone HCl 25 mg 03/15/22 19:32 03/15/22 21:39 Trazodone Hcl 50 Mg Tab PO 25 mg HS PRN Administration Agitation Intake and Output 03/16/22 03/17/22 03/17/22 22:59 06:59 14:59 Output Total 1100 700 Balance -1100 -700 Output: Urine 1100 700 Other: Voiding Method Indwelling Catheter Indwelling Catheter # Bowel Movements 0 Weight 137 kg 03/17/22 05:54 03/16/22 06:07
[2022-03-17] MEDS ORDERED: IPRATROPIUM-ALBUTEROL 3 ML NEB INHALATION PRN (15:02)
--- NOTE | 2022-03-17 15:07 | P.PN ---
Subjective Progress Note Date: 03/17/22 70-year-old male was brought in because of altered mental status patient has been not been himself. Patient does have Alzheimer's dementia history. Patient is any fever chills patient had nausea vomiting. Patient the is alert oriented 2. Patient appears to have advanced dementia at baseline from the history obtained from his significant other. Patient is found to be in acute renal failure with a limited be enough 73 and creatinine of 5.53. Patient baseline is within normal limits. Patient does take Lasix at home doesn't have any history of His Heart Failure. Patient Is Obese Probably Taking His Lasix for Peripheral Edema. 03/16/2022 Patient is evaluated today resting in bed with his significant other at the bedside. She is concerned with his mentation, he appears encephalopathic. There is no focal weakness noted on exam. He is following commands however he is significantly weak. He has been followed by Dr. Selvin huynh who has been coming to the house to see him, he has not been out of the house in the last year and his significant other has been caring for him. Currently he is requiring 2L of oxygen via nasal cannula. He had abdomen/bladder ultrasound completed showing eveidence for bilateral hydronephrosis and indwelling catheter was placed. His creatinine today is stable and not improved currently 5.40 today and nephrology is consulted. His labs otherwise are essentially normal. He was receiving IV fluids initially for the kidney injury however he had chest xray done as he does appear to be short of breath which his xray is showing cardiomegaly and mild pulmonary vascular congestion possible CHF. He is currently on 2 to 3L of oxygen, afebrile, heart rate 78 and blood pressure 131/72. 03/17/2022 Patient is evaluated today on stepdown unit. He has worsening confusion and is pulling off his oxygen. He has audible wheezing noted. He had went into atrial fibrillation with rapid ventricular rate of 150-170s he received a dose of oral metoprolol and he was started on IV heparin and IV cardizem and moved from the general medical floor. His echocardiogram is currently pending. This morning he continues in atrial fibrillation however his heart rate is better controlled in the 80s. He had continued to complain of abdominal pain overnight. The nurse was advised to attempt to advance the indwelling catheter and also the hernandez was irrigated with reports of a clot that was passed. Patient has had about 1.8 L of urine output overnight. He had received a dose of IV lasix yesterday per nephrology. His creatinine has increased up to 5.88. White count of 15.9 today. Review of Systems Difficult to complete ros as patient is lethargic today. All inpatient medications were reviewed and appropriate changes in these medications as dictated in the interval history and assessment and plan. PHYSICAL EXAMINATION: GENERAL: The patient is alert and oriented x0, Currently on 3L nasal cannula. Obese. HEENT: Pupils are round and equally reacting to light. EOMI. No scleral icterus. No conjunctival pallor. Normocephalic, atraumatic. No pharyngeal erythema. No thyromegaly. CARDIOVASCULAR: S1 and S2 present. No murmurs, rubs, or gallops. PULMONARY: Scattered expiratory wheezing. ABDOMEN: Soft, nontender, nondistended, normoactive bowel sounds. No palpable organomegaly. MUSCULOSKELETAL: No joint swelling or deformity. EXTREMITIES: No cyanosis, clubbing, or pedal edema. Mild peripheral edema. NEUROLOGICAL: Generalized weakness, drowsy. SKIN: No rashes. Assessment and plan -Acute renal failure: patient was found to have obstructive uropathy with bilate ral hydronephrosis and indwelling catheter was placed. Creatinine is up to 5.88 today. -Acute hypoxic respiratory failure most likely from CHF exacerbation received a dose of IV lasix and continues on 2-3L of oxygen. -Altered mental status likely from metabolic encephalopathy from VINAY with component of dementia -Dementia, Alzheimers type: Patient's CT although showed some chronic small vessel ischemic changes as well have a competent of vascular dementia patient appears to have advanced dementia, supportive care physical therapy and occupational therapy evaluation -Abdominal pain likely from constipation. -History of for CVAs TIAs in the past -COPD with acute exacerbation patient has some scattered wheezing. -Hyperlipidemia -Depression -Benign prostatic hypertrophy for which patient is on tamsulosin DVT prophylaxis: IV heparin GI prophylaxis: Pepcid Full Code Plan Nephrology is following the patient closely. He continues indwelling catheter in place. Echocardiogram is pending at this time. Patient has been started on empiric antibiotics with IV ceftriaxone. Urine culture is pending, blood culture is pending. Cardiology will be placing patient on oral cardizem. He continues on IV heparin. Administer enema for constipation found on xray. Continue all other supportive care and also physical therapy and occupational therapy will be consulted. Recommend also for bedside swallow evaluation and caution with oral intake until his mentation improves. Consider speech therapy evaluation also. The impression and plan of care has been dictated by Leena Sal, Nurse Practitioner as directed. Dr. Josias MD I have performed a history and physical examination and medical decision making of this patient, discussed the same with the dictator, and agree with the dictators assessment and plan as written, documented as a scribe. Based on total visit time, I have performed more than 50% of this visit. Objective - Vital Signs Vital signs: Vital Signs Temp 98.3 F 03/17/22 08:20 Pulse 84 03/17/22 09:18 Resp 20 03/17/22 08:20 BP 129/67 03/17/22 08:20 Pulse Ox 88 L 03/17/22 08:20 FiO2 Intake & Output 03/16/22 03/17/22 03/17/22 18:59 06:59 18:59 Intake Total 83.333 Output Total 1100 700 Balance -1100 -700 83.333 Weight 137 kg Intake: Intake, IV Titration 83.333 Amount Heparin Sod,Pork in 0.45% 83.333 NaCl 25,000 unit In 0.45 % NaCl 1 250ml.bag @ 7. 3487 UNITS/KG/HR 10 mls/ hr IV .Q24H [facility]ONIA Rx#: [id number] Output: Urine 1100 700 Other: Voiding Method Indwelling Catheter Indwelling Catheter # Bowel Movements 0 - Labs CBC & Chem 7: 03/17/22 05:54 03/17/22 05:54 Labs: Abnormal Lab Results - Last 24 Hours (Table) 03/16/22 03/17/22 03/17/22 Range/Units 18:50 00:12 05:54 WBC (3.8-10.6) k/uL Hgb (13.0-17.5) gm/dL Neutrophils # (1.3-7.7) k/uL INR 1.2 H (<1.2) APTT 84.1 H 42.7 H (22.0-30.0) sec BUN (9-20) mg/dL Creatinine (0.66-1.25) mg/dL Glucose (74-99) mg/dL Calcium (8.4-10.2) mg/dL Procalcitonin 0.62 H (0.02-0.09) ng/mL 03/17/22 03/17/22 Range/Units 05:54 05:54 WBC 15.9 H (3.8-10.6) k/uL Hgb 12.8 L (13.0-17.5) gm/dL Neutrophils # 13.7 H (1.3-7.7) k/uL INR (<1.2) APTT (22.0-30.0) sec BUN 71 H (9-20) mg/dL Creatinine 5.88 H (0.66-1.25) mg/dL Glucose 133 H (74-99) mg/dL Calcium 8.3 L (8.4-10.2) mg/dL Procalcitonin (0.02-0.09) ng/mL Microbiology - Last 24 Hours (Table) 03/16/22 12:24 Urine Culture - Preliminary Urine,Clean Catch Assessment and Plan Time with Patient: Greater than 30
[2022-03-17] MEDS: METOPROLOL SUCCINATE (ER) 50 MG TAB.ER.24H PO SCH (15:42)
[2022-03-17] MEDS: IPRATROPIUM-ALBUTEROL 3 ML NEB INHALATION SCH ×2 (16:11→19:56)
--- NOTE | 2022-03-17 17:39 | CA ---
Transthoracic Echo Report Name: Mir Delgado Age: 76 Gender: M : 1945 Exam Date: 03/17/2022 13:53 Exam Location: [place] [facility] Ht (in): 69 Wt (lb): 302 Ordering Physician: Leena Sal Attending/Referring Phys: Doron ESTRADA Rivet Spinner Batsheva Perez, SAMUEL Procedure CPT: Indications: chf Cardiac Hx: Morbid Obesity Technical Quality: Contrast 1: Total Dose (mL): Contrast 2: Total Dose (mL): MEASUREMENTS (Male / Female) Normal Values 2D ECHO LV Diastolic Diameter PLAX 4.8 cm 4.2 - 5.9 / 3.9 - 5.3 cm LV Systolic Diameter PLAX 3.0 cm IVS Diastolic Thickness 1.1 cm 0.6 - 1.0 / 0.6 - 0.9 cm LVPW Diastolic Thickness 1.2 cm 0.6 - 1.0 / 0.6 - 0.9 cm LV Relative Wall Thickness 0.5 RV Internal Dim ED PLAX 3.0 cm FINDINGS Left Ventricle Left ventricular ejection fraction is estimated at 55 %. Left ventricular cavity size normal. Right Ventricle Normal right ventricular size and function. Right Atrium Right atrium not well visualized. Left Atrium Left atrium not well visualized. Mitral Valve Mitral valve not well visualized. Aortic Valve Aortic valve not well visualized. Tricuspid Valve Tricuspid valve not well visualized. Pulmonic Valve Pulmonic valve not well visualized. Pericardium Aorta CONCLUSIONS Normal LV size and systolic function Previewed by: Dr. Slava Graves MD (Electronically Signed) Final Date: 17 March 2022 17:38
[2022-03-17] MEDS: FAMOTIDINE 20 MG TAB PO SCH (21:43)
[2022-03-17] MEDS: ATORVASTATIN 10 MG TAB PO SCH (21:43)
[2022-03-18 08:29] LABS: Basophils % (A) 0 %; Eosinophils # (A) 0.3 k/uL (0-0.7); Eosinophils % (A) 3 %; HCT 37.3 % (39.0-53.0); HGB 12.3 gm/dL (13.0-17.5); Lymphocytes # (A) 1.4 k/uL (1.0-4.8); Lymphocytes % (A) 13 %; MCH 28.5 pg (25.0-35.0); MCV 86.5 fL (80.0-100.0); Mean Platelet Volume 7.9; Monocytes # (A) 0.6 k/uL (0-1.0); Monocytes % (A) 6 %; Neutrophils # (A) 8.2 k/uL (1.3-7.7); Neutrophils % (A) 77 %; Platelet Count 305 k/uL (150-450); RBC 4.32 m/uL (4.30-5.90); WBC 10.7 k/uL (3.8-10.6)
[2022-03-18] MEDS: IPRATROPIUM-ALBUTEROL 3 ML NEB INHALATION SCH ×4 (09:21→20:08)
[2022-03-18] MEDS: MEMANTINE 5 MG TAB PO SCH ×2 (09:22→21:34)
[2022-03-18] MEDS: METOPROLOL SUCCINATE (ER) 50 MG TAB.ER.24H PO SCH (09:22)
[2022-03-18] MEDS: TAMSULOSIN 0.4 MG CAP.ER.24H PO SCH ×2 (09:22→21:34)
[2022-03-18] MEDS: HEPARIN SOD,PORK IN 0.45% NACL 25,000 UNIT in 0.45% NACL 1 250ML.BAG IV SCH ×2 (09:22→21:34)
[2022-03-18] MEDS: CHOLECALCIFEROL 25 MCG (1000 IU) TABLET PO SCH (09:22)
[2022-03-18] MEDS: SERTRALINE 50 MG TAB PO SCH (09:22)
[2022-03-18 10:22] LABS: Potassium 3.2 mmol/L (3.5-5.1)
[2022-03-18] MEDS ORDERED: SODIUM ZIRCONIUM CYCLOSILICATE 10 GM PACKET PO ONE (11:38)
--- NOTE | 2022-03-18 12:44 | P.PN ---
Subjective Patient is seen for follow-up for acute kidney injury. Admitted with a serum creatinine of about 5.5 which increased to 5.8 today. Previous creatinine 0.9 on 08/05/2021. Ultrasound shows evidence of bilateral hydronephrosis. Patient currently has an indwelling Henry catheter which was flushed last night. Poor urine output documented. A bladder scan at bedside showed more than 900 ML of urine and a new Henry catheter is currently being placed. Serum creatinine has decreased from 5.8-3.0 today. Mentation has also improved today. Objective - Vital Signs Vital signs: Vital Signs Temp 98.2 F 03/18/22 09:05 Pulse 100 03/18/22 09:05 Resp 20 03/18/22 09:05 BP 109/73 03/18/22 09:05 Pulse Ox 95 03/18/22 09:05 FiO2 Intake & Output 03/17/22 03/18/22 03/18/22 18:59 06:59 18:59 Intake Total 983.316 103.597 186.878 Output Total 900 2200 Balance 983.316 -796.403 -2013.122 Intake: Intake, IV Titration 263.316 103.597 186.878 Amount Diltiazem 125 mg In 35 Sodium Chloride 0.9% 100 ml @ 7.5 MG/HR 7.5 mls/hr IV .[id number] [facility]ONIA Rx#: [id number] Heparin Sod,Pork in 0.45% 178.316 103.597 186.878 NaCl 25,000 unit In 0.45 % NaCl 1 250ml.bag @ 7. 3487 UNITS/KG/HR 10 mls/ hr IV .Q24H [facility]ONIA Rx#: [id number] cefTRIAXone 1 gm In 50 Sodium Chloride 0.9% 50 ml @ 100 mls/hr IVPB Q24HR [facility]ONIA Rx#:[id number] Oral 720 Output: Urine 900 2200 Uretheral (Henry) 300 1650 Other: Voiding Method Indwelling Catheter Indwelling Catheter Indwelling Catheter # Bowel Movements 1 - Exam Awake, comfortable, no acute distress. Does not communicate much however he was communicating with the respiratory therapist. Examination of the heart S1 and S2 Examination lungs decreased breath sounds at the bases Abdomen is soft distended obese, nontender Examination lower extremity shows chronic skin changes, trace edema No asterixis noted. - Labs CBC & Chem 7: 03/18/22 08:08 03/18/22 08:08 Labs: Abnormal Lab Results - Last 24 Hours (Table) 03/17/22 03/18/22 03/18/22 Range/Units 14:50 08:08 08:08 WBC 10.7 H (3.8-10.6) k/uL Hgb 12.3 L (13.0-17.5) gm/dL Hct 37.3 L (39.0-53.0) % Neutrophils # 8.2 H (1.3-7.7) k/uL APTT 41.6 H (22.0-30.0) sec Potassium 3.2 L (3.5-5.1) mmol/L BUN 55 H (9-20) mg/dL Creatinine 3.00 H (0.66-1.25) mg/dL Glucose 107 H (74-99) mg/dL Calcium 8.0 L (8.4-10.2) mg/dL 03/18/22 Range/Units 08:08 WBC (3.8-10.6) k/uL Hgb (13.0-17.5) gm/dL Hct (39.0-53.0) % Neutrophils # (1.3-7.7) k/uL APTT 66.1 H (22.0-30.0) sec Potassium (3.5-5.1) mmol/L BUN (9-20) mg/dL Creatinine (0.66-1.25) mg/dL Glucose (74-99) mg/dL Calcium (8.4-10.2) mg/dL Microbiology - Last 24 Hours (Table) 03/16/22 12:24 Urine Culture - Preliminary Urine,Clean Catch Presumptive Staph aureus Assessment and Plan Assessment: 1. Acute kidney injury likely from outlet obstruction rule out urinary tract infection although urine analysis does not have any WBCs but has blood RBCs and bacteria. Creatinine has improved from about 5.8-3.0 today. Bladder scan showed about 1 L of urine and a new Henry catheter will be placed. Ultrasound shows 13.2 cm right kidney left kidney is not well visualized, hydronephrosis was noted bilaterally. Urology consulted. 2. Possible congestive heart failure. 3. Irregular heart beat although EKG shows normal sinus rhythm yesterday. Maintained on Cardizem drip. Being followed by cardiology and patient will be switched to oral Cardizem. 4. Dementia 5. Altered mentation most likely related to some degree of uremia, currently improved Plan: Agree with changing Henry catheter Repeat labs in a.m. Replace potassium Encourage increased oral intake
[2022-03-18] MEDS ORDERED: POTASSIUM CHLORIDE ER 20 MEQ TAB.ER PO STA (12:45)
[2022-03-18] MEDS: ACETAMINOPHEN TAB 325 MG TAB PO PRN (13:32)
--- NOTE | 2022-03-18 13:46 | P.PN ---
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 Patient has a past medical history of Alzheimer's dementia, TIA, osteoarthritis. Patient is normally oriented 2. He has been homebound for the past year. Patient presented with worsening mental status changes noted was found to have acute kidney injury and bilateral hy dronephrosis. Patient is also been treated for urinary tract infection. We've been asked to see the patient for A. fib with RVR around midnight last evening. Ventricular rate was in the 150s to 160s. Patient was started on Cardizem drip and heparin drip. Patient has converted to a sinus rhythm in the 90s EKG #1 A. fib with RVR #2 sinus rhythm Chest x-ray cardiomegaly with mild pulmonary vascular congestion BNP 1930, TSH 5.2, BUN 73 and creatinine 5.4 Home cardiac medications include Lipitor. 03/18 Patient remains confused. Patient has Henry catheter in place that there was no urine output. Henry was obstructed and has been subsequently replaced. We are keeping patient on heparin drip 1 more day due to renal failure and possible need for dialysis catheter placement. Repeat blood work reveals hemoglobin of 12.3. Potassium 3.2 and has been replaced. BUN 55 and creatinine 3. Physical examination: Gen: This is a 76-year-old obese occasional male. He is resting in bed and appe ars to be comfortable. No acute distress VS: reviewed HEENT: Head is atraumatic, normocephalic. Pupils equal, round. Sclerae is anicteric. Oral mucous membranes very dry LUNGS: Clear to auscultation. No wheezes or rhonchi. No intercostal retractions. HEART: Regular rate and rhythm. EXTREMITIES: No pedal edema. No calf tenderness. NEUROLOGICAL: Patient is awake, confused. Assessment: New onset of paroxysmal atrial fibrillation with RVR Acute kidney injury Bilateral hydronephrosis Alzheimer's dementia Plan: Continue patient on Toprol-XL 50 mg daily Continue heparin drip for another 24 hours then transitioned to oral agent if patient is not requiring dialysis catheter Further recommendations to follow based upon clinical course Nurse practitioner note has been reviewed, I agree with documented findings and plan of care. Patient was seen and examined. Objective - Vital Signs Vital signs: Vital Signs Temp 97.8 F 01/17/23 12:00 Pulse 91 03/18/22 12:00 Resp 18 03/18/22 12:00 BP 131/79 03/18/22 12:00 Pulse Ox 97 03/18/22 12:00 FiO2 Intake & Output 03/17/22 03/18/22 03/18/22 18:59 06:59 18:59 Intake Total 983.316 103.597 186.878 Output Total 900 2200 Balance 983.316 -796.403 -122 Intake: Intake, IV Titration 263.316 103.597 186.878 Amount Diltiazem 125 mg In 35 Sodium Chloride 0.9% 100 ml @ 7.5 MG/HR 7.5 mls/hr IV .[id number] [facility]ON[facility] Rx#: [id number] Heparin Sod,Pork in 0.45% 178.316 103.597 186.878 NaCl 25,000 unit In 0.45 % NaCl 1 250ml.bag @ 7. 3487 UNITS/KG/HR 10 mls/ hr IV .Q24H [facility]ON[facility] Rx#: [id number] cefTRIAXone 1 gm In 50 Sodium Chloride 0.9% 50 ml @ 100 mls/hr IVPB Q24HR [facility]ON[facility] Rx#:[id number] Oral 720 Output: Urine 900 2200 Uretheral (Henry) 300 1650 Other: Voiding Method Indwelling Catheter Indwelling Catheter Indwelling Catheter # Bowel Movements 1 - Labs CBC & Chem 7: 03/18/22 08:08 03/18/22 08:08 Labs: Abnormal Lab Results - Last 24 Hours (Table) 03/17/22 03/18/22 03/18/22 Range/Units 14:50 08:08 08:08 WBC 10.7 H (3.8-10.6) k/uL Hgb 12.3 L (13.0-17.5) gm/dL Hct 37.3 L (39.0-53.0) % Neutrophils # 8.2 H (1.3-7.7) k/uL APTT 41.6 H (22.0-30.0) sec Potassium 3.2 L (3.5-5.1) mmol/L BUN 55 H (9-20) mg/dL Creatinine 3.00 H (0.66-1.25) mg/dL Glucose 107 H (74-99) mg/dL Calcium 8.0 L (8.4-10.2) mg/dL 03/18/22 Range/Units 08:08 WBC (3.8-10.6) k/uL Hgb (13.0-17.5) gm/dL Hct (39.0-53.0) % Neutrophils # (1.3-7.7) k/uL APTT 66.1 H (22.0-30.0) sec Potassium (3.5-5.1) mmol/L BUN (9-20) mg/dL Creatinine (0.66-1.25) mg/dL Glucose (74-99) mg/dL Calcium (8.4-10.2) mg/dL Microbiology - Last 24 Hours (Table) 03/17/22 10:14 Blood Culture - Preliminary Blood No Growth after 24 hours 03/16/22 12:24 Urine Culture - Preliminary Urine,Clean Catch Presumptive Staph aureus
--- NOTE | 2022-03-18 14:53 | CDI ---
Documentation Clarification Form Date: 03/18/2022 2:36:05 PM From: Cecily Gaspar CCS, CCDS Admit Date: 03/15/2022 3:38:00 PM Patient Name: Mir Delgado Visit Number: [id number] Discharge Date: ATTENTION: The Clinical Documentation Specialists (CDI) and [facility] Coding Staff appreciate your assistance in clarifying documentation. Please respond to the clarification below the line at the bottom and electronically sign. The CDI & [facility] Coding staff will review the response and follow-up if needed. Please note: Queries are made part of the Legal Health Record. If you have any questions, please contact the author of this message via ITS. Dr. Jose Blakely: Heart Failure is documented in 03/16 Nephrology Consult: Possible Congestive Heart Failure. Given one dose of IV Lasix 20 mg. Per the 03/15 H/P: Patient does take Lasix at home but has no history of CHF, probably takes Lasix for peripheral edema. Has no cyanosis, clubbing or pedal edema of extremities. 03/16 Attending Progress Note: Has mild peripheral edema. Per the 03/17 Attending Physician Progress Note: Acute hypoxic respiratory failure most likely from CHF exacerbation, received a dose of Lasix & continues on 2-3L O2. Additional information regarding the Type & Acuity of CHF is requested. History/Risk Factors per the 03/15 H/P: Alzheimer's dementia, Obese (BMI 44.6), COPD, TIA, OA, Osteoarthritis bilateral knees. Clinical Indicators: Presented to the ED on 03/15 via EMS with Weakness and Altered Mental Status. Admit with VINAY. 03/15 VS: T 97.4, P 72, R 22, BP 146/83, PO 98 2Lnc, BMI: 44.6. 03/16 VS: T 99.1, P 78, R 22, BP 110/61, PO 95 3Lnc 03/15 Blood Gas (VBG): PH 7.22, pCO2 62, HCO3 32 03/15 LAB: CO2 31, BUN 73, Creatinine 5.53, Glucose 118, Phosphorus 6.8, Magnesium 2.4 03/16 BNP: 1930 03/15 CXR: There is no heart failure. 03/16 CXR: Correlate with BNP for CHF. 03/17 ECHO (Indication: CHF): EF 55%, Normal LV size & systolic function. Treatment 03/15: Telemetry, Henry catheter placed, O2 2-3Lnc, IV Na Chloride 1,0000 mls @ 999 mls/hr q1H, INH Ventolin 2.5 mg q6H/prn. 03/16: O2 3Lnc, IV Lasix 20 mg x1. In your professional opinion, can you please clarify the Acuity & Type of CHF if known? [ ] Acute Diastolic Heart Failure [ ] Chronic Diastolic Heart Failure [ ] Acute on Chronic Diastolic Heart Failure [ ] CHF ruled out [ ] Other, please specify [ ] Unable to determine (Template Last Revised: April 2020) MTDD
[2022-03-18] MEDS ORDERED: LACTULOSE 20 GM/30 ML CUP PO PRN (15:25)
[2022-03-18] MEDS ORDERED: LACTULOSE 20 GM/30 ML CUP PO ONE (15:30)
--- NOTE | 2022-03-18 15:37 | P.PN ---
Subjective Progress Note Date: 03/18/22 70-year-old male was brought in because of altered mental status patient has been not been himself. Patient does have Alzheimer's dementia history. Patient is any fever chills patient had nausea vomiting. Patient the is alert oriented 2. Patient appears to have advanced dementia at baseline from the history obtained from his significant other. Patient is found to be in acute renal failure with a limited be enough 73 and creatinine of 5.53. Patient baseline is within normal limits. Patient does take Lasix at home doesn't have any history of His Heart Failure. Patient Is Obese Probably Taking His Lasix for Peripheral Edema. 03/16/2022 Patient is evaluated today resting in bed with his significant other at the bedside. She is concerned with his mentation, he appears encephalopathic. There is no focal weakness noted on exam. He is following commands however he is significantly weak. He has been followed by Dr. Selvin huynh who has been coming to the house to see him, he has not been out of the house in the last year and his significant other has been caring for him. Currently he is requiring 2L of oxygen via nasal cannula. He had abdomen/bladder ultrasound completed showing eveidence for bilateral hydronephrosis and indwelling catheter was placed. His creatinine today is stable and not improved currently 5.40 today and nephrology is consulted. His labs otherwise are essentially normal. He was receiving IV fluids initially for the kidney injury however he had chest xray done as he does appear to be short of breath which his xray is showing cardiomegaly and mild pulmonary vascular congestion possible CHF. He is currently on 2 to 3L of oxygen, afebrile, heart rate 78 and blood pressure 131/72. 03/17/2022 Patient is evaluated today on stepdown unit. He has worsening confusion and is pulling off his oxygen. He has audible wheezing noted. He had went into atrial fibrillation with rapid ventricular rate of 150-170s he received a dose of oral metoprolol and he was started on IV heparin and IV cardizem and moved from the general medical floor. His echocardiogram is currently pending. This morning he continues in atrial fibrillation however his heart rate is better controlled in the 80s. He had continued to complain of abdominal pain overnight. The nurse was advised to attempt to advance the indwelling catheter and also the hernandez was irrigated with reports of a clot that was passed. Patient has had about 1.8 L of urine output overnight. He had received a dose of IV lasix yesterday per nephrology. His creatinine has increased up to 5.88. White count of 15.9 today. 03/18/2022 Patient is evaluated today resting in bed. He is currently alert x 3 with moments of confusion. He has continued with indwelling catheter overnight and has had urine output of 2.850 L. His kidney function has improved today, BUN 55, creatinine 3.00. Sodium remains stable at 141, potassium 3.2. He has noted gross hematuria noted in tubing and hernandez bag likely due to trauma from patient tugging on the catheter. Recommend to advance to catheter and monitor for resolution of hematuria. He has abdominal xray completed secondary to significant complaints of abdominal pain with suspicion of constipation which xray did reveal mildly distended colon with moderate amount of stool present throughout colon and rectum showing constipation. This could be contributing to urinary retention. He was given a soapsuds enema yesterday with small BM. He will be given a dose of lactulose today and can repeat enema. Echocardiogram shows normal LV size and systolic function. Urine culture showing presumptive staph aureus with blood culture pending. He is clinically improving on IV ceftriaxone and will continue with this antibiotic pending finalized urine cultures. Current labs showing white count of 10.7 which is improving. Remains afebrile, heart rate 91, blood pressure 131/79, 97% on 2L nasal cannula. Review of Systems Constitutional: Denied any fatigue denied any fever. Cardio vascular: denied any chest pain, palpitations Gastrointestinal: denied any nausea, vomiting, diarrhea Pulmonary: Denied any shortness of breath cough Neurologic denied any new focal deficits All inpatient medications were reviewed and appropriate changes in these medications as dictated in the interval history and assessment and plan. PHYSICAL EXAMINATION: GENERAL: The patient is alert and oriented x3, with moments of confusion Currently on 2L nasal cannula. Obese. HEENT: Pupils are round and equally reacting to light. EOMI. No scleral icterus. No conjunctival pallor. Normocephalic, atraumatic. No pharyngeal erythema. No thyromegaly. CARDIOVASCULAR: S1 and S2 present. No murmurs, rubs, or gallops. PULMONARY: Scattered expiratory wheezing with improved aeration. ABDOMEN: Soft, nontender, distended, normoactive bowel sounds. No palpable organomegaly. MUSCULOSKELETAL: No joint swelling or deformity. EXTREMITIES: No cyanosis, clubbing, or pedal edema. Mild peripheral edema. NEUROLOGICAL: Generalized weakness, drowsy. SKIN: No rashes. Assessment and plan -Acute renal failure: patient was found to have obstructive uropathy with bilateral hydronephrosis and indwelling catheter was placed. Creatinine has improved to 3.00 -Acute hypoxic respiratory failure from mild COPD exacberation, and volume overload. His echocardiogram shows normal LV size and systolic function. Improved with lasix. -Altered mental status likely from metabolic encephalopathy from VINAY with component of dementia improving. -Atrial fibrillation with RVR new onset, converted to normal sinus rhythm -Staphylococcus aureus UTI present on admission -Luekocytosis from above improving -Dementia, Alzheimers type: Patient's CT although showed some chronic small vessel ischemic changes as well have a competent of vascular dementia patient appears to have advanced dementia. -Abdominal pain likely from constipation. -History of for CVAs TIAs in the past -COPD with acute exacerbation patient has some scattered wheezing. -Hyperlipidemia -Depression -Benign prostatic hypertrophy for which patient is on tamsulosin DVT prophylaxis: IV heparin GI prophylaxis: Pepcid Full Code Plan Nephrology is following the patient closely. He continues with indwelling catheter with gross hematuria secondary to patient pulling on the hernandez tube. Urology has been consulted for bilateral hydronephrosis recommending to continue with IDC at this time. His labs will be repeated in the morning. Patient has been started on empiric antibiotics with IV ceftriaxone. Urine culture is pending, blood culture is pending. Cardiology following and continuing patient on IV heparin. Constipation will be treated with lactulose and enema. Continue all other supportive care and also physical therapy and occupational therapy will be consulted. The impression and plan of care has been dictated by Leena Sal, Nurse Practitioner as directed. Dr. Josias MD I have performed a history and physical examination and medical decision making of this patient, discussed the same with the dictator, and agree with the dictators assessment and plan as written, documented as a scribe. Based on total visit time, I have performed more than 50% of this visit. Objective - Vital Signs Vital signs: Vital Signs Temp 97.8 F 03/18/22 12:00 Pulse 91 03/18/22 12:00 Resp 18 03/18/22 12:00 BP 131/79 03/18/22 12:00 Pulse Ox 97 03/18/22 12:00 FiO2 Intake & Output 03/17/22 03/18/22 03/18/22 18:59 06:59 18:59 Intake Total 983.316 103.597 186.878 Output Total 900 2200 Balance 983.316 -796.403 -2012.122 Intake: Intake, IV Titration 263.316 103.597 186.878 Amount Diltiazem 125 mg In 35 Sodium Chloride 0.9% 100 ml @ 7.5 MG/HR 7.5 mls/hr IV .[id number] [facility] Rx#: [id number] Heparin Sod,Pork in 0.45% 178.316 103.597 186.878 NaCl 25,000 unit In 0.45 % NaCl 1 250ml.bag @ 7. 3487 UNITS/KG/HR 10 mls/ hr IV .Q24H [facility] Rx#: [id number] cefTRIAXone 1 gm In 50 Sodium Chloride 0.9% 50 ml @ 100 mls/hr IVPB Q24HR [facility] Rx#:[id number] Oral 720 Output: Urine 900 2200 Uretheral (Hernandez) 300 1650 Other: Voiding Method Indwelling Catheter Indwelling Catheter Indwelling Catheter # Bowel Movements 1 - Labs CBC & Chem 7: 03/18/22 08:08 03/18/22 08:08 Labs: Abnormal Lab Results - Last 24 Hours (Table) 03/17/22 03/18/22 03/18/22 Range/Units 14:50 08:08 08:08 WBC 10.7 H (3.8-10.6) k/uL Hgb 12.3 L (13.0-17.5) gm/dL Hct 37.3 L (39.0-53.0) % Neutrophils # 8.2 H (1.3-7.7) k/uL APTT 41.6 H (22.0-30.0) sec Potassium 3.2 L (3.5-5.1) mmol/L BUN 55 H (9-20) mg/dL Creatinine 3.00 H (0.66-1.25) mg/dL Glucose 107 H (74-99) mg/dL Calcium 8.0 L (8.4-10.2) mg/dL 03/18/22 Range/Units 08:08 WBC (3.8-10.6) k/uL Hgb (13.0-17.5) gm/dL Hct (39.0-53.0) % Neutrophils # (1.3-7.7) k/uL APTT 66.1 H (22.0-30.0) sec Potassium (3.5-5.1) mmol/L BUN (9-20) mg/dL Creatinine (0.66-1.25) mg/dL Glucose (74-99) mg/dL Calcium (8.4-10.2) mg/dL Microbiology - Last 24 Hours (Table) 03/17/22 10:14 Blood Culture - Preliminary Blood No Growth after 24 hours 03/16/22 12:24 Urine Culture - Preliminary Urine,Clean Catch Presumptive Staph aureus Assessment and Plan Time with Patient: Less than 30
[2022-03-18] MEDS: POTASSIUM CHLORIDE ER 20 MEQ TAB.ER PO SCH ×2 (17:01→19:01)
[2022-03-18] MEDS: ATORVASTATIN 10 MG TAB PO SCH (21:34)
[2022-03-18] MEDS: FAMOTIDINE 20 MG TAB PO SCH (21:34)
--- NOTE | 2022-03-19 06:28 | P.GSCN ---
History of Present Illness Consult date: 03/18/22 Reason for Consult: Hydronephrosis Requesting physician: Farheen Thomas History of present illness: The patient is a 76-year-old white male with a history of dementia. He was admitted with mental status changes. He is known to Dr. Aguilar. In 2018, he was verified to be emptying his bladder. He underwent cystoscopy for evaluation of voiding symptoms in 2019, showing no prostatic obstruction. 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 He was last seen by Dr. Aguilar in November 2018. Per previous records, it was reported at the time of admission that he has recently experienced urinary incontinence and a Henry catheter was placed, with return of approximately 2 L of urine. Renal ultrasound was limited but showed evidence of bilateral hydronephrosis. Review of Systems ROS unobtainable: due to mental status - Constitutional Denies chills, Denies fever - Genitourinary Reports as per HPI Past Medical History Past Medical History: COPD, CVA/TIA, Osteoarthritis (OA) Additional Past Medical History / Comment(s): knees-arthritis, mini stroke last June. History of Any Multi-Drug Resistant Organisms: None Reported Past Surgical History: Cholecystectomy Additional Past Surgical History / Comment(s): knee surg. Past Anesthesia/Blood Transfusion Reactions: No Reported Reaction Past Psychological History: No Psychological Hx Reported Additional Psychological History / Comment(s): Was very agitated when I spoke with him on the phone. Smoking Status: Never smoker Past Alcohol Use History: Rare Past Drug Use History: Marijuana Additional Drug Use History / Comment(s): rare use - Past Family History Mother Family Medical History: No Reported History Father Family Medical History: Renal Disease Brother(s) Family Medical History: Congestive Heart Failure (CHF) Sister(s) Family Medical History: Cancer Daughter(s) Family Medical History: No Reported History Medications and Allergies Home Medications Medication Instructions Recorded Confirmed Type Albuterol Inhaler [Ventolin Hfa 2 puff INHALATION RT-Q6H PRN 08/21/16 03/15/22 History Inhaler] Memantine [Namenda] 10 mg PO BID 09/24/17 03/15/22 History Tamsulosin HCl [Flomax] 0.4 mg PO BID 09/24/17 03/15/22 History Atorvastatin [Lipitor] 10 mg PO DAILY 03/15/22 03/15/22 History Cholecalciferol [Vitamin D3 (25 50 mcg PO DAILY 03/15/22 03/15/22 History Mcg = 1000 Iu)] Furosemide [Lasix] 40 mg PO BID 03/15/22 03/15/22 History Glycopyrrolate [Robinul Forte] 2 mg PO TID 03/15/22 03/15/22 History Potassium Chloride [Klor-Con M20] 20 meq PO DAILY 03/15/22 03/15/22 History Sertraline [Zoloft] 50 mg PO DAILY 03/15/22 03/15/22 History Umeclidinium [place] [Incruse 1 puff INHALATION RT-DAILY 03/15/22 03/15/22 History Ellipta] Allergies Allergy/AdvReac Type Severity Reaction Status Date / Time No Known Allergies Allergy Verified 03/15/22 15:33 Surgical - Exam Vital Signs Temp Pulse Resp BP Pulse Ox 97.4 F L 72 22 146/83 98 03/15/22 13:16 03/15/22 13:16 03/15/22 13:16 03/15/22 13:16 03/15/22 13:16 - General well developed, well nourished, no distress - Respiratory normal respiratory effort - Abdomen Abdomen: soft, non tender, no guarding, no rigid, no rebound - Genitourinary normal penis with no external lesions, testicles non-tender - Psychiatric oriented to time, oriented to person, oriented to place, speech is normal, memory intact Results - Labs 03/18/22 08:08 03/18/22 08:08 Abnormal Lab Results - Last 24 Hours (Table) 03/17/22 03/17/22 03/17/22 Range/Units 05:54 05:54 05:54 WBC 15.9 H (3.8-10.6) k/uL Hgb 12.8 L (13.0-17.5) gm/dL Neutrophils # 13.7 H (1.3-7.7) k/uL APTT 42.7 H (22.0-30.0) sec BUN 71 H (9-20) mg/dL Creatinine 5.88 H (0.66-1.25) mg/dL Glucose 133 H (74-99) mg/dL Calcium 8.3 L (8.4-10.2) mg/dL 03/17/22 Range/Units 14:50 WBC (3.8-10.6) k/uL Hgb (13.0-17.5) gm/dL Neutrophils # (1.3-7.7) k/uL APTT 41.6 H (22.0-30.0) sec BUN (9-20) mg/dL Creatinine (0.66-1.25) mg/dL Glucose (74-99) mg/dL Calcium (8.4-10.2) mg/dL Microbiology - Last 24 Hours (Table) 03/16/22 12:24 Urine Culture - Preliminary Urine,Clean Catch Presumptive Staph aureus Diabetes panel 03/17/22 Range/Units 05:54 Sodium 140 (137-145) mmol/L Potassium 4.1 (3.5-5.1) mmol/L Chloride 99 (98-107) mmol/L Carbon Dioxide 28 (22-30) mmol/L BUN 71 H (9-20) mg/dL Creatinine 5.88 H (0.66-1.25) mg/dL Glucose 133 H (74-99) mg/dL Calcium 8.3 L (8.4-10.2) mg/dL Calcium panel 03/17/22 Range/Units 05:54 Calcium 8.3 L (8.4-10.2) mg/dL Pituitary panel 03/17/22 Range/Units 05:54 Sodium 140 (137-145) mmol/L Potassium 4.1 (3.5-5.1) mmol/L Chloride 99 (98-107) mmol/L Carbon Dioxide 28 (22-30) mmol/L BUN 71 H (9-20) mg/dL Creatinine 5.88 H (0.66-1.25) mg/dL Glucose 133 H (74-99) mg/dL Calcium 8.3 L (8.4-10.2) mg/dL Adrenal panel 03/17/22 Range/Units 05:54 Sodium 140 (137-145) mmol/L Potassium 4.1 (3.5-5.1) mmol/L Chloride 99 (98-107) mmol/L Carbon Dioxide 28 (22-30) mmol/L BUN 71 H (9-20) mg/dL Creatinine 5.88 H (0.66-1.25) mg/dL Glucose 133 H (74-99) mg/dL Calcium 8.3 L (8.4-10.2) mg/dL - Imaging US - kidney/bladder: report reviewed Assessment and Plan (1) Unspecified hydronephrosis Current Visit: Yes Status: Acute Code(s): N13.30 - UNSPECIFIED HYDRONEPHROSIS SNOMED Code(s): 77031490 Plan: The presence of bilateral hydronephrosis seen on ultrasound is almost certainly due to urinary retention. I would suggest that the Henry catheter remain in place, and I anticipate gradual improvement in his renal function. When evaluat ed, it was evident that the catheter was not Henry in the bladder and that the balloon was inflated within the urethra. The patient's nurse states that he is pulling at the catheter. She was asked to replace the catheter, and I stressed the need to the patient not to pull on the catheter. Time with Patient: Greater than 30
[2022-03-19] MEDS: IPRATROPIUM-ALBUTEROL 3 ML NEB INHALATION SCH ×4 (07:51→22:04)
--- NOTE | 2022-03-19 09:26 | P.PN ---
Subjective Progress Note Date: 03/19/22 Principal diagnosis: VINAY The patient is a 76-year-old white male with a history of dementia. He was admitted with mental status changes. He is known to Dr. Aguilar. In 2018, he was verified to be emptying his bladder. He underwent cystoscopy for evaluation of voiding symptoms in 2019, showing no prostatic obstruction. 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 He was last seen by Dr. Aguilar in November 2018. Per previous records, it was reported at the time of admission that he has recently experienced urinary incontinence and a Henry catheter was placed, with return of approximately 2 L of urine. Renal ultrasound was limited but showed evidence of bilateral hydronephrosis. 03/18 The presence of bilateral hydronephrosis seen on ultrasound is almost certainly due to urinary retention. I would suggest that the Henry catheter remain in place, and I anticipate gradual improvement in his renal function. When evaluated, it was evident that the catheter was not Henry in the bladder and that the balloon was inflated within the urethra. The patient's nurse sta emmanuel that he is pulling at the catheter. She was asked to replace the catheter, and I stressed the need to the patient not to pull on the catheter. Objective - Vital Signs Vital signs: Vital Signs Temp 98.1 F 03/19/22 04:00 Pulse 83 03/19/22 04:00 Resp 22 03/19/22 04:00 BP 110/53 03/19/22 04:00 Pulse Ox 94 L 03/19/22 04:00 FiO2 Intake & Output 03/18/22 03/19/22 03/19/22 18:59 06:59 18:59 Intake Total 399.867 6259.176 118 Output Total 3650 400 Balance -3348.302 650.176 118 Intake: Intake, IV Titration 301.698 90.176 Amount Heparin Sod,Pork in 0.45% 301.698 90.176 NaCl 25,000 unit In 0.45 % NaCl 1 250ml.bag @ 7. 3487 UNITS/KG/HR 10 mls/ hr IV .Q24H [facility] Rx#: [id number] Oral 960 118 Output: Urine 3650 400 Uretheral (Henry) 1650 Other: Voiding Method Indwelling Catheter Indwelling Catheter - Exam General: Well developed, well nourished. No acute distress. Chronically ill appearing HEENT: Head is atraumatic, normocephalic. Lungs: Respirations even and nonlabored. Abdomen/GI: Soft.No guarding, rigidity, or abdominal tenderness. : normal penis with no external lesions, testicles non-tender. Henry catheter draining clear yellow urine. Skin: Warm and dry Neurologic: CN II-XII grossly intact. No focal deficits. Psychiatric: Appropriate mood and affect. - Labs CBC & Chem 7: 03/18/22 08:08 03/19/22 09:20 Labs: Abnormal Lab Results - Last 24 Hours (Table) 03/18/22 03/18/22 Range/Units 08:08 15:00 APTT 47.2 H (22.0-30.0) sec Potassium 3.2 L (3.5-5.1) mmol/L BUN 55 H (9-20) mg/dL Creatinine 3.00 H (0.66-1.25) mg/dL Glucose 107 H (74-99) mg/dL Calcium 8.0 L (8.4-10.2) mg/dL Microbiology - Last 24 Hours (Table) 03/16/22 12:24 Urine Culture - Final Urine,Clean Catch Staphylococcus aureus 03/17/22 10:14 Blood Culture - Preliminary Blood No Growth after 24 hours Assessment and Plan Assessment: The Henry catheter appears to be in good position and is draining clear yellow urine. He has good urine output over the last 24 hours. His creatinine has been trending down, today's labs are still pending. If his serum creatinine continues to decline, he may be discharged from a urological standpoint. He should be discharged with his Henry catheter in place. His was present during examination. The patient is to follow-up in the office for further bladder testing. (1) Unspecified hydronephrosis Current Visit: Yes Status: Acute Code(s): N13.30 - UNSPECIFIED HYDRONEPHROSIS SNOMED Code(s): 78163877 Plan: - Monitor Creatinine level, today's labs pending - Keep Henry catheter in place Impression and plan of care have been directed as dictated by the signing physician. Indy Justice nurse practitioner acting as scribe for signing physician. Indy Justice [facility] Palliative Care/Urology [facility] [id number] Email: [email or web address] I have personally seen and examined the patient, reviewed the documentation and agree with the assessment and plan as written. Number of minutes spent on the visit: 20. Momo Culp MD
[2022-03-19] MEDS: MEMANTINE 5 MG TAB PO SCH ×2 (09:28→20:08)
[2022-03-19] MEDS: TAMSULOSIN 0.4 MG CAP.ER.24H PO SCH ×2 (09:28→20:08)
[2022-03-19] MEDS: METOPROLOL SUCCINATE (ER) 50 MG TAB.ER.24H PO SCH (09:28)
[2022-03-19] MEDS: SERTRALINE 50 MG TAB PO SCH (09:28)
[2022-03-19] MEDS: CHOLECALCIFEROL 25 MCG (1000 IU) TABLET PO SCH (09:28)
[2022-03-19 10:25] LABS: Calcium 8.1 mg/dL (8.4-10.2); Potassium 3.7 mmol/L (3.5-5.1)
--- NOTE | 2022-03-19 11:22 | P.PN ---
Subjective Patient is seen for follow-up for acute kidney injury. Admitted with a serum creatinine of about 5.5 which increased to 5.8 . Previous creatinine 0.9 on 08/05/2021. Ultrasound shows evidence of bilateral hydronephrosis. Patient currently has an indwelling Henry catheter which was changed yesterday due to persistent retention Renal function has improved with serum creatinine down to 2.0 today. Mentation also improved. Objective - Vital Signs Vital signs: Vital Signs Temp 98.1 F 03/19/22 04:00 Pulse 83 03/19/22 04:00 Resp 22 03/19/22 04:00 BP 110/53 03/19/22 04:00 Pulse Ox 94 L 03/19/22 04:00 FiO2 Intake & Output 03/18/22 03/19/22 03/19/22 18:59 06:59 18:59 Intake Total 703.114 4148.176 118 Output Total 3650 400 Balance -3348.302 650.176 118 Intake: Intake, IV Titration 301.698 90.176 Amount Heparin Sod,Pork in 0.45% 301.698 90.176 NaCl 25,000 unit In 0.45 % NaCl 1 250ml.bag @ 7. 3487 UNITS/KG/HR 10 mls/ hr IV .Q24H [facility] Rx#: [id number] Oral 960 118 Output: Urine 3650 400 Uretheral (Henry) 1650 Other: Voiding Method Indwelling Catheter Indwelling Catheter - Exam Awake, comfortable, no acute distress. Examination of the heart S1 and S2 Examination lungs decreased breath sounds at the bases Abdomen is soft distended obese, nontender Examination lower extremity shows chronic skin changes, trace edema [employer] exam grossly intact - Labs CBC & Chem 7: 03/18/22 08:08 03/19/22 09:20 Labs: Abnormal Lab Results - Last 24 Hours (Table) 03/18/22 03/19/22 Range/Units 15:00 09:20 APTT 47.2 H (22.0-30.0) sec Chloride 108 H (98-107) mmol/L BUN 40 H (9-20) mg/dL Creatinine 2.05 H (0.66-1.25) mg/dL Glucose 121 H (74-99) mg/dL Calcium 8.1 L (8.4-10.2) mg/dL Microbiology - Last 24 Hours (Table) 03/16/22 12:24 Urine Culture - Final Urine,Clean Catch Staphylococcus aureus 03/17/22 10:14 Blood Culture - Preliminary Blood No Growth after 24 hours Assessment and Plan Assessment: 1. Acute kidney injury from outlet obstruction, urine analysis does not have any WBCs but has blood RBCs and bacteria. Creatinine has improved from about 5.8-2.0 today. Bladder scan showed about 1 L of urine and a new Henry catheter was placed Ultrasound shows 13.2 cm right kidney left kidney is not well vis ualized, hydronephrosis was noted bilaterally. Urology consulted. 2. Possible congestive heart failure. 3. Irregular heart beat although EKG shows normal sinus rhythm yesterday. Maintained on Cardizem drip. Being followed by cardiology and patient will be switched to oral Cardizem. 4. Dementia 5. Altered mentation most likely related to some degree of uremia, currently improved Plan: Continue with Henry catheter Repeat labs in a.m. Continue to avoid nephrotoxic agents Continue Flomax
[2022-03-19] MEDS: ACETAMINOPHEN TAB 325 MG TAB PO PRN ×2 (13:34→20:07)
--- NOTE | 2022-03-19 13:56 | P.PN ---
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 Patient has a past medical history of Alzheimer's dementia, TIA, osteoarthritis. Patient is normally oriented 2. He has been homebound for the past year. Patient presented with worsening mental status changes noted was found to have acute kidney injury and bilateral hy dronephrosis. Patient is also been treated for urinary tract infection. We've been asked to see the patient for A. fib with RVR around midnight last evening. Ventricular rate was in the 150s to 160s. Patient was started on Cardizem drip and heparin drip. Patient has converted to a sinus rhythm in the 90s EKG #1 A. fib with RVR #2 sinus rhythm Chest x-ray cardiomegaly with mild pulmonary vascular congestion BNP 1930, TSH 5.2, BUN 73 and creatinine 5.4 Home cardiac medications include Lipitor. 03/18 Patient remains confused. Patient has Henry catheter in place that there was no urine output. Henry was obstructed and has been subsequently replaced. We are keeping patient on heparin drip 1 more day due to renal failure and possible need for dialysis catheter placement. Repeat blood work reveals hemoglobin of 12.3. Potassium 3.2 and has been replaced. BUN 55 and creatinine 3. 03/19 Patient continues to have improvement of kidney function was no plan for dialysis at this point. BUN 40 creatinine 2.05. He's been maintained on heparin drip which will be discontinued and transitioned to eliquis 2.5 mg twice daily. No new concerns today. Echocardiogram reveals EF of 55%. compliance monitor is A. 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 Physical examination: Gen: This is a 76-year-old obese occasional male. He is resting in bed and appears to be comfortable. No acute distress VS: reviewed HEENT: Head is atraumatic, normocephalic. Pupils equal, round. Sclerae is anicteric. Oral mucous membranes very dry LUNGS: Clear to auscultation. No wheezes or rhonchi. No intercostal retraction s. HEART: Irregular rate and rhythm. EXTREMITIES: No pedal edema. No calf tenderness. NEUROLOGICAL: Patient is awake, confused. Assessment: New onset of paroxysmal atrial fibrillation with RVR, currently rate controlled Acute kidney injury Bilateral hydronephrosis Alzheimer's dementia Plan: Continue patient on Toprol-XL 50 mg daily Discontinue heparin drip and transitioned to oral eliquis 2.5 mg twice daily. Further recommendations to follow based upon clinical course Nurse practitioner note has been reviewed, I agree with documented findings and plan of care. Patient was seen and examined. Objective - Vital Signs Vital signs: Vital Signs Temp 98.1 F 03/19/22 04:00 Pulse 83 03/19/22 04:00 Resp 22 03/19/22 04:00 BP 110/53 03/19/22 04:00 Pulse Ox 94 L 03/19/22 04:00 FiO2 Intake & Output 03/18/22 03/19/22 03/19/22 18:59 06:59 18:59 Intake Total 334.125 0420.176 118 Output Total 3650 400 Balance -3348.302 650.176 118 Intake: Intake, IV Titration 301.698 90.176 Amount Heparin Sod,Pork in 0.45% 301.698 90.176 NaCl 25,000 unit In 0.45 % NaCl 1 250ml.bag @ 7. 3487 UNITS/KG/HR 10 mls/ hr IV .Q24H [facility] Rx#: [id number] Oral 960 118 Output: Urine 3650 400 Uretheral (Henry) 1650 Other: Voiding Method Indwelling Catheter Indwelling Catheter - Labs CBC & Chem 7: 03/18/22 08:08 03/19/22 09:20 Labs: Abnormal Lab Results - Last 24 Hours (Table) 03/18/22 03/18/22 Range/Units 08:08 15:00 APTT 47.2 H (22.0-30.0) sec Potassium 3.2 L (3.5-5.1) mmol/L BUN 55 H (9-20) mg/dL Creatinine 3.00 H (0.66-1.25) mg/dL Glucose 107 H (74-99) mg/dL Calcium 8.0 L (8.4-10.2) mg/dL Microbiology - Last 24 Hours (Table) 03/16/22 12:24 Urine Culture - Final Urine,Clean Catch Staphylococcus aureus 03/17/22 10:14 Blood Culture - Preliminary Blood No Growth after 24 hours
[2022-03-19] MEDS: HEPARIN SODIUM 1,000 UN/ML (10ML VL) IV PRN (14:02)
[2022-03-19] MEDS: HEPARIN SOD,PORK IN 0.45% NACL 25,000 UNIT in 0.45% NACL 1 250ML.BAG IV SCH ×2 (14:04→23:59)
--- NOTE | 2022-03-19 17:41 | P.PN ---
Progress Note - Text Progress Note Date: 03/19/22 70-year-old male was brought in because of altered mental status patient has been not been himself. Patient does have Alzheimer's dementia history. Patient is any fever chills patient had nausea vomiting. Patient the is alert oriented 2. Patient appears to have advanced dementia at baseline from the history obtained from his significant other. Patient is found to be in acute renal failure with a limited be enough 73 and creatinine of 5.53. Patient baseline is within normal limits. Patient does take Lasix at home doesn't have any history of His Heart Failure. Patient Is Obese Probably Taking His Lasix for Peripheral Edema. 03/16/2022 Patient is evaluated today resting in bed with his significant other at the bedside. She is concerned with his mentation, he appears encephalopathic. There is no focal weakness noted on exam. He is following commands however he is significantly weak. He has been followed by Dr. Selvin huynh who has been coming to the house to see him, he has not been out of the house in the last year and his significant other has been caring for him. Currently he is requiring 2L of oxygen via nasal cannula. He had abdomen/bladder ultrasound completed showing eveidence for bilateral hydronephrosis and indwelling catheter was placed. His creatinine today is stable and not improved currently 5.40 today and nephrology is consulted. His labs otherwise are essentially normal. He was receiving IV fluids initially for the kidney injury however he had chest xray done as he does appear to be short of breath which his xray is showing cardiomegaly and mild pulmonary vascular congestion possible CHF. He is currently on 2 to 3L of oxygen, afebrile, heart rate 78 and blood pressure 131/72. 03/17/2022 Patient is evaluated today on stepdown unit. He has worsening confusion and is pulling off his oxygen. He has audible wheezing noted. He had went into atrial fibrillation with rapid ventricular rate of 150-170s he received a dose of oral metoprolol and he was started on IV heparin and IV cardizem and moved from the general medical floor. His echocardiogram is currently pending. This morning he continues in atrial fibrillation however his heart rate is better controlled in the 80s. He had continued to complain of abdominal pain overnight. The nurse was advised to attempt to advance the indwelling catheter and also the hernandez was irrigated with reports of a clot that was passed. Patient has had about 1.8 L of urine output overnight. He had received a dose of IV lasix yesterday per nephrology. His creatinine has increased up to 5.88. White count of 15.9 today. 03/18/2022 Patient is evaluated today resting in bed. He is currently alert x 3 with moments of confusion. He has continued with indwelling catheter overnight and has had urine output of 2.850 L. His kidney function has improved today, BUN 55, creatinine 3.00. Sodium remains stable at 141, potassium 3.2. He has noted gross hematuria noted in tubing and hernandez bag likely due to trauma from patient tugging on the catheter. Recommend to advance to catheter and monitor for resolution of hematuria. He has abdominal xray completed secondary to significant complaints of abdominal pain with suspicion of constipation which xray did reveal mildly distended colon with moderate amount of stool present throughout colon and rectum showing constipation. This could be contributing to urinary retention. He was given a soapsuds enema yesterday with small BM. He will be given a dose of lactulose today and can repeat enema. Echocardiogram shows normal LV size and systolic function. Urine culture showing presumptive staph aureus with blood culture pending. He is clinically improving on IV c eftriaxone and will continue with this antibiotic pending finalized urine cultures. Current labs showing white count of 10.7 which is improving. Remains afebrile, heart rate 91, blood pressure 131/79, 97% on 2L nasal cannula. 03/19/2022: [facility]. Tired. On a chopped diet. ate his breakfast and lunch well. Urine and the urine bag is clearing up. With the Hernandez catheter. Patient had been in atrial fibrillation now sinus rhythm. On IV heparin drip. Active Medications Acetaminophen (Acetaminophen Tab 325 Mg Tab) 650 mg PO Q6HR PRN PRN Reason: Fever and/ or Pain Last Admin: 03/19/22 13:34 Dose: 650 mg Albuterol/Ipratropium (Ipratropium-Albuterol 3 Ml Neb) 3 ml INHALATION RT-QID PRN PRN Reason: Shortness Of Breath Or Wheezing Albuterol/Ipratropium (Ipratropium-Albuterol 3 Ml Neb) 3 ml INHALATION RT-QID [facility] Last Admin: 03/19/22 14:57 Dose: Not Given Atorvastatin Calcium (Atorvastatin 10 Mg Tab) 10 mg PO HS [facility] Last Admin: 03/18/22 21:34 Dose: 10 mg Cholecalciferol (Cholecalciferol 25 Mcg (1000 Iu) Tablet) 50 mcg PO DAILY [facility] Last Admin: 03/19/22 09:28 Dose: 50 mcg Famotidine (Famotidine 20 Mg Tab) 20 mg PO HS [facility] Last Admin: 03/18/22 21:34 Dose: 20 mg Heparin Sodium (Porcine) (Heparin Sodium 1,000 Un/Ml (10ml Vl)) 0 unit IV PER PROTOCOL PRN; Protocol PRN Reason: Low PTT Last Admin: 03/19/22 14:02 Dose: 4,000 unit Ceftriaxone Sodium 1 gm/ (Sodium Chloride) 50 mls @ 100 mls/hr IVPB Q24HR [facility]; Protocol Last Admin: 03/19/22 11:51 Dose: 100 mls/hr Heparin Sodium/Sodium Chloride (25,000 unit/ Sodium Chloride) 250 mls @ 10 mls/hr IV .Q24H [facility]; Protocol Last Admin: 03/19/22 14:04 Dose: 15.3 units/kg/hr, 20.82 mls/hr Lactulose (Lactulose 20 Gm/30 Ml Cup) 20 gm PO BID PRN PRN Reason: Constipation Memantine (Memantine 5 Mg Tab) 5 mg PO BID [facility] Last Admin: 03/19/22 09:28 Dose: 5 mg Metoprolol Succinate (Metoprolol Succinate (Er) 50 Mg Tab.Er.24h) 50 mg PO DAILY [facility] Last Admin: 03/19/22 09:28 Dose: 50 mg Naloxone HCl (Naloxone 0.4 Mg/Ml 1 Ml Vial) 0.2 mg IV Q2M PRN PRN Reason: Opioid Reversal Sertraline HCl (Sertraline 50 Mg Tab) 50 mg PO DAILY [facility] Last Admin: 03/19/22 09:28 Dose: 50 mg Tamsulosin HCl (Tamsulosin 0.4 Mg Cap.Er.24h) 0.4 mg PO BID [facility] Last Admin: 03/19/22 09:28 Dose: 0.4 mg On examination: VITAL SIGNS: [98.3, 91, 16, 1 42 x 68, 98% room air] GENERAL APPEARANCE: BMI 44.6, laying in bed not in distress HEENT: Normal external appearance of nose and ear. Oral cavity normal EYES: Pupils equal. Conjunctiva normal. NECK: JVD not raised. Mass not palpable. RESPIRATORY: Respiratory effort normal. Lungs decreased breath sounds. CARDIOVASCULAR: First and second sounds normal. No edema. ABDOMEN: Soft. Liver and spleen not palpable. No tenderness. No mass palpable. Hernandez catheter-yellow urine PSYCHIATRY: Able to answer simple questions. INVESTIGATIONS, reviewed in the clinical context: 03/19/2022: Potassium 3.7 BUN 40 creatinine 2.05 Admission labs [03/15/2022 White count 7.7 hemoglobin 13.4 platelets 265 potassium 4.3 BUN [address] brain: Cerebral atrophy chronic small vessel ischemic changes. 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 Bladder ultrasound: Evidence of bilateral hydronephrosis. Urinary bladder not well seen. 2-D echocardiogram: EF 55%. Assessment and plan: --Acute renal failure: patient was found to have obstructive uropathy likely from BPH with bilateral hydronephrosis and indwelling catheter was placed. Admission creatinine 5.53 today 2.05 -Acute hypoxic respiratory failure from mild COPD exacberation, and volume overload. His echocardiogram shows normal LV size and systolic function. Improved with lasix. -Altered mental status likely from metabolic encephalopathy from VINAY with component of dementia : improving. -Paroxysmal Atrial fibrillation with RVR new onset, converted to normal sinus rhythm IV heparin. Toprol-XL 50 mg a day -IV heparin monitoring Follow PTT -MSSA UTI present on admission Was receiving IV ceftriaxone. Changed to Keflex -Luekocytosis from above improving -Baseline cognitive impairment from Dementia, Alzheimers type: CT brain: showed some chronic small vessel ischemic changes as well have a competent of vascular dementia patient appears to have advanced dementia. Namenda -COPD with acute exacerbation DuoNeb -Hyperlipidemia Lipitor -Depression Zoloft -Benign prostatic hypertrophy on tamsulosin
[2022-03-19] MEDS: CEPHALEXIN 500 MG CAP PO SCH (20:07)
[2022-03-19] MEDS: ATORVASTATIN 10 MG TAB PO SCH (20:08)
[2022-03-19] MEDS: FAMOTIDINE 20 MG TAB PO SCH (20:08)
[2022-03-20] MEDS: IPRATROPIUM-ALBUTEROL 3 ML NEB INHALATION SCH ×4 (07:24→19:10)
[2022-03-20 08:19] LABS: Calcium 7.9 mg/dL (8.4-10.2); Potassium 3.5 mmol/L (3.5-5.1)
[2022-03-20] MEDS: METOPROLOL SUCCINATE (ER) 50 MG TAB.ER.24H PO SCH (08:26)
[2022-03-20] MEDS: TAMSULOSIN 0.4 MG CAP.ER.24H PO SCH ×2 (08:26→20:56)
[2022-03-20] MEDS: SERTRALINE 50 MG TAB PO SCH (08:26)
[2022-03-20] MEDS: CHOLECALCIFEROL 25 MCG (1000 IU) TABLET PO SCH (08:26)
[2022-03-20] MEDS: ACETAMINOPHEN TAB 325 MG TAB PO PRN (08:26)
[2022-03-20] MEDS: MEMANTINE 5 MG TAB PO SCH (08:26)
[2022-03-20] MEDS: CEPHALEXIN 500 MG CAP PO SCH ×3 (08:26→20:55)
[2022-03-20 13:06] VITALS: BMI 44.6
--- NOTE | 2022-03-20 14:37 | P.PN ---
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 Patient has a past medical history of Alzheimer's dementia, TIA, osteoarthritis. Patient is normally oriented 2. He has been homebound for the past year. Patient presented with worsening mental status changes noted was found to have acute kidney injury and bilateral hy dronephrosis. Patient is also been treated for urinary tract infection. We've been asked to see the patient for A. fib with RVR around midnight last evening. Ventricular rate was in the 150s to 160s. Patient was started on Cardizem drip and heparin drip. Patient has converted to a sinus rhythm in the 90s EKG #1 A. fib with RVR #2 sinus rhythm Chest x-ray cardiomegaly with mild pulmonary vascular congestion BNP 1930, TSH 5.2, BUN 73 and creatinine 5.4 Home cardiac medications include Lipitor. 03/18 Patient remains confused. Patient has Henry catheter in place that there was no urine output. Henry was obstructed and has been subsequently replaced. We are keeping patient on heparin drip 1 more day due to renal failure and possible need for dialysis catheter placement. Repeat blood work reveals hemoglobin of 12.3. Potassium 3.2 and has been replaced. BUN 55 and creatinine 3. 03/19 Patient continues to have improvement of kidney function was no plan for dialysis at this point. BUN 40 creatinine 2.05. He's been maintained on heparin drip which will be discontinued and transitioned to eliquis 2.5 mg twice daily. No new concerns today. Echocardiogram reveals EF of 55%. patient monitor is A. 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 03/20 Patient continues to be in atrial fibrillation with controlled rate. Blood pressures have been stable. He has had significant improvement of his renal function with BUN 30 and creatinine 1.72. Physical examination: Gen: This is a 76-year-old obese occasional male. He is resting in bed and appears to be comfortable. No acute distress VS: reviewed HEENT: Head is atraumatic, normocephalic. Pupils equal, round. Sclerae is anicteric. Oral mucous membranes very dry LUNGS: Clear to auscultation. No wheezes or rhonchi. No intercostal retractio ns. HEART: Irregular rate and rhythm. EXTREMITIES: No pedal edema. No calf tenderness. NEUROLOGICAL: Patient is awake, confused. Assessment: New onset of paroxysmal atrial fibrillation with RVR, currently rate controlled Acute kidney injury Bilateral hydronephrosis Alzheimer's dementia Plan: Continue patient on Toprol-XL 50 mg daily Discontinue heparin drip and transitioned to oral eliquis 2.5 mg twice daily. Further recommendations to follow based upon clinical course Nurse practitioner note has been reviewed, I agree with documented findings and plan of care. Patient was seen and examined. Objective - Vital Signs Vital signs: Vital Signs Temp 97.9 F 03/20/22 08:00 Pulse 80 03/20/22 08:00 Resp 16 03/20/22 08:00 BP 136/78 03/20/22 08:00 Pulse Ox 92 L 03/20/22 08:00 FiO2 Intake & Output 03/19/22 03/20/22 03/20/22 18:59 06:59 18:59 Intake Total 586 206.465 Output Total 1000 250 900 Balance -414 -43.535 -900 Intake: Intake, IV Titration 350 206.465 Amount Heparin Sod,Pork in 0.45% 250 206.465 NaCl 25,000 unit In 0.45 % NaCl 1 250ml.bag @ 7. 3487 UNITS/KG/HR 10 mls/ hr IV .Q24H [facility] Rx#: [id number] [id number] 1 gm In 100 Sodium Chloride 0.9% 50 ml @ 100 mls/hr IVPB Q24HR [facility] Rx#:[id number] Oral 236 Output: Urine 1000 250 900 Other: Voiding Method Indwelling Catheter Indwelling Catheter - Labs CBC & Chem 7: 03/18/22 08:08 03/20/22 06:56 Labs: Abnormal Lab Results - Last 24 Hours (Table) 03/19/22 03/19/22 03/19/22 Range/Units 09:20 12:32 18:22 APTT 31.3 H 64.1 H (22.0-30.0) sec Chloride 108 H (98-107) mmol/L BUN 40 H (9-20) mg/dL Creatinine 2.05 H (0.66-1.25) mg/dL Glucose 121 H (74-99) mg/dL Calcium 8.1 L (8.4-10.2) mg/dL 03/20/22 03/20/22 Range/Units 06:56 06:56 APTT 51.7 H (22.0-30.0) sec Chloride 108 H (98-107) mmol/L BUN 30 H (9-20) mg/dL Creatinine 1.72 H (0.66-1.25) mg/dL Glucose 100 H (74-99) mg/dL Calcium 7.9 L (8.4-10.2) mg/dL Microbiology - Last 24 Hours (Table) 03/17/22 10:14 Blood Culture - Preliminary Blood No Growth after 48 hours
--- NOTE | 2022-03-20 15:22 | P.PN ---
Progress Note - Text Progress Note Date: 03/20/22 70-year-old male was brought in because of altered mental status patient has been not been himself. Patient does have Alzheimer's dementia history. Patient is any fever chills patient had nausea vomiting. Patient the is alert oriented 2. Patient appears to have advanced dementia at baseline from the history obtained from his significant other. Patient is found to be in acute renal failure with a limited be enough 73 and creatinine of 5.53. Patient baseline is within normal limits. Patient does take Lasix at home doesn't have any history of His Heart Failure. Patient Is Obese Probably Taking His Lasix for Peripheral Edema. 03/16/2022 Patient is evaluated today resting in bed with his significant other at the bedside. She is concerned with his mentation, he appears encephalopathic. There is no focal weakness noted on exam. He is following commands however he is significantly weak. He has been followed by Dr. Selvin huynh who has been coming to the house to see him, he has not been out of the house in the last year and his significant other has been caring for him. Currently he is requiring 2L of oxygen via nasal cannula. He had abdomen/bladder ultrasound completed showing eveidence for bilateral hydronephrosis and indwelling catheter was placed. His creatinine today is stable and not improved currently 5.40 today and nephrology is consulted. His labs otherwise are essentially normal. He was receiving IV fluids initially for the kidney injury however he had chest xray done as he does appear to be short of breath which his xray is showing cardiomegaly and mild pulmonary vascular congestion possible CHF. He is currently on 2 to 3L of oxygen, afebrile, heart rate 78 and blood pressure 131/72. 03/17/2022 Patient is evaluated today on stepdown unit. He has worsening confusion and is pulling off his oxygen. He has audible wheezing noted. He had went into atrial fibrillation with rapid ventricular rate of 150-170s he received a dose of oral metoprolol and he was started on IV heparin and IV cardizem and moved from the general medical floor. His echocardiogram is currently pending. This morning he continues in atrial fibrillation however his heart rate is better controlled in the 80s. He had continued to complain of abdominal pain overnight. The nurse was advised to attempt to advance the indwelling catheter and also the hernandez was irrigated with reports of a clot that was passed. Patient has had about 1.8 L of urine output overnight. He had received a dose of IV lasix yesterday per nephrology. His creatinine has increased up to 5.88. White count of 15.9 today. 03/18/2022 Patient is evaluated today resting in bed. He is currently alert x 3 with moments of confusion. He has continued with indwelling catheter overnight and has had urine output of 2.850 L. His kidney function has improved today, BUN 55, creatinine 3.00. Sodium remains stable at 141, potassium 3.2. He has noted gross hematuria noted in tubing and hernandez bag likely due to trauma from patient tugging on the catheter. Recommend to advance to catheter and monitor for resolution of hematuria. He has abdominal xray completed secondary to significant complaints of abdominal pain with suspicion of constipation which xray did reveal mildly distended colon with moderate amount of stool present throughout colon and rectum showing constipation. This could be contributing to urinary retention. He was given a soapsuds enema yesterday with small BM. He will be given a dose of lactulose today and can repeat enema. Echocardiogram shows normal LV size and systolic function. Urine culture showing presumptive staph aureus with blood culture pending. He is clinically improving on IV c eftriaxone and will continue with this antibiotic pending finalized urine cultures. Current labs showing white count of 10.7 which is improving. Remains afebrile, heart rate 91, blood pressure 131/79, 97% on 2L nasal cannula. 03/19/2022: I assumed care of the patient from [facility] hospitalists Laying in bed. Tired. On a chopped diet. ate his breakfast and lunch well. Urine and the urine bag is clearing up. With the Hernandez catheter. Patient had been in atrial fibrillation now sinus rhythm. On IV heparin drip. In 03/20/2022: In bed. More awake more comfortable answering questions. Eating better. Creatinine down to 1.72. IV heparin discontinued. His started eliquis. Atrial fibrillation rate controlled. Active Medications Acetaminophen (Acetaminophen Tab 325 Mg Tab) 650 mg PO Q6HR PRN PRN Reason: Fever and/ or Pain Last Admin: 03/20/22 08:26 Dose: 650 mg Albuterol/Ipratropium (Ipratropium-Albuterol 3 Ml Neb) 3 ml INHALATION RT-QID PRN PRN Reason: Shortness Of Breath Or Wheezing Albuterol/Ipratropium (Ipratropium-Albuterol 3 Ml Neb) 3 ml INHALATION RT-QID [facility] Last Admin: 03/20/22 11:34 Dose: Not Given Apixaban (Apixaban 2.5 Mg Tablet) 2.5 mg PO BID [facility]; Protocol Atorvastatin Calcium (Atorvastatin 10 Mg Tab) 10 mg PO HS [facility] Last Admin: 03/19/22 20:08 Dose: 10 mg Cephalexin (Cephalexin 500 Mg Cap) 500 mg PO TID [facility]; Protocol Last Admin: 03/20/22 08:26 Dose: 500 mg Cholecalciferol (Cholecalciferol 25 Mcg (1000 Iu) Tablet) 50 mcg PO DAILY [facility] Last Admin: 03/20/22 08:26 Dose: 50 mcg Famotidine (Famotidine 20 Mg Tab) 20 mg PO HS [facility] Last Admin: 03/19/22 20:08 Dose: 20 mg Lactulose (Lactulose 20 Gm/30 Ml Cup) 20 gm PO BID PRN PRN Reason: Constipation Memantine (Memantine 10 Mg Tab) 10 mg PO BID [facility] Metoprolol Succinate (Metoprolol Succinate (Er) 50 Mg Tab.Er.24h) 50 mg PO DAILY [facility] Last Admin: 03/20/22 08:26 Dose: 50 mg Naloxone HCl (Naloxone 0.4 Mg/Ml 1 Ml Vial) 0.2 mg IV Q2M PRN PRN Reason: Opioid Reversal Sertraline HCl (Sertraline 50 Mg Tab) 50 mg PO DAILY [facility] Last Admin: 03/20/22 08:26 Dose: 50 mg Tamsulosin HCl (Tamsulosin 0.4 Mg Cap.Er.24h) 0.4 mg PO BID [facility] Last Admin: 03/20/22 08:26 Dose: 0.4 mg On examination: VITAL SIGNS: 97.9, 71, 16, 128/70, 94% room air GENERAL APPEARANCE: Declining in bed, eating lunch HEENT: Normal external appearance of nose and ear. Oral cavity normal EYES: Pupils equal. Conjunctiva normal. NECK: JVD not raised. Mass not palpable. RESPIRATORY: Respiratory effort normal. Lungs decreased breath sounds. CARDIOVASCULAR: First and second sounds normal. No edema. ABDOMEN: Soft. Liver and spleen not palpable. No tenderness. No mass palpable. Hernandez catheter-yellow urine PSYCHIATRY: Awake, answering questions appropriately INVESTIGATIONS, reviewed in the clinical context: 03/20/2022: Potassium 3.5 BUN 30 creatinine 1.7 to 03/19/2022: Potassium 3.7 BUN 40 creatinine 2.05 Admission labs [03/15/2022 White count 7.7 hemoglobin 13.4 platelets 265 potassium 4.3 BUN [address] brain: Cerebral atrophy chronic small vessel ischemic changes. 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 Bladder ultrasound: Evidence of bilateral hydronephrosis. Urinary bladder not well seen. 2-D echocardiogram: EF 55%. Assessment and plan: --Acute renal failure: patient was found to have obstructive uropathy likely from BPH with bilateral hydronephrosis and indwelling catheter was placed. : Improving Admission creatinine 5.53 today 1.73 -Acute hypoxic respiratory failure from mild COPD exacberation, and volume overload. His echocardiogram shows normal LV size and systolic function. Improved with lasix. -Altered mental status likely from metabolic encephalopathy from VINAY with component of dementia : improving. -Paroxysmal Atrial fibrillation with RVR new onset, converted to normal sinus rhythm IV heparin discontinued. Started eliquis today. Toprol-XL 50 mg a day -IV heparin monitoring discontinued -MSSA UTI present on admission Keflex -Luekocytosis from above improving -Baseline cognitive impairment from Dementia, Alzheimers type: CT brain: showed some chronic small vessel ischemic changes as well have a competent of vascular dementia patient appears to have advanced dementia. Namenda -COPD with acute exacerbation DuoNeb -Hyperlipidemia Lipitor -Depression Zoloft -Benign prostatic hypertrophy on tamsulosin -Full code Patient doing better. Oral intake better. Off IV fluids. Looking to be discharged to hopefully next 24 hours.
--- NOTE | 2022-03-20 20:54 | P.PN ---
Subjective Patient is seen for follow-up for acute kidney injury. Admitted with a serum creatinine of about 5.5 which increased to 5.8 . Previous creatinine 0.9 on 08/05/2021. Ultrasound shows evidence of bilateral hydronephrosis. Patient currently has an indwelling Henry catheter which was changed yesterday due to persistent retention Renal function has improved with serum creatinine down to 1.7 today. Mentation also improved. UOP 4 L for 24 hrs. Objective - Vital Signs Vital signs: Vital Signs Temp 97.9 F 03/20/22 08:00 Pulse 84 03/20/22 19:18 Resp 16 03/20/22 15:49 BP 136/82 03/20/22 15:49 Pulse Ox 98 03/20/22 15:49 FiO2 Intake & Output 03/20/22 03/20/22 03/21/22 06:59 18:59 06:59 Intake Total 206.465 680 Output Total 250 2000 Balance -43.535 -1320 Weight 137 kg Intake: Intake, IV Titration 206.465 Amount Heparin Sod,Pork in 0.45% 206.465 NaCl 25,000 unit In 0.45 % NaCl 1 250ml.bag @ 7. 3487 UNITS/KG/HR 10 mls/ hr IV .Q24H [facility] Rx#: [id number] Oral 680 Output: Urine 250 2000 Other: Voiding Method Indwelling Catheter Indwelling Catheter # Bowel Movements 1 - Exam Awake, comfortable, no acute distress. 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 Acute kidney injury from outlet obstruction, urine analysis does not have any WBCs but has blood RBCs and bacteria. Creatinine has improved from about 5.8- 1.7 today. Bladder scan showed about 1 L of urine and a new Henry catheter was placed. Ultrasound shows 13.2 cm right kidney left kidney is not well visualized, hydronephrosis was noted bilaterally. Urology consulted. 2. Urine culture growing 10,000-49,000 colonies MSSA 3. A fib with RVR. 4. Dementia 5. Altered mentation most likely related to some degree of uremia, currently improved Plan: Continue with Henry catheter Repeat labs in a.m. Continue to avoid nephrotoxic agents Continue Flomax
[2022-03-20] MEDS: APIXABAN 2.5 MG TABLET PO SCH (20:55)
[2022-03-20] MEDS: MEMANTINE 10 MG TAB PO SCH (20:56)
[2022-03-20] MEDS: FAMOTIDINE 20 MG TAB PO SCH (20:56)
[2022-03-20] MEDS: ATORVASTATIN 10 MG TAB PO SCH (20:56)
[2022-03-20 21:41] VITALS: RESP 18
[2022-03-21] MEDS: IPRATROPIUM-ALBUTEROL 3 ML NEB INHALATION SCH ×2 (07:36→11:20)
[2022-03-21 07:43] LABS: Calcium 8.2 mg/dL (8.4-10.2); Potassium 3.7 mmol/L (3.5-5.1)
[2022-03-21] MEDS: CHOLECALCIFEROL 25 MCG (1000 IU) TABLET PO SCH (10:26)
[2022-03-21] MEDS: TAMSULOSIN 0.4 MG CAP.ER.24H PO SCH (10:26)
[2022-03-21] MEDS: CEPHALEXIN 500 MG CAP PO SCH (10:26)
[2022-03-21] MEDS: METOPROLOL SUCCINATE (ER) 50 MG TAB.ER.24H PO SCH (10:26)
[2022-03-21] MEDS: SERTRALINE 50 MG TAB PO SCH (10:26)
[2022-03-21] MEDS: MEMANTINE 10 MG TAB PO SCH (10:26)
[2022-03-21] MEDS: APIXABAN 2.5 MG TABLET PO SCH (10:26)
[2022-03-21 11:26] VITALS: BP 130/65; TEMP 98.1
[2022-03-21 11:30] VITALS: PULSE 90
--- NOTE | 2022-03-21 13:20 | P.PN ---
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 Patient has a past medical history of Alzheimer's dementia, TIA, osteoarthritis. Patient is normally oriented 2. He has been homebound for the past year. Patient presented with worsening mental status changes noted was found to have acute kidney injury and bilateral hy dronephrosis. Patient is also been treated for urinary tract infection. We've been asked to see the patient for A. fib with RVR around midnight last evening. Ventricular rate was in the 150s to 160s. Patient was started on Cardizem drip and heparin drip. Patient has converted to a sinus rhythm in the 90s EKG #1 A. fib with RVR #2 sinus rhythm Chest x-ray cardiomegaly with mild pulmonary vascular congestion BNP 1930, TSH 5.2, BUN 73 and creatinine 5.4 Home cardiac medications include Lipitor. 03/18 Patient remains confused. Patient has Henry catheter in place that there was no urine output. Henry was obstructed and has been subsequently replaced. We are keeping patient on heparin drip 1 more day due to renal failure and possible need for dialysis catheter placement. Repeat blood work reveals hemoglobin of 12.3. Potassium 3.2 and has been replaced. BUN 55 and creatinine 3. 03/19 Patient continues to have improvement of kidney function was no plan for dialysis at this point. BUN 40 creatinine 2.05. He's been maintained on heparin drip which will be discontinued and transitioned to eliquis 2.5 mg twice daily. No new concerns today. Echocardiogram reveals EF of 55%. 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 03/20 Patient continues to be in atrial fibrillation with controlled rate. Blood pressures have been stable. He has had significant improvement of his renal function with BUN 30 and creatinine 1.72. 03/21 Patient was started on eliquis 2.5 mg twice daily yesterday and heparin was discontinued. Renal function continues to improve. He has been maintained on Toprol-XL as well. Heart rate has been running in the 80s to 90s, blood pressure 130/65. Telemetry is atrial fibrillation rate controlled. BUN 24 creatinine 1.6, potassium 3.7. Physical examination: Gen: This is a 76-year-old obese occasional male. He is resting in bed and appears to be comfortable. No acute distress VS: reviewed HEENT: Head is atraumatic, normocephalic. Pupils equal, round. Sclerae is anicteric. Oral mucous membranes very dry LUNGS: Clear to auscultation. No wheezes or rhonchi. No intercostal retractions. HEART: Irregular rate and rhythm. EXTREMITIES: No pedal edema. No calf tenderness. NEUROLOGICAL: Patient is awake, confused. Assessment: New onset of paroxysmal atrial fibrillation with RVR, currently rate controlled Acute kidney injury Bilateral hydronephrosis Alzheimer's dementia Plan: Continue patient on Toprol-XL 50 mg daily Continue patient on eliquis 2.5 mg twice daily. Patient is cleared for discharge home. Cardiology will sign off and follow up on an as-needed basis. Nurse practitioner note has been reviewed, I agree with the documented findings and plan of care. Patient was seen and examined. Objective - Vital Signs Vital signs: Vital Signs Temp 98.1 F 03/21/22 08:00 Pulse 90 03/21/22 11:29 Resp 18 03/21/22 08:00 BP 130/65 03/21/22 08:00 Pulse Ox 96 03/21/22 08:00 FiO2 Intake & Output 03/20/22 03/21/22 03/21/22 18:59 06:59 18:59 Intake Total 680 Output Total 1999 1550 Balance -1320 -1550 Weight 137 kg Intake: Oral 680 Output: Urine 1999 1550 Other: Voiding Method Indwelling Catheter Indwelling Catheter Indwelling Catheter # Bowel Movements 1 1 2 - Labs CBC & Chem 7: 03/18/22 08:08 03/21/22 07:06 Labs: Abnormal Lab Results - Last 24 Hours (Table) 03/21/22 Range/Units 07:06 Chloride 109 H (98-107) mmol/L BUN 24 H (9-20) mg/dL Creatinine 1.60 H (0.66-1.25) mg/dL Glucose 117 H (74-99) mg/dL Calcium 8.2 L (8.4-10.2) mg/dL Microbiology - Last 24 Hours (Table) 03/17/22 10:14 Blood Culture - Preliminary Blood No Growth after 96 hours
--- NOTE | 2022-03-21 18:24 | P.PN ---
Subjective Patient is seen for follow-up for acute kidney injury. Admitted with a serum creatinine of about 5.5 which increased to 5.8 . Previous creatinine 0.9 on 08/05/2021. Ultrasound shows evidence of bilateral hydronephrosis. Patient currently has an indwelling Henry catheter which was changed yesterday due to persistent retention Renal function has improved with serum creatinine down to 1.6 today. Mentation also improved. UOP 3.5 L for 24 hrs. Objective - Vital Signs Vital signs: Vital Signs Temp 98.1 F 03/21/22 08:00 Pulse 90 03/21/22 11:29 Resp 18 03/21/22 08:00 BP 130/65 03/21/22 08:00 Pulse Ox 96 03/21/22 08:00 FiO2 Intake & Output 03/20/22 03/21/22 03/21/22 18:59 06:59 18:59 Intake Total 680 Output Total 1999 1550 Balance -1320 -1550 Weight 137 kg Intake: Oral 680 Output: Urine 1999 1550 Other: Voiding Method Indwelling Catheter Indwelling Catheter Indwelling Catheter # Bowel Movements 1 1 2 - Exam Awake, comfortable, no acute distress. 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 Acute kidney injury from outlet obstruction, urine analysis does not have any WBCs but has blood RBCs and bacteria. Creatinine has improved from about 5.8- 1.7 today. Bladder scan showed about 1 L of urine and a new Henry catheter was placed. Ultrasound shows 13.2 cm right kidney left kidney is not well visualized, hydronephrosis was noted bilaterally. Urology consulted. 2. Urine culture growing 10,000-49,000 colonies MSSA 3. A fib with RVR. 4. Dementia 5. Altered mentation most likely related to some degree of uremia, currently improved Plan: Continue with Henry catheter Repeat labs in a.m. Continue to avoid nephrotoxic agents Continue Flomax
--- NOTE | 2022-03-21 18:49 | P.DS ---
Providers Date of admission: 03/15/22 15:38 Expected date of discharge: 03/21/22 Attending physician: Jamel Mims Consults: 03/15/22 15:38 Consult Physician Routine Consulting Provider: Laron Chavez Consult Reason/Comments: vinay Do you want consulting provider notified?: Yes 03/16/22 23:50 Consult Physician Routine Consulting Provider: Rajat Andrade Consult Reason/Comments: afib with RVR Do you want consulting provider notified?: Yes, Notify in am 03/17/22 11:09 Consult Physician Routine Consulting Provider: Momo Culp Consult Reason/Comments: bilateral hydro Do you want consulting provider notified?: Yes Primary care physician: Martin Montalvo MD Hospital Course: 70-year-old male was brought in because of altered mental status patient has been not been himself. Patient does have Alzheimer's dementia history. Patient is any fever chills patient had nausea vomiting. Patient the is alert oriented 2. Patient appears to have advanced dementia at baseline from the history obtained from his significant other. Patient is found to be in acute renal failure with a limited be enough 73 and creatinine of 5.53. Patient baseline is within normal limits. Patient does take Lasix at home doesn't have any history of His Heart Failure. Patient Is Obese Probably Taking His Lasix for Peripheral Edema. 03/16/2022 Patient is evaluated today resting in bed with his significant other at the bedside. She is concerned with his mentation, he appears encephalopathic. There is no focal weakness noted on exam. He is following commands however he is significantly weak. He has been followed by Dr. Montalvo outpatient who has been coming to the house to see him, he has not been out of the house in the last year and his significant other has been caring for him. Currently he is requiring 2L of oxygen via nasal cannula. He had abdomen/bladder ultrasound completed showing eveidence for bilateral hydronephrosis and indwelling catheter was placed. His creatinine today is stable and not improved currently 5.40 today and nephrology is consulted. His labs otherwise are essentially normal. He was receiving IV fluids initially for the kidney injury however he had chest xray done as he does appear to be short of breath which his xray is showing cardiomegaly and mild pulmonary vascular congestion possible CHF. He is currently on 2 to 3L of oxygen, afebrile, heart rate 78 and blood pressure 131/72. 03/17/2022 Patient is evaluated today on stepdown unit. He has worsening confusion and is pulling off his oxygen. He has audible wheezing noted. He had went into atrial fibrillation with rapid ventricular rate of 150-170s he received a dose of oral metoprolol and he was started on IV heparin and IV cardizem and moved from the general medical floor. His echocardiogram is currently pending. This morning he continues in atrial fibrillation however his heart rate is better controlled in the 80s. He had continued to complain of abdominal pain overnight. The nurse was advised to attempt to advance the indwelling catheter and also the hernandez was irrigated with reports of a clot that was passed. Patient has had about 1.8 L of urine output overnight. He had received a dose of IV lasix yesterday per nephrology. His creatinine has increased up to 5.88. White count of 15.9 today. 03/18/2022 Patient is evaluated today resting in bed. He is currently alert x 3 with moments of confusion. He has continued with indwelling catheter overnight and has had urine output of 2.850 L. His kidney function has improved today, BUN 55, creatinine 3.00. Sodium remains stable at 141, potassium 3.2. He has noted gross hematuria noted in tubing and hernandez bag likely due to trauma from patient tugging on the catheter. Recommend to advance to catheter and monitor for resol ution of hematuria. He has abdominal xray completed secondary to significant complaints of abdominal pain with suspicion of constipation which xray did reveal mildly distended colon with moderate amount of stool present throughout colon and rectum showing constipation. This could be contributing to urinary retention. He was given a soapsuds enema yesterday with small BM. He will be given a dose of lactulose today and can repeat enema. Echocardiogram shows normal LV size and systolic function. Urine culture showing presumptive staph aureus with blood culture pending. He is clinically improving on IV ceftriaxone and will continue with this antibiotic pending finalized urine cultures. Current labs showing white count of 10.7 which is improving. Remains afebrile, heart rate 91, blood pressure 131/79, 97% on 2L nasal cannula. 03/19/2022: I assumed care of the patient from [facility] Laying in bed. Tired. On a chopped diet. ate his breakfast and lunch well. Urine and the urine bag is clearing up. With the Hernandez catheter. Patient had been in atrial fibrillation now sinus rhythm. On IV heparin drip. In 03/20/2022: In bed. More awake more comfortable answering questions. Eating better. Creatinine down to 1.72. IV heparin discontinued. His started eliquis. Atrial fibrillation rate controlled. 03/21/2022: In bed. Eating well. at the bedside. Creatinine coming down to 1.6. Follow-up labs outpatient. Heart rate controlled. Follow with nephrology cardiology. On examination: VITAL SIGNS: At 8.1, 82, 18, 1:30/65, 96% room air GENERAL APPEARANCE: Declining in bed, eating lunch HEENT: Normal external appearance of nose and ear. Oral cavity normal EYES: Pupils equal. Conjunctiva normal. NECK: JVD not raised. Mass not palpable. RESPIRATORY: Respiratory effort normal. Lungs decreased breath sounds. CARDIOVASCULAR: First and second sounds normal. No edema. ABDOMEN: Soft. Liver and spleen not palpable. No tenderness. No mass palpable. Hernandez catheter-yellow urine PSYCHIATRY: Awake, answering questions appropriately INVESTIGATIONS, reviewed in the clinical context: March 21: Potassium 3.7 BUN 24 creatinine 1.60 03/20/2022: Potassium 3.5 BUN 30 creatinine 1.7 to 03/19/2022: Potassium 3.7 BUN 40 creatinine 2.05 Admission labs [03/15/2022 White count 7.7 hemoglobin 13.4 platelets 265 potassium 4.3 BUN [address] brain: Cerebral atrophy chronic small vessel ischemic changes. 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 Bladder ultrasound: Evidence of bilateral hydronephrosis. Urinary bladder not well seen. 2-D echocardiogram: EF 55%. Assessment and plan: --Acute renal failure: patient was found to have obstructive uropathy likely from BPH with bilateral hydronephrosis and indwelling catheter was placed. : Improving Admission creatinine 5.53 today 1.63 -Acute hypoxic respiratory failure from mild COPD exacberation, and volume overload.: Better His echocardiogram shows normal LV size and systolic function. Improved with lasix. -Altered mental status likely from metabolic encephalopathy from VINAY with component of dementia : Corrected -Paroxysmal Atrial fibrillation with RVR new onset, converted to normal sinus rhythm IV heparin discontinued. Eliquis. Toprol-XL 50 mg a day -IV heparin monitoring discontinued -MSSA UTI present on admission Keflex -Luekocytosis from above improving -Baseline cognitive impairment from Dementia, Alzheimers type: CT brain: showed some chronic small vessel ischemic changes as well have a competent of vascular dementia patient appears to have advanced dementia. Namenda -COPD with acute exacerbation DuoNeb -Hyperlipidemia Lipitor -Depression Zoloft -Benign prostatic hypertrophy on tamsulosin -Full code Disposition: Home Plan - Discharge Summary Discharge Rx Participant: No New Discharge Prescriptions: New Apixaban [Eliquis] 2.5 mg PO BID #60 tab Cephalexin [Keflex] 500 mg PO TID #15 cap Famotidine [Pepcid] 20 mg PO HS #30 tab Metoprolol Succinate (ER) [Toprol XL] 50 mg PO DAILY #30 tab Continue Albuterol Inhaler [Ventolin Hfa Inhaler] 2 puff INHALATION RT-Q6H PRN PRN Reason: Shortness Of Breath Memantine [Namenda] 10 mg PO BID Tamsulosin HCl [Flomax] 0.4 mg PO BID Cholecalciferol [Vitamin D3 (25 Mcg = 1000 Iu)] 50 mcg PO DAILY Glycopyrrolate [Robinul Forte] 2 mg PO TID Umeclidinium [place] [Incruse Ellipta] 1 puff INHALATION RT-DAILY Sertraline [Zoloft] 50 mg PO DAILY Atorvastatin [Lipitor] 10 mg PO DAILY Discontinued Furosemide [Lasix] 40 mg PO BID Potassium Chloride [Klor-Con M20] 20 meq PO DAILY Discharge Medication List Albuterol Inhaler [Ventolin Hfa Inhaler] 2 puff INHALATION RT-Q6H PRN 08/21/16 [History] Memantine [Namenda] 10 mg PO BID 09/24/17 [History] Tamsulosin HCl [Flomax] 0.4 mg PO BID 09/24/17 [History] Atorvastatin [Lipitor] 10 mg PO DAILY 03/15/22 [History] Cholecalciferol [Vitamin D3 (25 Mcg = 1000 Iu)] 50 mcg PO DAILY 03/15/22 [History] Glycopyrrolate [Robinul Forte] 2 mg PO TID 03/15/22 [History] Sertraline [Zoloft] 50 mg PO DAILY 03/15/22 [History] Umeclidinium [place] [Incruse Ellipta] 1 puff INHALATION RT-DAILY 03/15/22 [History] Apixaban [Eliquis] 2.5 mg PO BID #60 tab 03/21/22 [Rx] Cephalexin [Keflex] 500 mg PO TID #15 cap 03/21/22 [Rx] Famotidine [Pepcid] 20 mg PO HS #30 tab 03/21/22 [Rx] Metoprolol Succinate (ER) [Toprol XL] 50 mg PO DAILY #30 tab 03/21/22 [Rx] Follow up Appointment(s)/Referral(s): Martin Montalvo MD [Primary Care Provider] - 1 Week (Appt 03/25, they will call patient to schedule time. ) Home Health,[facility] [NON-STAFF] - Georgi Aguilar MD [STAFF PHYSICIAN] - 1 Week [facility] [NON-STAFF] - 1-2 Days Activity/Diet/Wound Care/Special Instructions: Patient will require a wheelchair to complete ADLs which is unable to be done with a cane or walker r/t COPD, CVA and difficulty with ambulation. Patient will have someone to propel him. Discharge Disposition: HOME SELF-CARE
--- NOTE | 2022-03-25 08:20 | CDI ---
Documentation Clarification Form Date: 03/25/22 From: Amy Lantigua Admit Date: 03/15/2022 3:38:00 PM Patient Name: Mir Delgado Visit Number: [id number] Discharge Date: 03/21/2022 2:32:00 PM ATTENTION: The Clinical Documentation Specialists (CDI) and [facility] Coding Staff appreciate your assistance in clarifying documentation. Please respond to the clarification below the line at the bottom and electronically sign. The CDI & [facility] Coding staff will review the response and follow-up if needed. Please note: Queries are made part of the Legal Health Record. If you have any questions, please contact the author of this message via ITS. Dr. Jamel Mims, Patient has a documented BMI of 44.6 in your 03/19 progress note. Additional clarification is requested. History/Risk Factors: VINAY, metabolic encephalopathy, acute hypoxic respiratory failure, obstructive uropathy, vascular dementia, Alzheimers, COPD in acute exacerbation, self-inflicted urethral injury w gross hematuria, PAF, pyonenephrosis Clinical Indicators: Per H&P patient is obese, probably taking his Lasix for peripheral edema. Patients weight is 137kg Patients height is 5 foot 9 inches Calculated BMI is 44.6 Skin care/assessment: Skin intact with chronic skin changes of lower extremities with trace of edema. Treatments: Nutritional Education: Heart Healthy, chopped diet Need of several nursing staff to lift/turn, total assist. Please clarify if patients BMI indicates an additional diagnosis: [ ] Morbid (Extreme) (severe) obesity [ ] No additional diagnosis/not clinically significant [ ] Other, please specify ____ [ ] Unable to determine Reference: NIH Classification for BMI Overweight BMI 2529.9 Obesity (Class 1) BMI 3034.9 Obesity (Class 2) BMI 3539.9 Morbid obesity (Class 3/Extreme/severe) BMI =40 Morbid obesity MTDD
--- NOTE | 2022-03-31 09:56 | CDI ---
Documentation Clarification Form Date: 03/18/2022 2:36:00 PM From: Cecily Gaspar Phone: Admit Date: 03/15/2022 3:38:00 PM Patient Name: Mir Delgado Visit Number: [id number] Discharge Date: 03/21/2022 2:32:00 PM ATTENTION: The Clinical Documentation Specialists (CDI) and [facility] Coding Staff appreciate your assistance in clarifying documentation. Please respond to the clarification below the line at the bottom and electronically sign. The CDI & [facility] Coding staff will review the response and follow-up if needed. Please note: Queries are made part of the Legal Health Record. If you have any questions, please contact the author of this message via ITS. Dr. Jose Blakely Heart Failure is documented in 03/16 Nephrology Consult: Possible Congestive Heart Failure. Given one dose of IV Lasix 20 mg. Per the 03/15 H/P: Patient does take Lasix at home but has no history of CHF, probably takes Lasix for peripheral edema. Has no cyanosis, clubbing or pedal edema of extremities. 03/16 Attending Progress Note: Has mild peripheral edema. Per the 03/17 Attending Physician Progress Note: Acute hypoxic respiratory failure most likely from CHF exacerbation, received a dose of Lasix & continues on 2-3L O2. Additional information regarding the Type & Acuity of CHF is requested. History/Risk Factors per the 03/15 H/P: Alzheimer's dementia, Obese (BMI 44.6), COPD, TIA, OA, Osteoarthritis bilateral knees. Clinical Indicators: Presented to the ED on 03/15 via EMS with Weakness and Altered Mental Status. Admit with VINAY. 03/15 VS: T 97.4, P 72, R 22, BP 146/83, PO 98 2Lnc, BMI: 44.6. 03/16 VS: T 99.1, P 78, R 22, BP 110/61, PO 95 3Lnc 03/15 Blood Gas (VBG): PH 7.22, pCO2 62, HCO3 32 03/15 LAB: CO2 31, BUN 73, Creatinine 5.53, Glucose 118, Phosphorus 6.8, Magnesium 2.4 03/16 BNP: 1930 03/15 CXR: There is no heart failure. 03/16 CXR: Correlate with BNP for CHF. 03/17 ECHO (Indication: CHF): EF 55%, Normal LV size & systolic function. Treatment 03/15: Telemetry, Henry catheter placed, O2 2-3Lnc, IV Na Chloride 1,0000 mls @ 999 mls/hr q1H, INH Ventolin 2.5 mg q6H/prn. 03/16: O2 3Lnc, IV Lasix 20 mg x1. In your professional opinion, can you please clarify the Acuity & Type of CHF if known? [ ] Acute Diastolic Heart Failure [ ] Chronic Diastolic Heart Failure [ ] Acute on Chronic Diastolic Heart Failure [ x] CHF ruled out [ ] Other, please specify [ ] Unable to determine (Template Last Revised: April 2020) MTDD
== END 2022-03-21 14:32 | disposition home health service (06) | DRG 682 ==
LOC: EC 13:09 → 4SSUR 15:38 → 3SCARD 03-17 00:31
PROVIDERS: ADMIT Hospitalist; ATTEND Hospitalist
DX: N17.9 Acute kidney failure, unspecified (principal); G93.41 Metabolic encephalopathy; J96.01 Acute respiratory failure with hypoxia; J44.1 Chronic obstructive pulmonary disease with (acute) exacerbation; N13.8 Other obstructive and reflux uropathy; S37.30XA Unspecified injury of urethra, initial encounter; F01.53 Vascular dementia, unspecified severity, with mood disturbance; F02.83 Dementia in other diseases classified elsewhere, unspecified severity, with mood disturbance; Z68.41 Body mass index [BMI] 40.0-44.9, adult; G30.9 Alzheimer's disease, unspecified; E66.01 Morbid (severe) obesity due to excess calories; I48.0 Paroxysmal atrial fibrillation; N13.6 Pyonephrosis; Z20.822 Contact with and (suspected) exposure to COVID-19; Z28.310 Unvaccinated for COVID-19; B95.61 Methicillin susceptible Staphylococcus aureus infection as the cause of diseases classified elsewhere; I10 Essential (primary) hypertension; E78.5 Hyperlipidemia, unspecified; R31.0 Gross hematuria; N40.1 Benign prostatic hyperplasia with lower urinary tract symptoms; N39.498 Other specified urinary incontinence; E66.9 Obesity, unspecified; K59.00 Constipation, unspecified; M19.90 Unspecified osteoarthritis, unspecified site; Z79.899 Other long term (current) drug therapy; Z87.891 Personal history of nicotine dependence; Z86.73 Personal history of transient ischemic attack (TIA), and cerebral infarction without residual deficits; Z71.3 Dietary counseling and surveillance; X58.XXXA Exposure to other specified factors, initial encounter
CPT/HCPCS: 36415; 51702; 70450; 71045; 71046; 74018; 76770; 80048; 80053; 81001; 82140; 82570; 82803; 83605; 83735; 83880; 84100; 84145; 84300; 84484; 85025; 85610; 85730; 87040; 87077; 87086; 87186; 87636; 93005; 93306; 94640; 94760; 99285